=== PATIENT | male | born 1980 | race Caucasian/White ===

== ENCOUNTER → 2018-11-23 16:17 | Outpatient (CLI) | payer BC, SELFPAY | PROVIDERS: PCP Family Medicine; Visit Provider Family Medicine | DX: R53.83 Other fatigue (principal) | CPT/HCPCS: 36415; 84403 ==

== ENCOUNTER → 2020-10-05 12:26 | Outpatient (CLI) | payer OTHER, MEDICAID, SELFPAY ==
[2020-10-05 19:02] LABS: Semen Sperm Prescence Post-Vas Absent (ABSENT)
== END ==
PROVIDERS: PCP Family Medicine; Referring Provider Family Medicine; Visit Provider Family Medicine
DX: Z98.52 Vasectomy status (principal)
CPT/HCPCS: 89321

== ENCOUNTER → 2021-05-05 14:13 | Outpatient (CLI) | payer OTHER, MEDICAID, SELFPAY ==
--- NOTE | 2021-05-05 14:15 | DI.RAD.S_ITS ---
PROCEDURE: XR ELBOW LT MIN 3V INDICATIONS: elbow pain TECHNIQUE: 3 views of the elbow were acquired. COMPARISON: None. FINDINGS: Bones: No fractures or dislocations. No suspicious bony lesions. Soft tissues: No elbow joint effusion. No suspicious soft tissue calcifications. IMPRESSION: No acute osseous abnormality. Dictated by: Shalom Calhoun M.D. on 05/05/2021 at 14:46 Approved by: Shalom Calhoun M.D. on 05/05/2021 at 14:46
== END ==
PROVIDERS: PCP Family Medicine; Referring Provider Family Medicine; Visit Provider Family Medicine
DX: M25.522 Pain in left elbow (principal)
CPT/HCPCS: 73080

== ENCOUNTER → 2022-02-01 10:08 | Outpatient (CLI) | payer OTHER, MEDICAID, SELFPAY ==
[2022-02-01 12:14] LABS: Influenza A - CEPHEID Flu A NEGATIVE (NEGATIVE); Influenza B - CEPHEID Flu B NEGATIVE (NEGATIVE); Respiratory Syncytial Virus Negative (Negative)
[2022-02-01 12:16] LABS: COVID-19 CEPHEID 4-PLEX PCR Negative (Negative)
== END ==
PROVIDERS: PCP Family Medicine; Visit Provider Registered Nurse
DX: R05.9 Cough, unspecified (principal)
CPT/HCPCS: 0241U

== ENCOUNTER → 2023-01-29 15:55 | Outpatient (CLI) | payer OTHER, MEDICAID, SELFPAY ==
--- NOTE | 2023-01-29 15:57 | DI.US.S_ITS ---
PROCEDURE: US RENAL COMPLETE INDICATIONS: URINARY FREQUENCY; SENSATION OF POST VOID RESIDUAL TECHNIQUE: Real-time scanning was performed of the kidneys and bladder, with image documentation. COMPARISON: None. FINDINGS: Kidneys: Kidneys are normal in size. Right kidney measures 10.4 cm long; left kidney measures 2.1 cm long. Right renal cortical thickness is 10.0 cm; left renal cortical thickness is 2.0 cm. Renal cortical echotexture is normal. No hydronephrosis. Question small right renal stones. Question possible left renal pelvic stones. No suspicious solid mass lesions. Bladder: Pre-void bladder volume is 298.6 mL. Post-void residual is 47.4 mL. Pre-void images demonstrate no intraluminal masses or stones. On pre-void images, a unilateral right ureteral jets is noted with color Doppler interrogation. (Of note, ureteral jets may not be detectable in up to 25% of cases due to insufficient differences in specific gravity between ureteral and bladder urine). Miscellaneous: No free pelvic fluid. IMPRESSION: 1. Normal size kidneys with no evidence of hydronephrosis. 2. Possible bilateral nonobstructing renal stones. 3. Mild postvoid residual. Comment: Consider CT KUB to evaluate possible renal stone disease, including a possible left renal pelvic stone. Dictated by: Gavin Beaver M.D. on 01/29/2023 at 17:14 Approved by: Gavin Beaver M.D. on 01/29/2023 at 17:17
== END ==
PROVIDERS: PCP Family Medicine; Referring Provider Physician Assistant; Visit Provider Physician Assistant
DX: R35.0 Frequency of micturition (principal)
CPT/HCPCS: 76770

== ENCOUNTER → 2023-02-24 13:27 | Outpatient (CLI) | payer OTHER, MEDICAID, SELFPAY ==
--- NOTE | 2023-02-24 13:28 | DI.CT.S_ITS ---
PROCEDURE: CT KIDNEY URETER BLADDER (KUB) INDICATIONS: Back pain; kidney stones seen on renal US TECHNIQUE: Axial sections were acquired from the lung bases to the pubic symphysis. Coronal and sagittal reformats were performed. For radiation dose reduction, the following was used: automated exposure control, adjustment of mA and/or kV according to patient size. COMPARISON: [facility], US, US RENAL COMPLETE, 01/29/2023, 16:08. FINDINGS: Image quality: Excellent. Lung bases: Unremarkable. Heart: No significant findings. URINARY: Right Kidney: No stones or hydronephrosis. Right Ureter: No hydroureter. Left Kidney: No stones or hydronephrosis. Left Ureter: No hydroureter. Bladder: Normal wall thickness. No stones. ABDOMEN: Liver: No contour-deforming solid mass. Gallbladder: No radiopaque gallstones or wall thickening. Biliary ducts: No biliary dilation. Pancreas: No ductal dilation. Spleen: Size is within normal limits. Adrenal Glands: No adrenal nodules. Stomach and Bowel: Normal colonic caliber, without significant wall thickening. Peritoneum: No abnormal intraperitoneal fluid. No free air. Ventral Wall: No hernia. Abdominal Nodes: No enlarged retroperitoneal or mesenteric lymph nodes. Vessels: Aorta and inferior vena cava are normal in size. PELVIS: Pelvic Organs: Unremarkable. Pelvic Nodes: Unremarkable. Miscellaneous: No inguinal hernias are seen. Bones: Unremarkable. IMPRESSION: 1. No renal stone, ureteral stone, or hydronephrosis. 2. No acute abdominal process. Dictated by: Gavin Beaver M.D. on 02/24/2023 at 18:45 Approved by: Gavin Beaver M.D. on 02/24/2023 at 18:47
== END ==
PROVIDERS: Family Provider Family Medicine; PCP Family Medicine; Referring Provider Physician Assistant; Visit Provider Physician Assistant
DX: N20.0 Calculus of kidney (principal)
CPT/HCPCS: 74176

== ENCOUNTER → 2023-03-02 11:29 | Outpatient (CLI) | payer OTHER, MEDICAID, SELFPAY ==
[2023-03-02 12:39] LABS: COVID-19 CEPHEID 4-PLEX PCR Negative (Negative); Influenza A - CEPHEID Flu A NEGATIVE (NEGATIVE); Influenza B - CEPHEID Flu B NEGATIVE (NEGATIVE); Respiratory Syncytial Virus Negative (Negative)
== END ==
PROVIDERS: Family Provider Family Medicine; PCP Family Medicine; Visit Provider Physician Assistant
DX: R05.1 Acute cough (principal)
CPT/HCPCS: 0241U

== ENCOUNTER → 2023-07-31 17:41 | Outpatient (CLI) | payer OTHER, MEDICAID, SELFPAY | PROVIDERS: Family Provider Family Medicine; PCP Family Medicine; Visit Provider Nurse Practitioner Family | DX: J02.9 Acute pharyngitis, unspecified (principal) | CPT/HCPCS: 87070; 87880 ==

== ENCOUNTER 2023-09-13 15:15 | Outpatient (RCR) | payer OTHER, MEDICAID, SELFPAY ==
--- NOTE | 2023-03-23 10:23 | PT.OIE ---
Current Diagnoses Pain in right hip (03/23/23) Pain in right knee (03/23/23) Pain in left knee (03/23/23) Low back pain, unspecified (03/23/23) Muscle weakness (generalized) (03/23/23) Difficulty in walking, not elsewhere classified (03/23/23) Abnormal posture (03/23/23) Past Medical History (Last Reviewed 02/01/22 @ 10:29 by CONCETTA Beyer) Fatigue Trigger finger Past Surgical History (Last Reviewed 02/01/22 @ 10:29 by CONCETTA Beyer) History of third molar tooth extraction Visit Care Team Role Provider Type Mina Van MD Family Provider Physician Primary Care Provider Specialty: Family Practice Address: [address] [place] [address], [id number] Email: [email or web address] Ju Tafoya PA-C Attending Provider Advanced Food Aide Referring Provider Specialty: Medical Address: [address] [place] [address], [id number] Email: [email or web address] Physical Therapy Initial Evaluation PT-OP-A Visit Information Start: 03/09/23 10:58 Freq: Status: Active Protocol: Document 03/23/23 09:11 [facility] (Rec: 03/23/23 10:22 [facility] [id number]) Out-Patient Physical Therapy Visit Information Visit Information Visit Type Initial Evaluation Visit Note 24 total visits in the year Visit Start Time 09:10 Visit Stop Time 10:00 Total Visit Minutes 50 Visit Number 1 Number of BROADCAST NEWS PRODUCER Visits 0 PT-OP-B Current Condition Start: 03/09/23 10:58 Freq: Status: Active Protocol: Document 03/23/23 09:11 [facility] (Rec: 03/23/23 10:22 [facility] [id number]) Current Condition History of Current Condition Current Complaints R hip pain (1 year ago), back pain, B knee pain History of Current Condition Pt reports he has some stomach issues and is adjusting his diet. It seems its getting better but still a problem. he has cut out wheat, and coffee . Pt reports sometimes its just when he eats, that he has pain. Since going back to work, he has inc stress and notes he always had some stomach issues in HS when stressed. 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 He has neck pain, WEBBER, thoracic pain, R hip , LB, B feet and B hands. Hip issue comes and goes. Unsure if from his activities. Has been doing stretches which helps. He notes taking out the gluten has helped w/his dietary changes. He has lost about 10 lbs in last month. It first came on when stretching (tries to at night after work ). He was getting up off the floor and felt a pop in his hip and it has never been excrutiating, but it definitely affects like he is thinking about it. He doesn't notice it much when walking, but when when lifting leg out of bed, feels it in ant hip. Gets tingling in B ring and pinky finger. Knees and feet have been better since taken out wheat for past 3 weeks. LBP is always tight and tense and feels stiff. This has been several years. Does feel like the diet is improving. He used to have to wear shoes in his house d/t barefeet would cause back, knee and hip pian and now can not wear shoes, and only feels it way later in the activity and it is less severe. Goes through phases when real stiff and sore. 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 Thoracic pain has been since he was younger (27 y.o) and had pain in chest. He hasn't felt that again but still feels hot spots in back that come up. Has had B shoulder problems. Notices abdomen bloating and has hx of diahrea. Treatment Goals Patient/Caregiver Goals dec pain and be able to do normal activities w/o inc pain PT-OP-C Subjective Start: 03/09/23 10:58 Freq: Status: Active Protocol: Document 03/23/23 09:11 [facility] (Rec: 03/23/23 10:22 [facility] [id number]) Patient Questionnaires Lower Extremity Functional Scale LEFS Score 55/80 OP-PT Pain Assessment Location R hip Pain Location Details ant Description Sharp,With Movement Frequency Intermittent Other Pain Aggravating Factors lat and lifting RLE PT-OP-D Balance Start: 03/09/23 10:58 Freq: Status: Active Protocol: Document 03/23/23 09:11 [facility] (Rec: 03/23/23 10:22 [facility] [id number]) Balance Tests Single Limb Standing Single Limb- Right 25 sec w/inc deviation Single Limb- Left >30 sec PT-OP-G Mobility & Gait Start: 03/09/23 10:58 Freq: Status: Active Protocol: Document 03/23/23 09:11 [facility] (Rec: 03/23/23 10:22 [facility] [id number]) OP Gait Assessment Comments Gait Comments stiff in upper body, lat lean; dec stance time on RLE ( slighty); LEs turned out when walking PT-OP-J Posture/Palpation/Skin Start: 03/09/23 10:58 Freq: Status: Active Protocol: Document 03/23/23 09:11 [facility] (Rec: 03/23/23 10:22 [facility] [id number]) Posture Evaluation [facility] Postural Classification System Lumbar Protective Mechanism Left AP 1 Lumbar Protective Mechanism Right AP 0 Lumbar Protective Mechanism Left PA 0 Lumbar Protective Mechanism Right PA 1 PT-OP-K Range of Motion Start: 03/09/23 10:58 Freq: Status: Active Protocol: Document 03/23/23 09:11 [facility] (Rec: 03/23/23 10:22 [facility] [id number]) Hip Goniometric Range of Motion Hip Right Active Flexion w/Knee Flexed 84 Comments ant hip pain Left Active Flexion w/Knee Flexed 90 Comments ant hip pian PT-OP-M Strength Start: 03/09/23 10:58 Freq: Status: Active Protocol: Document 03/23/23 09:11 [facility] (Rec: 03/23/23 10:22 [facility] [id number]) Hip Strength Hip Manual Muscle Testing Right Flexion (L2) 3 Fair Extension (S1) 3+ Fair+ Abduction 3+ Fair+ Adduction 3 Fair External Rotation 3+ Fair+ Internal Rotation 3+ Fair+ Left Flexion (L2) 3 Fair Extension (S1) 4 Good Abduction 4 Good Adduction 3+ Fair+ External Rotation 3+ Fair+ Internal Rotation 3+ Fair+ Knee Strength Knee Manual Muscle Testing Right Flexion (S2) 4+ Good+ Extension (L3) 5 Normal Left Flexion (S2) 4 Good Extension (L3) 4+ Good+ PT-OP-Q Treatments Start: 03/09/23 10:58 Freq: Status: Active Protocol: Document 03/23/23 09:11 [facility] (Rec: 03/23/23 10:22 [facility] [id number]) Self-Care/Home Management Treatment Education Other Education 15 min: discussion about how gluten can create inflammatory affect and to cont this. Edu to keep an eye on dairy also as it is a common inflamatory. Edu how visceral restrictions can cause or connect w/LBP and hip pain. Discussed w/pt that his ROM, balance and strength is very limited and much less than would be expected of a man of his activity level and young age and this may be contributing to his pain. PT-OP-T Assessment and Plan Start: 03/09/23 10:58 Freq: Status: Active Protocol: Document 03/23/23 09:11 [facility] (Rec: 03/23/23 10:22 [facility] [id number]) Physical Therapy Assessment Rehab Potential Rehabilitation Potential Good Evaluation Complexity Number of Personal Factors/Comorbidities 3 or More Number of Body Systems Impaired 4 or More Clinical Presentation at Evaluation Evolving Impairments Impairments Activity Tolerance,Balance, Functional Activities, Functional Mobility,Gait,Pain, Posture,ROM,Soft Tissue Mobility,Strength Goals pain Short Term Goal (STG) pt will be able to lift LE in/ out of bed w/o in R hip pain. STG Duration 05/14/23 Skilled Nursing Goal (LTG) Pt will report no LE or back pain at the end of the day or when on his feet extended LTG Duration 06/15/23 balance Short Term Goal (STG) Pt will be able to do SLS on RLE EC for at least 30 sec STG Duration 05/14/23 Wharf Tender Helper Goal (LTG) Pt will be able to do SLS B w/ EC for at least 15 sec LTG Duration 06/15/23 strength Short Term Goal (STG) Pt will be indep w/HEP STG Duration 05/14/23 Wharf Tender Helper Goal (LTG) Pt will score 5/5 on all B LE MMT and at least 3/5 on LPM in all planes in order to show improved core and LE strength in order to create more LE stability during daily activities to dec pain LTG Duration 06/15/23 LEFS Impairment 55/80 Short Term Goal (STG) Pt will improve LEFS score to at least 62/80 to show improved functional ability. STG Duration 05/14/23 Wharf Tender Helper Goal (LTG) Pt will improve LEFS score to at least 75/80 to show improved functional ability. LTG Duration 06/15/23 Assessment Summary Assessment Pt presents w/R hip pain that started about 6 months ago when getting up from the ground after stretching and he heard a pop. He has the most pain in open chain activities that include hip flex and abd like getting out of bed. 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 He has pain in multiple joints and has found improvement w/pain w/dec gluten and coffee/caffeine. He does have B foot pain and knee pain w/standing and by the end of the day especially when barefoot which may affect R hip pain and back pain as those inc also and may affect hip position based on ankle/ knee position. He has dec balance for his age and activity level especially on R side along w/signficant R sided weakness and B (R>L) dec hip ROM w/impingment. He also has history of visceral issues w/clear CT scan of abdomen that have soem improvement w/diet change, but visceral ligamentous restrictions may affect mobility of his hip and back. Pt would benefit from skilled PT to work on dec back pain, hip pain and B Knee/ankle/foot pain. Physical Therapy Plan Frequency and Duration Frequency of Treatment 1-2x/wk Duration of treatment (weeks) 12 Plan of Care Start Date 03/23/23 Plan of Care End Date 06/15/23 Therapeutic Interventions Therapeutic Interventions Balance Training,Gait Training ,Home Exercise Program,Joint Mobilizations,Manual Therapy, Neuromuscular Re-education, Patient/Caregiver Education, Self-Care/Home Management,Soft Tissue Mobilization,Taping, Therapeutic Activities, Therapeutic Exercises Modalities Cold Pack/Ice Massage,Electric Stimulation,Infrared Therapy, Traction- Mechanical, Ultrasound Next Visit Focus/Plan Next Note Type Treatment Note Next Visit Plan manual: hip mobs (check if innominate elevated or leg length and possibly address innominate mobility), visceral mobilization; soft tissue to hip flexor HEP: standing hip strength ( squats, lunges, RDLs, sidesteps), SLS, hip hikes
--- NOTE | 2023-03-23 10:23 | PT.OPPOC ---
Physical, Occupational & Speech Therapy At [facility] Current Diagnoses Pain in right hip (03/23/23) Pain in right knee (03/23/23) Pain in left knee (03/23/23) Low back pain, unspecified (03/23/23) Muscle weakness (generalized) (03/23/23) Difficulty in walking, not elsewhere classified (03/23/23) Abnormal posture (03/23/23) Visit Care Team Role Provider Type Mina Van MD Family Provider Physician Primary Care Provider Specialty: Family Practice Address: [address] [place] [address], [address], [address] Email: [email or web address] Ju Tafoya PA-C Attending Provider Advanced Lawn Service Supervisor Referring Provider Specialty: Medical Address: [address] [place] [address], [place] [address] Email: [email or web address] Plan Of Care PT-OP-T Assessment and Plan Start: 03/09/23 10:58 Freq: Status: Active Protocol: Document 03/23/23 09:11 [facility] (Rec: 03/23/23 10:22 [facility] [id number]) Physical Therapy Assessment Rehab Potential Rehabilitation Potential Good Evaluation Complexity Number of Personal Factors/Comorbidities 3 or More Number of Body Systems Impaired 4 or More Clinical Presentation at Evaluation Evolving Impairments Impairments Activity Tolerance,Balance, Functional Activities, Functional Mobility,Gait,Pain, Posture,ROM,Soft Tissue Mobility,Strength Goals pain Short Term Goal (STG) pt will be able to lift LE in/ out of bed w/o in R hip pain. STG Duration 05/14/23 Shelter Goal (LTG) Pt will report no LE or back pain at the end of the day or when on his feet extended LTG Duration 06/15/23 balance Short Term Goal (STG) Pt will be able to do SLS on RLE EC for at least 30 sec STG Duration 05/14/23 Shelter Goal (LTG) Pt will be able to do SLS B w/ EC for at least 15 sec LTG Duration 06/15/23 strength Short Term Goal (STG) Pt will be indep w/HEP STG Duration 05/14/23 Shelter Goal (LTG) Pt will score 5/5 on all B LE MMT and at least 3/5 on LPM in all planes in order to show improved core and LE strength in order to create more LE stability during daily activities to dec pain LTG Duration 06/15/23 LEFS Impairment 55/80 Short Term Goal (STG) Pt will improve LEFS score to at least 62/80 to show improved functional ability. STG Duration 05/14/23 Shelter Goal (LTG) Pt will improve LEFS score to at least 75/80 to show improved functional ability. LTG Duration 06/15/23 Assessment Summary Assessment Pt presents w/R hip pain that started about 6 months ago when getting up from the ground after stretching and he heard a pop. He has the most pain in open chain activities that include hip flex and abd like getting out of bed. 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 He has pain in multiple joints and has found improvement w/pain w/dec gluten and coffee/caffeine. He does have B foot pain and knee pain w/standing and by the end of the day especially when barefoot which may affect R hip pain and back pain as those inc also and may affect hip position based on ankle/ knee position. He has dec balance for his age and activity level especially on R side along w/signficant R sided weakness and B (R>L) dec hip ROM w/impingment. He also has history of visceral issues w/clear CT scan of abdomen that have soem improvement w/diet change, but visceral ligamentous restrictions may affect mobility of his hip and back. Pt would benefit from skilled PT to work on dec back pain, hip pain and B Knee/ankle/foot pain. Physical Therapy Plan Frequency and Duration Frequency of Treatment 1-2x/wk Duration of treatment (weeks) 12 Plan of Care Start Date 03/23/23 Plan of Care End Date 06/15/23 Therapeutic Interventions Therapeutic Interventions Balance Training,Gait Training ,Home Exercise Program,Joint Mobilizations,Manual Therapy, Neuromuscular Re-education, Patient/Caregiver Education, Self-Care/Home Management,Soft Tissue Mobilization,Taping, Therapeutic Activities, Therapeutic Exercises Modalities Cold Pack/Ice Massage,Electric Stimulation,Infrared Therapy, Traction- Mechanical, Ultrasound Next Visit Focus/Plan Next Note Type Treatment Note Next Visit Plan manual: hip mobs (check if innominate elevated or leg length and possibly address innominate mobility), visceral mobilization; soft tissue to hip flexor HEP: standing hip strength ( squats, lunges, RDLs, sidesteps), SLS, hip hikes Plan of Care Dates Plan of Care Start Date 03/23/23 Plan of Care End Date 06/15/23 Electronically Signed by: Gifty Vernon, PT 03/23/23 1027 If you are in agreement with this Plan of Care, please return a signed and dated copy. I have reviewed this Plan of Care and certify that the skilled therapy services above are required to meet the patient?s needs. Physician Signature Date Printed Name and Credentials Clinical Instructor Signature Printed Name and Credentials
--- NOTE | 2023-03-25 10:49 | PT.OTN ---
Current Diagnoses Pain in right hip (03/25/23) Pain in right knee (03/25/23) Pain in left knee (03/25/23) Low back pain, unspecified (03/25/23) Muscle weakness (generalized) (03/25/23) Difficulty in walking, not elsewhere classified (03/25/23) Abnormal posture (03/25/23) Physical Therapy Treatment Note PT-OP-A Visit Information Start: 03/09/23 10:58 Freq: Status: Active Protocol: Document 03/25/23 08:20 [facility] (Rec: 03/25/23 10:48 [facility] [id number]) Out-Patient Physical Therapy Visit Information Visit Information Visit Type Treatment Note Visit Note 24 total visits in the year Visit Start Time 08:20 Visit Stop Time 09:10 Total Visit Minutes 50 Visit Number 2 Number of ANIMAL DAMAGE CONTROL AGENT Visits 0 PT-OP-B Current Condition Start: 03/09/23 10:58 Freq: Status: Active Protocol: Document 03/23/23 09:11 [facility] (Rec: 03/23/23 10:22 [facility] [id number]) Current Condition History of Current Condition Current Complaints R hip pain (1 year ago), back pain, B knee pain History of Current Condition Pt reports he has some stomach issues and is adjusting his diet. It seems its getting better but still a problem. he has cut out wheat, and coffee . Pt reports sometimes its just when he eats, that he has pain. Since going back to work, he has inc stress and notes he always had some stomach issues in HS when stressed. 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 He has neck pain, WEBBER, thoracic pain, R hip , LB, B feet and B hands. Hip issue comes and goes. Unsure if from his activities. Has been doing stretches which helps. He notes taking out the gluten has helped w/his dietary changes. He has lost about 10 lbs in last month. It first came on when stretching (tries to at night after work ). He was getting up off the floor and felt a pop in his hip and it has never been excrutiating, but it definitely affects like he is thinking about it. He doesn't notice it much when walking, but when when lifting leg out of bed, feels it in ant hip. Gets tingling in B ring and pinky finger. Knees and feet have been better since taken out wheat for past 3 weeks. LBP is always tight and tense and feels stiff. This has been several years. Does feel like the diet is improving. He used to have to wear shoes in his house d/t barefeet would cause back, knee and hip pian and now can not wear shoes, and only feels it way later in the activity and it is less severe. Goes through phases when real stiff and sore. 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 Thoracic pain has been since he was younger (27 y.o) and had pain in chest. He hasn't felt that again but still feels hot spots in back that come up. Has had B shoulder problems. Notices abdomen bloating and has hx of diahrea. Treatment Goals Patient/Caregiver Goals dec pain and be able to do normal activities w/o inc pain PT-OP-C Subjective Start: 03/09/23 10:58 Freq: Status: Active Protocol: Document 03/25/23 08:20 [facility] (Rec: 03/25/23 10:48 [facility] [id number]) OP-PT Subjective Patient Comments Patient Comments fine after eval PT-OP-D Balance Start: 03/09/23 10:58 Freq: Status: Active Protocol: Document 03/23/23 09:11 [facility] (Rec: 03/23/23 10:22 [facility] [id number]) Balance Tests Single Limb Standing Single Limb- Right 25 sec w/inc deviation Single Limb- Left >30 sec PT-OP-G Mobility & Gait Start: 03/09/23 10:58 Freq: Status: Active Protocol: Document 03/23/23 09:11 [facility] (Rec: 03/23/23 10:22 [facility] [id number]) OP Gait Assessment Comments Gait Comments stiff in upper body, lat lean; dec stance time on RLE ( slighty); LEs turned out when walking PT-OP-J Posture/Palpation/Skin Start: 03/09/23 10:58 Freq: Status: Active Protocol: Document 03/23/23 09:11 [facility] (Rec: 03/23/23 10:22 [facility] [id number]) Posture Evaluation [facility] Postural Classification System Lumbar Protective Mechanism Left AP 1 Lumbar Protective Mechanism Right AP 0 Lumbar Protective Mechanism Left PA 0 Lumbar Protective Mechanism Right PA 1 PT-OP-K Range of Motion Start: 03/09/23 10:58 Freq: Status: Active Protocol: Document 03/23/23 09:11 [facility] (Rec: 03/23/23 10:22 [facility] [id number]) Hip Goniometric Range of Motion Hip Right Active Flexion w/Knee Flexed 84 Comments ant hip pain Left Active Flexion w/Knee Flexed 90 Comments ant hip pian PT-OP-M Strength Start: 03/09/23 10:58 Freq: Status: Active Protocol: Document 03/23/23 09:11 [facility] (Rec: 03/23/23 10:22 [facility] [id number]) Hip Strength Hip Manual Muscle Testing Right Flexion (L2) 3 Fair Extension (S1) 3+ Fair+ Abduction 3+ Fair+ Adduction 3 Fair External Rotation 3+ Fair+ Internal Rotation 3+ Fair+ Left Flexion (L2) 3 Fair Extension (S1) 4 Good Abduction 4 Good Adduction 3+ Fair+ External Rotation 3+ Fair+ Internal Rotation 3+ Fair+ Knee Strength Knee Manual Muscle Testing Right Flexion (S2) 4+ Good+ Extension (L3) 5 Normal Left Flexion (S2) 4 Good Extension (L3) 4+ Good+ PT-OP-Q Treatments Start: 03/09/23 10:58 Freq: Status: Active Protocol: Document 03/25/23 08:20 [facility] (Rec: 03/25/23 10:48 [facility] [id number]) Therapeutic Exercises Prone Exercises hip rot Prone Exercise Name ER Side bilateral Equipment Used L1 Reps/Minutes 10 Standing Exercises HS stretch Side right Reps/Minutes 30 sec hip flexor stretch Side right Reps/Minutes 30 sec bottoms up Side bilateral Reps/Minutes 5 sec x10 Other Exercises forrest pose Side bilateral Reps/Minutes [id number] Comments 2x w/flex bias Manual Therapy Treatment Soft Tissue Mobilization hip flexor Body Location R Mobilization Type Sustained Pressure Intensity/Depth Moderate Body Position Supine back Body Location paraspinals Mobilization Type Rolling Intensity/Depth Moderate Body Position Prone Joint Mobilizations innominate Joint R caudal & B ER FM Body Position Prone hip Joint on axis ER FM w/manual facilitation at end range & R inf FM Body Position Prone PT-OP-T Assessment and Plan Start: 03/09/23 10:58 Freq: Status: Active Protocol: Document 03/25/23 08:20 [facility] (Rec: 03/25/23 10:48 [facility] [id number]) Physical Therapy Assessment Goals pain Short Term Goal (STG) pt will be able to lift LE in/ out of bed w/o in R hip pain. STG Duration 05/14/23 Digital Account Manager Goal (LTG) Pt will report no LE or back pain at the end of the day or when on his feet extended LTG Duration 06/15/23 balance Short Term Goal (STG) Pt will be able to do SLS on RLE EC for at least 30 sec STG Duration 05/14/23 Digital Account Manager Goal (LTG) Pt will be able to do SLS B w/ EC for at least 15 sec LTG Duration 06/15/23 strength Short Term Goal (STG) Pt will be indep w/HEP STG Duration 05/14/23 Group Home Goal (LTG) Pt will score 5/5 on all B LE MMT and at least 3/5 on LPM in all planes in order to show improved core and LE strength in order to create more LE stability during daily activities to dec pain LTG Duration 06/15/23 LEFS Impairment 55/80 Short Term Goal (STG) Pt will improve LEFS score to at least 62/80 to show improved functional ability. STG Duration 05/14/23 Digital Account Manager Goal (LTG) Pt will improve LEFS score to at least 75/80 to show improved functional ability. LTG Duration 06/15/23 Assessment Summary Assessment Pt did well with manual having much improved hip ER after. He did have R hip soreness and some back soreness w/manual and iced R hp prior to leaving clinic. he did well with stretching and mobility exercises w/o inc pain. Physical Therapy Plan Frequency and Duration Frequency of Treatment 1-2x/wk Duration of treatment (weeks) 12 Plan of Care Start Date 03/23/23 Plan of Care End Date 06/15/23 Next Visit Focus/Plan Next Note Type Treatment Note Next Visit Plan manual: hip mobs (check if innominate elevated or leg length and possibly address innominate mobility), visceral mobilization; soft tissue to hip flexor HEP: review exercises & add standing hip strength (squats, lunges, RDLs, sidesteps), SLS , hip hikes
--- NOTE | 2023-03-29 09:05 | PT.OTN ---
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 Original Note: Current Diagnoses Pain in right hip (03/29/23) Pain in right knee (03/29/23) Pain in left knee (03/29/23) Low back pain, unspecified (03/29/23) Muscle weakness (generalized) (03/29/23) Difficulty in walking, not elsewhere classified (03/29/23) Abnormal posture (03/29/23) Physical Therapy Treatment Note PT-OP-A Visit Information Start: 03/09/23 10:58 Freq: Status: Active Protocol: Document 03/29/23 08:21 [facility] (Rec: 03/29/23 09:06 [facility] [id number]) Out-Patient Physical Therapy Visit Information Visit Information Visit Type Treatment Note Visit Note [facility] PT: 06/05, total visits in the year Visit Start Time 08:21 Visit Stop Time 09:05 Total Visit Minutes 44 Visit Number 3 Number of BREAD ROOM HAND Visits 1 PT-OP-B Current Condition Start: 03/09/23 10:58 Freq: Status: Active Protocol: Document 03/23/23 09:11 [facility] (Rec: 03/23/23 10:22 [facility] [id number]) Current Condition History of Current Condition Current Complaints R hip pain (1 year ago), back pain, B knee pain History of Current Condition Pt reports he has some stomach issues and is adjusting his diet. It seems its getting better but still a problem. he has cut out wheat, and coffee . Pt reports sometimes its just when he eats, that he has pain. Since going back to work, he has inc stress and notes he always had some stomach issues in HS when stressed. 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 He has neck pain, WEBBER, thoracic pain, R hip , LB, B feet and B hands. Hip issue comes and goes. Unsure if from his activities. Has been doing stretches which helps. He notes taking out the gluten has helped w/his dietary changes. He has lost about 10 lbs in last month. It first came on when stretching (tries to at night after work ). He was getting up off the floor and felt a pop in his hip and it has never been excrutiating, but it definitely affects like he is thinking about it. He doesn't notice it much when walking, but when when lifting leg out of bed, feels it in ant hip. Gets tingling in B ring and pinky finger. Knees and feet have been better since taken out wheat for past 3 weeks. LBP is always tight and tense and feels stiff. This has been several years. Does feel like the diet is improving. He used to have to wear shoes in his house d/t barefeet would cause back, knee and hip pian and now can not wear shoes, and only feels it way later in the activity and it is less severe. Goes through phases when real stiff and sore. 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 Thoracic pain has been since he was younger (27 y.o) and had pain in chest. He hasn't felt that again but still feels hot spots in back that come up. Has had B shoulder problems. Notices abdomen bloating and has hx of diahrea. Treatment Goals Patient/Caregiver Goals dec pain and be able to do normal activities w/o inc pain PT-OP-C Subjective Start: 03/09/23 10:58 Freq: Status: Active Protocol: Document 03/29/23 08:21 [facility] (Rec: 03/29/23 09:06 [facility] [id number]) OP-PT Subjective Patient Comments Patient Comments Pt did ok after last tx into later and next day. COmpliant with HEP. Feels discomfort L anterior hip when lifts leg unsupported or squatting. PT-OP-D Balance Start: 03/09/23 10:58 Freq: Status: Active Protocol: Document 03/23/23 09:11 [facility] (Rec: 03/23/23 10:22 [facility] [id number]) Balance Tests Single Limb Standing Single Limb- Right 25 sec w/inc deviation Single Limb- Left >30 sec PT-OP-G Mobility & Gait Start: 03/09/23 10:58 Freq: Status: Active Protocol: Document 03/23/23 09:11 [facility] (Rec: 03/23/23 10:22 [facility] [id number]) OP Gait Assessment Comments Gait Comments stiff in upper body, lat lean; dec stance time on RLE ( slighty); LEs turned out when walking PT-OP-J Posture/Palpation/Skin Start: 03/09/23 10:58 Freq: Status: Active Protocol: Document 03/23/23 09:11 [facility] (Rec: 03/23/23 10:22 [facility] [id number]) Posture Evaluation [facility] Postural Classification System Lumbar Protective Mechanism Left AP 1 Lumbar Protective Mechanism Right AP 0 Lumbar Protective Mechanism Left PA 0 Lumbar Protective Mechanism Right PA 1 PT-OP-K Range of Motion Start: 03/09/23 10:58 Freq: Status: Active Protocol: Document 03/23/23 09:11 [facility] (Rec: 03/23/23 10:22 [facility] [id number]) Hip Goniometric Range of Motion Hip Right Active Flexion w/Knee Flexed 84 Comments ant hip pain Left Active Flexion w/Knee Flexed 90 Comments ant hip pian PT-OP-M Strength Start: 03/09/23 10:58 Freq: Status: Active Protocol: Document 03/23/23 09:11 [facility] (Rec: 03/23/23 10:22 [facility] [id number]) Hip Strength Hip Manual Muscle Testing Right Flexion (L2) 3 Fair Extension (S1) 3+ Fair+ Abduction 3+ Fair+ Adduction 3 Fair External Rotation 3+ Fair+ Internal Rotation 3+ Fair+ Left Flexion (L2) 3 Fair Extension (S1) 4 Good Abduction 4 Good Adduction 3+ Fair+ External Rotation 3+ Fair+ Internal Rotation 3+ Fair+ Knee Strength Knee Manual Muscle Testing Right Flexion (S2) 4+ Good+ Extension (L3) 5 Normal Left Flexion (S2) 4 Good Extension (L3) 4+ Good+ PT-OP-Q Treatments Start: 03/09/23 10:58 Freq: Status: Active Protocol: Document 03/29/23 08:21 [facility] (Rec: 03/29/23 09:06 [facility] [id number]) Therapeutic Exercises Supine Exercises Alberto stretch Supine Exercise Name trialed in PT Comments report ok, finds standing best stretch benefit Standing Exercises hip flexor stretch Side right Reps/Minutes 30 sec Comments cued PPT good increase stretch Other Exercises self STMs Other Exercise Name glut Side right Equipment Used ball wall lacrosse ball best Reps/Minutes 2 min total Comments time finding ball best relaxing/benefit results Manual Therapy Treatment Soft Tissue Mobilization hip flexor Body Location R prox RF, Mobilization Type Sustained Pressure,Other Intensity/Depth Moderate Body Position Supine Comments hip IR/ER Joint Mobilizations hip Joint R hip IR /c piriformis positioning Direction inferior, lateral Grade II Body Position Hooklying Comments pt reports slight decrease in pinching anterior R hip, good gentle post hip distraction. PT-OP-T Assessment and Plan Start: 03/09/23 10:58 Freq: Status: Active Protocol: Document 03/29/23 08:21 [facility] (Rec: 03/29/23 09:06 [facility] [id number]) Physical Therapy Assessment Goals pain Short Term Goal (STG) pt will be able to lift LE in/ out of bed w/o in R hip pain. STG Duration 05/14/23 Hydraulic Press Operator Goal (LTG) Pt will report no LE or back pain at the end of the day or when on his feet extended LTG Duration 06/15/23 balance Short Term Goal (STG) Pt will be able to do SLS on RLE EC for at least 30 sec STG Duration 05/14/23 Hydraulic Press Operator Goal (LTG) Pt will be able to do SLS B w/ EC for at least 15 sec LTG Duration 06/15/23 strength Short Term Goal (STG) Pt will be indep w/HEP STG Duration 05/14/23 Half-Way Goal (LTG) Pt will score 5/5 on all B LE MMT and at least 3/5 on LPM in all planes in order to show improved core and LE strength in order to create more LE stability during daily activities to dec pain LTG Duration 06/15/23 LEFS Impairment 55/80 Short Term Goal (STG) Pt will improve LEFS score to at least 62/80 to show improved functional ability. STG Duration 05/14/23 Hydraulic Press Operator Goal (LTG) Pt will improve LEFS score to at least 75/80 to show improved functional ability. LTG Duration 06/15/23 Assessment Summary Assessment Pt good response to manual and stretching HEP review today. GOod response to self STM use ball on wall over posterior and anterior R hip, stated lacrosse ball best relief. Will progression strengthening next tx. Physical Therapy Plan Frequency and Duration Frequency of Treatment 1-2x/wk Duration of treatment (weeks) 12 Plan of Care Start Date 03/23/23 Plan of Care End Date 06/15/23 Therapeutic Interventions Therapeutic Interventions Balance Training,Gait Training ,Home Exercise Program,Joint Mobilizations,Manual Therapy, Neuromuscular Re-education, Patient/Caregiver Education, Self-Care/Home Management,Soft Tissue Mobilization,Taping, Therapeutic Activities, Therapeutic Exercises Modalities Cold Pack/Ice Massage,Electric Stimulation,Infrared Therapy, Traction- Mechanical, Ultrasound Next Visit Focus/Plan Next Note Type Treatment Note Next Visit Plan manual: hip mobs (check if innominate elevated or leg length and possibly address innominate mobility), visceral mobilization; soft tissue to hip flexor. *Pt asked if able to do self mob or can show how support home if needed can coordinate. HEP: review exercises & add standing hip strength (squats, lunges, RDLs, sidesteps), SLS , hip hikes
--- NOTE | 2023-03-31 09:03 | PT.OTN ---
Current Diagnoses Pain in right hip (03/31/23) Pain in right knee (03/31/23) Pain in left knee (03/31/23) Low back pain, unspecified (03/31/23) Muscle weakness (generalized) (03/31/23) Difficulty in walking, not elsewhere classified (03/31/23) Abnormal posture (03/31/23) Physical Therapy Treatment Note PT-OP-A Visit Information Start: 03/09/23 10:58 Freq: Status: Active Protocol: Document 03/31/23 08:21 SP (Rec: 03/31/23 09:05 SP [id number]) Out-Patient Physical Therapy Visit Information Visit Information Visit Type Treatment Note Visit Note IH PT: 07/06, total visits in the year Visit Start Time 08:21 Visit Stop Time 09:03 Total Visit Minutes 42 Visit Number 4 Number of BILINGUAL MEDICAL RECEPTIONIST Visits 2 PT-OP-B Current Condition Start: 03/09/23 10:58 Freq: Status: Active Protocol: Document 03/23/23 09:11 [facility] (Rec: 03/23/23 10:22 [facility] [id number]) Current Condition History of Current Condition Current Complaints R hip pain (1 year ago), back pain, B knee pain History of Current Condition Pt reports he has some stomach issues and is adjusting his diet. It seems its getting better but still a problem. he has cut out wheat, and coffee . Pt reports sometimes its just when he eats, that he has pain. Since going back to work, he has inc stress and notes he always had some stomach issues in HS when stressed. 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 He has neck pain, WEBBER, thoracic pain, R hip , LB, B feet and B hands. Hip issue comes and goes. Unsure if from his activities. Has been doing stretches which helps. He notes taking out the gluten has helped w/his dietary changes. He has lost about 10 lbs in last month. It first came on when stretching (tries to at night after work ). He was getting up off the floor and felt a pop in his hip and it has never been excrutiating, but it definitely affects like he is thinking about it. He doesn't notice it much when walking, but when when lifting leg out of bed, feels it in ant hip. Gets tingling in B ring and pinky finger. Knees and feet have been better since taken out wheat for past 3 weeks. LBP is always tight and tense and feels stiff. This has been several years. Does feel like the diet is improving. He used to have to wear shoes in his house d/t barefeet would cause back, knee and hip pian and now can not wear shoes, and only feels it way later in the activity and it is less severe. Goes through phases when real stiff and sore. 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 Thoracic pain has been since he was younger (27 y.o) and had pain in chest. He hasn't felt that again but still feels hot spots in back that come up. Has had B shoulder problems. Notices abdomen bloating and has hx of diahrea. Treatment Goals Patient/Caregiver Goals dec pain and be able to do normal activities w/o inc pain PT-OP-C Subjective Start: 03/09/23 10:58 Freq: Status: Active Protocol: Document 03/31/23 08:21 SP (Rec: 03/31/23 09:05 SP [id number]) OP-PT Subjective Patient Comments Patient Comments Pt reports not flare up pinch as much. Still challenge liftt /lower up leg to put in car/ bed. He has been compliant with HEP and suprised how strong and effective the down dog HS stretch provides him and tightness has. PT-OP-D Balance Start: 03/09/23 10:58 Freq: Status: Active Protocol: Document 03/23/23 09:11 [facility] (Rec: 03/23/23 10:22 [facility] [id number]) Balance Tests Single Limb Standing Single Limb- Right 25 sec w/inc deviation Single Limb- Left >30 sec PT-OP-G Mobility & Gait Start: 03/09/23 10:58 Freq: Status: Active Protocol: Document 03/23/23 09:11 [facility] (Rec: 03/23/23 10:22 [facility] [id number]) OP Gait Assessment Comments Gait Comments stiff in upper body, lat lean; dec stance time on RLE ( slighty); LEs turned out when walking PT-OP-J Posture/Palpation/Skin Start: 03/09/23 10:58 Freq: Status: Active Protocol: Document 03/23/23 09:11 [facility] (Rec: 03/23/23 10:22 [facility] [id number]) Posture Evaluation [facility] Postural Classification System Lumbar Protective Mechanism Left AP 1 Lumbar Protective Mechanism Right AP 0 Lumbar Protective Mechanism Left PA 0 Lumbar Protective Mechanism Right PA 1 PT-OP-K Range of Motion Start: 03/09/23 10:58 Freq: Status: Active Protocol: Document 03/23/23 09:11 [facility] (Rec: 03/23/23 10:22 [facility] [id number]) Hip Goniometric Range of Motion Hip Right Active Flexion w/Knee Flexed 84 Comments ant hip pain Left Active Flexion w/Knee Flexed 90 Comments ant hip pian PT-OP-M Strength Start: 03/09/23 10:58 Freq: Status: Active Protocol: Document 03/23/23 09:11 [facility] (Rec: 03/23/23 10:22 [facility] [id number]) Hip Strength Hip Manual Muscle Testing Right Flexion (L2) 3 Fair Extension (S1) 3+ Fair+ Abduction 3+ Fair+ Adduction 3 Fair External Rotation 3+ Fair+ Internal Rotation 3+ Fair+ Left Flexion (L2) 3 Fair Extension (S1) 4 Good Abduction 4 Good Adduction 3+ Fair+ External Rotation 3+ Fair+ Internal Rotation 3+ Fair+ Knee Strength Knee Manual Muscle Testing Right Flexion (S2) 4+ Good+ Extension (L3) 5 Normal Left Flexion (S2) 4 Good Extension (L3) 4+ Good+ PT-OP-Q Treatments Start: 03/09/23 10:58 Freq: Status: Active Protocol: Document 03/31/23 08:21 SP (Rec: 03/31/23 09:05 SP [id number]) Therapeutic Exercises Prone Exercises hip rot Prone Exercise Name ER (180 * hip /90-110* knee flexion /c hip ER) Side bilateral Resistance L1 around ankle, anchored laterally Equipment Used rolled towel under distal thigh- helped decrease HS compen's on R Reps/Minutes 2x10 Comments cued anterior pelvis not lift off table but no LB arch recruitment/TA fac Sidelying Exercises hip abd Sidelying Exercise Name discussion continue self ex but can add TB #1 thighs if ok Comments recheck next tx clamshell Sidelying Exercise Name discussion continue self ex but can add TB #1 if ok Comments recheck next tx Standing Exercises hip flexor stretch Side right Reps/Minutes 30 sec Comments cued PPT good increase stretch bottoms up Standing Exercise Name downward dog Side bilateral Equipment Used BUE on 4 step Reps/Minutes 10 sec x10 Comments cued pelvic lift as able prox HS stretch- good stretch response Other Exercises self STMs Other Exercise Name glut, distal HS over lacrosse ball Side right Equipment Used crab pos on floor Reps/Minutes 2 min total Comments good feedback decrease hip tightness Manual Therapy Treatment Soft Tissue Mobilization hip flexor Body Location R prox RF & TFL, piriformis Mobilization Type Sustained Pressure,Other Intensity/Depth Moderate Body Position Supine Comments MWM hip IR/ER long axis, side Piriformis FM clamshell - good feedback releases, ed and then had pt perform over lacrosse ball per pt request. PT-OP-T Assessment and Plan Start: 03/09/23 10:58 Freq: Status: Active Protocol: Document 03/31/23 08:21 SP (Rec: 03/31/23 09:05 SP [id number]) Physical Therapy Assessment Goals pain Short Term Goal (STG) pt will be able to lift LE in/ out of bed w/o in R hip pain. STG Duration 05/14/23 Space Systems Operations Manager Goal (LTG) Pt will report no LE or back pain at the end of the day or when on his feet extended LTG Duration 06/15/23 balance Short Term Goal (STG) Pt will be able to do SLS on RLE EC for at least 30 sec STG Duration 05/14/23 Space Systems Operations Manager Goal (LTG) Pt will be able to do SLS B w/ EC for at least 15 sec LTG Duration 06/15/23 strength Short Term Goal (STG) Pt will be indep w/HEP STG Duration 05/14/23 Space Systems Operations Manager Goal (LTG) Pt will score 5/5 on all B LE MMT and at least 3/5 on LPM in all planes in order to show improved core and LE strength in order to create more LE stability during daily activities to dec pain LTG Duration 06/15/23 LEFS Impairment 55/80 Short Term Goal (STG) Pt will improve LEFS score to at least 62/80 to show improved functional ability. STG Duration 05/14/23 Half-Way Goal (LTG) Pt will improve LEFS score to at least 75/80 to show improved functional ability. LTG Duration 06/15/23 Assessment Summary Assessment Pt good feedback to manual, ed and self performance of self STMs use lacrosse ball on floor. Good feedback HS stretch, cues for use 4 step at first then progress to floor to allow ease into flexibility HS and LS, better response tolerance. Improved hip ER strengthening withdecreased HS recruitment with rolled towel under distal thigh and ed cues for anchor TB indoor at ankle height for self performance vs couch leg to low, difference in effort. Cues for PPT and needed TA fac during LLE hip ER decreased LS recruitment understanding for self corrections needed. REports good weakness muscle tiring to hip musculature. Physical Therapy Plan Frequency and Duration Frequency of Treatment 1-2x/wk Duration of treatment (weeks) 12 Plan of Care Start Date 03/23/23 Plan of Care End Date 06/15/23 Therapeutic Interventions Therapeutic Interventions Balance Training,Gait Training ,Home Exercise Program,Joint Mobilizations,Manual Therapy, Neuromuscular Re-education, Patient/Caregiver Education, Self-Care/Home Management,Soft Tissue Mobilization,Taping, Therapeutic Activities, Therapeutic Exercises Modalities Cold Pack/Ice Massage,Electric Stimulation,Infrared Therapy, Traction- Mechanical, Ultrasound Next Visit Focus/Plan Next Note Type Treatment Note Next Visit Plan Check use manual: hip mobs ( check if innominate elevated or leg length and possibly address innominate mobility), visceral mobilization; soft tissue to hip flexor. *Pt asked if able to do self mob or can show how support home if needed can coordinate. HEP: review exercises & add standing hip strength (squats, lunges, RDLs, sidesteps), SLS , hip hikes
--- NOTE | 2023-04-08 16:04 | PT.OTN ---
Current Diagnoses Pain in right hip (04/08/23) Pain in right knee (04/08/23) Pain in left knee (04/08/23) Low back pain, unspecified (04/08/23) Muscle weakness (generalized) (04/08/23) Difficulty in walking, not elsewhere classified (04/08/23) Abnormal posture (04/08/23) Physical Therapy Treatment Note PT-OP-A Visit Information Start: 03/09/23 10:58 Freq: Status: Active Protocol: Document 04/08/23 08:04 AB (Rec: 04/08/23 12:08 AB [id number]) Out-Patient Physical Therapy Visit Information Visit Information Visit Type Treatment Note Visit Note IH PT: 08/05, total visits in the year Visit Start Time 08:18 Visit Stop Time 09:00 Visit Number 5 Number of PROFESSOR OF FRENCH Visits 3 PT-OP-B Current Condition Start: 03/09/23 10:58 Freq: Status: Active Protocol: Document 03/23/23 09:11 [facility] (Rec: 03/23/23 10:22 [facility] [id number]) Current Condition History of Current Condition Current Complaints R hip pain (1 year ago), back pain, B knee pain History of Current Condition Pt reports he has some stomach issues and is adjusting his diet. It seems its getting better but still a problem. he has cut out wheat, and coffee . Pt reports sometimes its just when he eats, that he has pain. Since going back to work, he has inc stress and notes he always had some stomach issues in HS when stressed. 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 He has neck pain, WEBBER, thoracic pain, R hip , LB, B feet and B hands. Hip issue comes and goes. Unsure if from his activities. Has been doing stretches which helps. He notes taking out the gluten has helped w/his dietary changes. He has lost about 10 lbs in last month. It first came on when stretching (tries to at night after work ). He was getting up off the floor and felt a pop in his hip and it has never been excrutiating, but it definitely affects like he is thinking about it. He doesn't notice it much when walking, but when when lifting leg out of bed, feels it in ant hip. Gets tingling in B ring and pinky finger. Knees and feet have been better since taken out wheat for past 3 weeks. LBP is always tight and tense and feels stiff. This has been several years. Does feel like the diet is improving. He used to have to wear shoes in his house d/t barefeet would cause back, knee and hip pian and now can not wear shoes, and only feels it way later in the activity and it is less severe. Goes through phases when real stiff and sore. 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 Thoracic pain has been since he was younger (27 y.o) and had pain in chest. He hasn't felt that again but still feels hot spots in back that come up. Has had B shoulder problems. Notices abdomen bloating and has hx of diahrea. Treatment Goals Patient/Caregiver Goals dec pain and be able to do normal activities w/o inc pain PT-OP-C Subjective Start: 03/09/23 10:58 Freq: Status: Active Protocol: Document 04/08/23 08:04 AB (Rec: 04/08/23 12:08 AB [id number]) OP-PT Subjective Patient Comments Patient Comments Patient reports he is getting better. Patient reports squatting and pulling knee up to chest increases pain. PT-OP-D Balance Start: 03/09/23 10:58 Freq: Status: Active Protocol: Document 03/23/23 09:11 [facility] (Rec: 03/23/23 10:22 [facility] [id number]) Balance Tests Single Limb Standing Single Limb- Right 25 sec w/inc deviation Single Limb- Left >30 sec PT-OP-G Mobility & Gait Start: 03/09/23 10:58 Freq: Status: Active Protocol: Document 03/23/23 09:11 [facility] (Rec: 03/23/23 10:22 [facility] [id number]) OP Gait Assessment Comments Gait Comments stiff in upper body, lat lean; dec stance time on RLE ( slighty); LEs turned out when walking PT-OP-J Posture/Palpation/Skin Start: 03/09/23 10:58 Freq: Status: Active Protocol: Document 03/23/23 09:11 [facility] (Rec: 03/23/23 10:22 [facility] [id number]) Posture Evaluation [facility] Postural Classification System Lumbar Protective Mechanism Left AP 1 Lumbar Protective Mechanism Right AP 0 Lumbar Protective Mechanism Left PA 0 Lumbar Protective Mechanism Right PA 1 PT-OP-K Range of Motion Start: 03/09/23 10:58 Freq: Status: Active Protocol: Document 03/23/23 09:11 [facility] (Rec: 03/23/23 10:22 [facility] [id number]) Hip Goniometric Range of Motion Hip Right Active Flexion w/Knee Flexed 84 Comments ant hip pain Left Active Flexion w/Knee Flexed 90 Comments ant hip pian PT-OP-M Strength Start: 03/09/23 10:58 Freq: Status: Active Protocol: Document 03/23/23 09:11 [facility] (Rec: 03/23/23 10:22 [facility] [id number]) Hip Strength Hip Manual Muscle Testing Right Flexion (L2) 3 Fair Extension (S1) 3+ Fair+ Abduction 3+ Fair+ Adduction 3 Fair External Rotation 3+ Fair+ Internal Rotation 3+ Fair+ Left Flexion (L2) 3 Fair Extension (S1) 4 Good Abduction 4 Good Adduction 3+ Fair+ External Rotation 3+ Fair+ Internal Rotation 3+ Fair+ Knee Strength Knee Manual Muscle Testing Right Flexion (S2) 4+ Good+ Extension (L3) 5 Normal Left Flexion (S2) 4 Good Extension (L3) 4+ Good+ PT-OP-Q Treatments Start: 03/09/23 10:58 Freq: Status: Active Protocol: Document 04/08/23 08:04 AB (Rec: 04/08/23 12:08 AB [id number]) Therapeutic Exercises Supine Exercises knee to chest Supine Exercise Name with towel roll at groin for gapping Side bilateral Reps/Minutes 1 Comments monitored for pinching sensation at groin Alberto stretch Supine Exercise Name edge of bed Side bilateral Reps/Minutes one minute holds X3 Comments Monitored for back pain Standing Exercises bottoms up Standing Exercise Name bottoms up Side bilateral Equipment Used BUE on bolster Reps/Minutes 10 sec x10 X2 Comments monitored for pain Therapeutic Activity Therapeutic Activity sit to stand Name sit to stand with hip hinge Reps/Minutes X3 X 2 Comments Patient ed self tactile cues for hip hinge and to avoid excessive toeing out. Manual Therapy Treatment Soft Tissue Mobilization gluteal/piriformis Body Location glut/piriformis Mobilization Type Rolling,Strumming,Sustained Pressure Intensity/Depth Moderate Body Position Prone Comments monitored for pain hip flexors Body Location hip flexors at groin Mobilization Type Rolling,Strumming,Sustained Pressure Intensity/Depth Moderate Body Position Hooklying Comments Monitored for pain Manual Techniques contract relax into hip IR Type PROM into IR contract relax Body Location hip Body Position Prone Reps/Duration 1 Comments monitored for pain Muscle energy tech Type pubic shot gun and MET for right AI left PI with dowel Reps/Duration 6X 6 each Comments verbal cues for duration of hold direction of force, positioning assist for dowel Self-Care/Home Management Treatment Education Other Education Patient ed rationale of breathing from diaphragm to relax muscles. Patient ed rationale of lying hooklying with LE's elevated, knees and hips flexed 90 deg ( modified restorative pose )to relax muscles while breathing from diaphragm ( positioning during STM to hip flexors during session ) PT-OP-T Assessment and Plan Start: 03/09/23 10:58 Freq: Status: Active Protocol: Document 04/08/23 08:04 AB (Rec: 04/08/23 12:08 AB [id number]) Physical Therapy Assessment Goals pain Short Term Goal (STG) pt will be able to lift LE in/ out of bed w/o in R hip pain. STG Duration 05/14/23 [facility] Goal (LTG) Pt will report no LE or back pain at the end of the day or when on his feet extended LTG Duration 06/15/23 balance Short Term Goal (STG) Pt will be able to do SLS on RLE EC for at least 30 sec STG Duration 05/14/23 Obstetrics Specialist Goal (LTG) Pt will be able to do SLS B w/ EC for at least 15 sec LTG Duration 06/15/23 strength Short Term Goal (STG) Pt will be indep w/HEP STG Duration 05/14/23 Obstetrics Specialist Goal (LTG) Pt will score 5/5 on all B LE MMT and at least 3/5 on LPM in all planes in order to show improved core and LE strength in order to create more LE stability during daily activities to dec pain LTG Duration 06/15/23 LEFS Impairment 55/80 Short Term Goal (STG) Pt will improve LEFS score to at least 62/80 to show improved functional ability. STG Duration 05/14/23 Obstetrics Specialist Goal (LTG) Pt will improve LEFS score to at least 75/80 to show improved functional ability. LTG Duration 06/15/23 Assessment Summary Assessment Patient into session with right AI left PI, reports of pinching at groin with PROM hip flexion and increased stiffness into hip IR. Patient reports decreased pinching at groin and feeling looser end of session. Access code [email or web address] Physical Therapy Plan Frequency and Duration Frequency of Treatment 1-2x/wk Duration of treatment (weeks) 12 Plan of Care Start Date 03/23/23 Plan of Care End Date 06/15/23 Next Visit Focus/Plan Next Note Type Treatment Note Next Visit Plan Check use manual: hip mobs ( check if innominate elevated or leg length and possibly address innominate mobility), visceral mobilization; soft tissue to hip flexor. *Pt asked if able to do self mob or can show how support home if needed can coordinate. HEP: review exercises & add standing hip strength (squats, lunges, RDLs, sidesteps), SLS , hip hikes Possibly squat with band, glute med activation.
--- NOTE | 2023-04-08 16:04 | PT.OTN ---
Current Diagnoses Pain in right hip (04/08/23) Pain in right knee (04/08/23) Pain in left knee (04/08/23) Low back pain, unspecified (04/08/23) Muscle weakness (generalized) (04/08/23) Difficulty in walking, not elsewhere classified (04/08/23) Abnormal posture (04/08/23) Physical Therapy Treatment Note PT-OP-A Visit Information Start: 03/09/23 10:58 Freq: Status: Active Protocol: Document 04/08/23 08:04 AB (Rec: 04/08/23 12:08 AB [id number]) Out-Patient Physical Therapy Visit Information Visit Information Visit Type Treatment Note Visit Note IH PT: 08/05, total visits in the year Visit Start Time 08:18 Visit Stop Time 09:00 Visit Number 5 Number of COTTON DISPATCHER Visits 3 PT-OP-B Current Condition Start: 03/09/23 10:58 Freq: Status: Active Protocol: Document 03/23/23 09:11 [facility] (Rec: 03/23/23 10:22 [facility] [id number]) Current Condition History of Current Condition Current Complaints R hip pain (1 year ago), back pain, B knee pain History of Current Condition Pt reports he has some stomach issues and is adjusting his diet. It seems its getting better but still a problem. he has cut out wheat, and coffee . Pt reports sometimes its just when he eats, that he has pain. Since going back to work, he has inc stress and notes he always had some stomach issues in HS when stressed. 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 He has neck pain, WEBBER, thoracic pain, R hip , LB, B feet and B hands. Hip issue comes and goes. Unsure if from his activities. Has been doing stretches which helps. He notes taking out the gluten has helped w/his dietary changes. He has lost about 10 lbs in last month. It first came on when stretching (tries to at night after work ). He was getting up off the floor and felt a pop in his hip and it has never been excrutiating, but it definitely affects like he is thinking about it. He doesn't notice it much when walking, but when when lifting leg out of bed, feels it in ant hip. Gets tingling in B ring and pinky finger. Knees and feet have been better since taken out wheat for past 3 weeks. LBP is always tight and tense and feels stiff. This has been several years. Does feel like the diet is improving. He used to have to wear shoes in his house d/t barefeet would cause back, knee and hip pian and now can not wear shoes, and only feels it way later in the activity and it is less severe. Goes through phases when real stiff and sore. 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 Thoracic pain has been since he was younger (27 y.o) and had pain in chest. He hasn't felt that again but still feels hot spots in back that come up. Has had B shoulder problems. Notices abdomen bloating and has hx of diahrea. Treatment Goals Patient/Caregiver Goals dec pain and be able to do normal activities w/o inc pain PT-OP-C Subjective Start: 03/09/23 10:58 Freq: Status: Active Protocol: Document 04/08/23 08:04 AB (Rec: 04/08/23 12:08 AB [id number]) OP-PT Subjective Patient Comments Patient Comments Patient reports he is getting better. Patient reports squatting and pulling knee up to chest increases pain. PT-OP-D Balance Start: 03/09/23 10:58 Freq: Status: Active Protocol: Document 03/23/23 09:11 [facility] (Rec: 03/23/23 10:22 [facility] [id number]) Balance Tests Single Limb Standing Single Limb- Right 25 sec w/inc deviation Single Limb- Left >30 sec PT-OP-G Mobility & Gait Start: 03/09/23 10:58 Freq: Status: Active Protocol: Document 03/23/23 09:11 [facility] (Rec: 03/23/23 10:22 [facility] [id number]) OP Gait Assessment Comments Gait Comments stiff in upper body, lat lean; dec stance time on RLE ( slighty); LEs turned out when walking PT-OP-J Posture/Palpation/Skin Start: 03/09/23 10:58 Freq: Status: Active Protocol: Document 03/23/23 09:11 [facility] (Rec: 03/23/23 10:22 [facility] [id number]) Posture Evaluation Clement Postural Classification System Lumbar Protective Mechanism Left AP 1 Lumbar Protective Mechanism Right AP 0 Lumbar Protective Mechanism Left PA 0 Lumbar Protective Mechanism Right PA 1 PT-OP-K Range of Motion Start: 03/09/23 10:58 Freq: Status: Active Protocol: Document 03/23/23 09:11 [facility] (Rec: 03/23/23 10:22 [facility] [id number]) Hip Goniometric Range of Motion Hip Right Active Flexion w/Knee Flexed 84 Comments ant hip pain Left Active Flexion w/Knee Flexed 90 Comments ant hip pian PT-OP-M Strength Start: 03/09/23 10:58 Freq: Status: Active Protocol: Document 03/23/23 09:11 [facility] (Rec: 03/23/23 10:22 [facility] [id number]) Hip Strength Hip Manual Muscle Testing Right Flexion (L2) 3 Fair Extension (S1) 3+ Fair+ Abduction 3+ Fair+ Adduction 3 Fair External Rotation 3+ Fair+ Internal Rotation 3+ Fair+ Left Flexion (L2) 3 Fair Extension (S1) 4 Good Abduction 4 Good Adduction 3+ Fair+ External Rotation 3+ Fair+ Internal Rotation 3+ Fair+ Knee Strength Knee Manual Muscle Testing Right Flexion (S2) 4+ Good+ Extension (L3) 5 Normal Left Flexion (S2) 4 Good Extension (L3) 4+ Good+ PT-OP-Q Treatments Start: 03/09/23 10:58 Freq: Status: Active Protocol: Document 04/08/23 08:04 AB (Rec: 04/08/23 12:08 AB [id number]) Therapeutic Exercises Supine Exercises knee to chest Supine Exercise Name with towel roll at groin for gapping Side bilateral Reps/Minutes 1 Comments monitored for pinching sensation at groin Alberto stretch Supine Exercise Name edge of bed Side bilateral Reps/Minutes one minute holds X3 Comments Monitored for back pain Standing Exercises bottoms up Standing Exercise Name bottoms up Side bilateral Equipment Used BUE on bolster Reps/Minutes 10 sec x10 X2 Comments monitored for pain Therapeutic Activity Therapeutic Activity sit to stand Name sit to stand with hip hinge Reps/Minutes X3 X 2 Comments Patient ed self tactile cues for hip hinge and to avoid excessive toeing out. Manual Therapy Treatment Soft Tissue Mobilization gluteal/piriformis Body Location glut/piriformis Mobilization Type Rolling,Strumming,Sustained Pressure Intensity/Depth Moderate Body Position Prone Comments monitored for pain hip flexors Body Location hip flexors at groin Mobilization Type Rolling,Strumming,Sustained Pressure Intensity/Depth Moderate Body Position Hooklying Comments Monitored for pain Manual Techniques contract relax into hip IR Type PROM into IR contract relax Body Location hip Body Position Prone Reps/Duration 1 Comments monitored for pain Muscle energy tech Type pubic shot gun and MET for right AI left PI with dowel Reps/Duration 6X 6 each Comments verbal cues for duration of hold direction of force, positioning assist for dowel Self-Care/Home Management Treatment Education Other Education Patient ed rationale of breathing from diaphragm to relax muscles. Patient ed rationale of lying hooklying with LE's elevated, knees and hips flexed 90 deg ( modified restorative pose )to relax muscles while breathing from diaphragm ( positioning during STM to hip flexors during session ) PT-OP-T Assessment and Plan Start: 03/09/23 10:58 Freq: Status: Active Protocol: Document 04/08/23 08:04 AB (Rec: 04/08/23 12:08 AB [id number]) Physical Therapy Assessment Goals pain Short Term Goal (STG) pt will be able to lift LE in/ out of bed w/o in R hip pain. STG Duration 05/14/23 Detention Goal (LTG) Pt will report no LE or back pain at the end of the day or when on his feet extended LTG Duration 06/15/23 balance Short Term Goal (STG) Pt will be able to do SLS on RLE EC for at least 30 sec STG Duration 05/14/23 Analyst Market Intelligence Goal (LTG) Pt will be able to do SLS B w/ EC for at least 15 sec LTG Duration 06/15/23 strength Short Term Goal (STG) Pt will be indep w/HEP STG Duration 05/14/23 [employer]st [employer] Goal (LTG) Pt will score 5/5 on all B LE MMT and at least 3/5 on LPM in all planes in order to show improved core and LE strength in order to create more LE stability during daily activities to dec pain LTG Duration 06/15/23 LEFS Impairment 55/80 Short Term Goal (STG) Pt will improve LEFS score to at least 62/80 to show improved functional ability. STG Duration 05/14/23 [employer]st [employer] Goal (LTG) Pt will improve LEFS score to at least 75/80 to show improved functional ability. LTG Duration 06/15/23 Assessment Summary Assessment Patient into session with right AI left PI, reports of pinching at groin with PROM hip flexion and increased stiffness into hip IR. Patient reports decreased pinching at groin and feeling looser end of session. Access code [email or web address] Physical Therapy Plan Frequency and Duration Frequency of Treatment 1-2x/wk Duration of treatment (weeks) 12 Plan of Care Start Date 03/23/23 Plan of Care End Date 06/15/23 Next Visit Focus/Plan Next Note Type Treatment Note Next Visit Plan Check use manual: hip mobs ( check if innominate elevated or leg length and possibly address innominate mobility), visceral mobilization; soft tissue to hip flexor. *Pt asked if able to do self mob or can show how support home if needed can coordinate. HEP: review exercises & add standing hip strength (squats, lunges, RDLs, sidesteps), SLS , hip hikes Possibly squat with band, glute med activation.
--- NOTE | 2023-04-14 10:02 | PT.OTN ---
Current Diagnoses Pain in right hip (04/14/23) Pain in right knee (04/14/23) Pain in left knee (04/14/23) Low back pain, unspecified (04/14/23) Muscle weakness (generalized) (04/14/23) Difficulty in walking, not elsewhere classified (04/14/23) Abnormal posture (04/14/23) Physical Therapy Treatment Note PT-OP-A Visit Information Start: 03/09/23 10:58 Freq: Status: Active Protocol: Document 04/14/23 08:23 AB (Rec: 04/14/23 09:58 AB [id number]) Out-Patient Physical Therapy Visit Information Visit Information Visit Type Treatment Note Visit Note IH PT: 09/05, total visits in the year Visit Start Time 09:00 Visit Stop Time 09:44 Visit Number 6 Number of COUNTY EXTENSION AGENT Visits 4 PT-OP-B Current Condition Start: 03/09/23 10:58 Freq: Status: Active Protocol: Document 03/23/23 09:11 [facility] (Rec: 03/23/23 10:22 [facility] [id number]) Current Condition History of Current Condition Current Complaints R hip pain (1 year ago), back pain, B knee pain History of Current Condition Pt reports he has some stomach issues and is adjusting his diet. It seems its getting better but still a problem. he has cut out wheat, and coffee . Pt reports sometimes its just when he eats, that he has pain. Since going back to work, he has inc stress and notes he always had some stomach issues in HS when stressed. 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 He has neck pain, WEBBER, thoracic pain, R hip , LB, B feet and B hands. Hip issue comes and goes. Unsure if from his activities. Has been doing stretches which helps. He notes taking out the gluten has helped w/his dietary changes. He has lost about 10 lbs in last month. It first came on when stretching (tries to at night after work ). He was getting up off the floor and felt a pop in his hip and it has never been excrutiating, but it definitely affects like he is thinking about it. He doesn't notice it much when walking, but when when lifting leg out of bed, feels it in ant hip. Gets tingling in B ring and pinky finger. Knees and feet have been better since taken out wheat for past 3 weeks. LBP is always tight and tense and feels stiff. This has been several years. Does feel like the diet is improving. He used to have to wear shoes in his house d/t barefeet would cause back, knee and hip pian and now can not wear shoes, and only feels it way later in the activity and it is less severe. Goes through phases when real stiff and sore. 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 Thoracic pain has been since he was younger (27 y.o) and had pain in chest. He hasn't felt that again but still feels hot spots in back that come up. Has had B shoulder problems. Notices abdomen bloating and has hx of diahrea. Treatment Goals Patient/Caregiver Goals dec pain and be able to do normal activities w/o inc pain PT-OP-C Subjective Start: 03/09/23 10:58 Freq: Status: Active Protocol: Document 04/14/23 08:23 AB (Rec: 04/14/23 09:58 [id number]) OP-PT Subjective Patient Comments Patient Comments Patient reports the right hip is improving. Patient reports lifting the right LE into the car is not painful, but he can still feel it. Patient reports back feels stiff and sore when he is not moving. PT-OP-D Balance Start: 03/09/23 10:58 Freq: Status: Active Protocol: Document 03/23/23 09:11 [facility] (Rec: 03/23/23 10:22 [facility] [id number]) Balance Tests Single Limb Standing Single Limb- Right 25 sec w/inc deviation Single Limb- Left >30 sec PT-OP-G Mobility & Gait Start: 03/09/23 10:58 Freq: Status: Active Protocol: Document 03/23/23 09:11 [facility] (Rec: 03/23/23 10:22 [facility] [id number]) OP Gait Assessment Comments Gait Comments stiff in upper body, lat lean; dec stance time on RLE ( slighty); LEs turned out when walking PT-OP-J Posture/Palpation/Skin Start: 03/09/23 10:58 Freq: Status: Active Protocol: Document 03/23/23 09:11 [facility] (Rec: 03/23/23 10:22 [facility] [id number]) Posture Evaluation Clement Postural Classification System Lumbar Protective Mechanism Left AP 1 Lumbar Protective Mechanism Right AP 0 Lumbar Protective Mechanism Left PA 0 Lumbar Protective Mechanism Right PA 1 PT-OP-K Range of Motion Start: 03/09/23 10:58 Freq: Status: Active Protocol: Document 03/23/23 09:11 [facility] (Rec: 03/23/23 10:22 [facility] [id number]) Hip Goniometric Range of Motion Hip Right Active Flexion w/Knee Flexed 84 Comments ant hip pain Left Active Flexion w/Knee Flexed 90 Comments ant hip pian PT-OP-M Strength Start: 03/09/23 10:58 Freq: Status: Active Protocol: Document 03/23/23 09:11 [facility] (Rec: 03/23/23 10:22 [facility] [id number]) Hip Strength Hip Manual Muscle Testing Right Flexion (L2) 3 Fair Extension (S1) 3+ Fair+ Abduction 3+ Fair+ Adduction 3 Fair External Rotation 3+ Fair+ Internal Rotation 3+ Fair+ Left Flexion (L2) 3 Fair Extension (S1) 4 Good Abduction 4 Good Adduction 3+ Fair+ External Rotation 3+ Fair+ Internal Rotation 3+ Fair+ Knee Strength Knee Manual Muscle Testing Right Flexion (S2) 4+ Good+ Extension (L3) 5 Normal Left Flexion (S2) 4 Good Extension (L3) 4+ Good+ PT-OP-Q Treatments Start: 03/09/23 10:58 Freq: Status: Active Protocol: Document 04/14/23 08:23 AB (Rec: 04/14/23 09:58 AB [id number]) Therapeutic Exercises Supine Exercises bridge Side bilateral Reps/Minutes X10 Comments Verbal cues to push into heels and decrease height of lift SLR Supine Exercise Name to assess for pain Side right Reps/Minutes X1 X 2 Comments reports decreased pain post manual therapy and hip flexor stretch w/ gappin Alberto stretch Supine Exercise Name edge of bed Side bilateral Reps/Minutes one minute holds X3 Comments Monitored for back pain Sitting Exercises squat with band Sitting Exercise Name squat Side bilateral Resistance dark blue band Reps/Minutes 2X10 Comments Verbal cues for hip hinge, to squat to a depth that does not inc pain Therapeutic Activity Therapeutic Activity supine to sit Name supine to sit Reps/Minutes 1 Comments VC to rol fully onto side then sit up sit to stand Name sit to stand with hip hinge Reps/Minutes X2 X 1 Comments Patient ed self tactile cues for hip hinge and to avoid excessive toeing out. Manual Therapy Treatment Soft Tissue Mobilization gluteal/piriformis Body Location glut/piriformis bilateral Mobilization Type Rolling,Strumming,Sustained Pressure Intensity/Depth Moderate Body Position Prone Comments monitored for pain hip flexors Body Location hip flexors at groin bilateral Mobilization Type Rolling,Strumming,Sustained Pressure Intensity/Depth Moderate Body Position Hooklying Comments Monitored for pain Manual Techniques contract relax into hip IR Type PROM into IR contract relax Body Location hip Body Position Prone Reps/Duration 1 Comments monitored for pain Muscle energy tech Type pubic shot gun and MET for right AI left PI with dowel Reps/Duration 6X 6 each Comments verbal cues for duration of hold direction of force, positioning assist for dowel Neuro Re-Education Treatment Other Activities glute med activation Details seated hip abduction with band Reps/Duration 1X one minute hold Comments dark blue band one minute hold for activation PT-OP-T Assessment and Plan Start: 03/09/23 10:58 Freq: Status: Active Protocol: Document 04/14/23 08:23 AB (Rec: 04/14/23 09:58 AB [id number]) Physical Therapy Assessment Goals pain Short Term Goal (STG) pt will be able to lift LE in/ out of bed w/o in R hip pain. STG Duration 05/14/23 Basket Turner Goal (LTG) Pt will report no LE or back pain at the end of the day or when on his feet extended LTG Duration 06/15/23 balance Short Term Goal (STG) Pt will be able to do SLS on RLE EC for at least 30 sec STG Duration 05/14/23 Basket Turner Goal (LTG) Pt will be able to do SLS B w/ EC for at least 15 sec LTG Duration 06/15/23 strength Short Term Goal (STG) Pt will be indep w/HEP STG Duration 05/14/23 Basket Turner Goal (LTG) Pt will score 5/5 on all B LE MMT and at least 3/5 on LPM in all planes in order to show improved core and LE strength in order to create more LE stability during daily activities to dec pain LTG Duration 06/15/23 LEFS Impairment 55/80 Short Term Goal (STG) Pt will improve LEFS score to at least 62/80 to show improved functional ability. STG Duration 05/14/23 Skilled Nursing Goal (LTG) Pt will improve LEFS score to at least 75/80 to show improved functional ability. LTG Duration 06/15/23 Assessment Summary Assessment right AI left PI and pain with right SLR start of session ( pain left back per patient ), supine to sit with a sit up, and increased lumbar spine flexion when buttocks reaches chair during stand to sit. Tulio was able to perform squat with band with hip hinge with reports of no increased pain. HS length and calf muscle length impacting squat mechanics. Physical Therapy Plan Frequency and Duration Frequency of Treatment 1-2x/wk Duration of treatment (weeks) 12 Plan of Care Start Date 03/23/23 Plan of Care End Date 06/15/23 Next Visit Focus/Plan Next Note Type Treatment Note Next Visit Plan Check use manual: hip mobs ( check if innominate elevated or leg length and possibly address innominate mobility), visceral mobilization; soft tissue to hip flexor. *Pt asked if able to do self mob or can show how support home if needed can coordinate. HEP: review exercises & add standing hip strength (squats, lunges, RDLs, sidesteps), SLS , hip hikes Assess calf muscle length, hamstring length progress squats as able, balance
--- NOTE | 2023-04-21 12:17 | PT.OTN ---
Current Diagnoses Pain in right hip (04/21/23) Pain in right knee (04/21/23) Pain in left knee (04/21/23) Low back pain, unspecified (04/21/23) Muscle weakness (generalized) (04/21/23) Difficulty in walking, not elsewhere classified (04/21/23) Abnormal posture (04/21/23) Physical Therapy Treatment Note PT-OP-A Visit Information Start: 03/09/23 10:58 Freq: Status: Active Protocol: Document 04/21/23 09:05 [facility] (Rec: 04/21/23 12:17 [facility] [id number]) Out-Patient Physical Therapy Visit Information Visit Information Visit Type Treatment Note Visit Start Time 09:03 Visit Stop Time 09:45 Visit Number 10/05 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 It seems its getting better but still a problem. he has cut out wheat, and coffee . Pt reports sometimes its just when he eats, that he has pain. Since going back to work, he has inc stress and notes he always had some stomach issues in HS when stressed. 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 He has neck pain, WEBBER, thoracic pain, R hip , LB, B feet and B hands. Hip issue comes and goes. Unsure if from his activities. Has been doing stretches which helps. He notes taking out the gluten has helped w/his dietary changes. He has lost about 10 lbs in last month. It first came on when stretching (tries to at night after work ). He was getting up off the floor and felt a pop in his hip and it has never been excrutiating, but it definitely affects like he is thinking about it. He doesn't notice it much when walking, but when when lifting leg out of bed, feels it in ant hip. Gets tingling in B ring and pinky finger. Knees and feet have been better since taken out wheat for past 3 weeks. LBP is always tight and tense and feels stiff. This has been several years. Does feel like the diet is improving. He used to have to wear shoes in his house d/t barefeet would cause back, knee and hip pian and now can not wear shoes, and only feels it way later in the activity and it is less severe. Goes through phases when real stiff and sore. 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 Thoracic pain has been since he was younger (27 y.o) and had pain in chest. He hasn't felt that again but still feels hot spots in back that come up. Has had B shoulder problems. Notices abdomen bloating and has hx of diahrea. Treatment Goals Patient/Caregiver Goals dec pain and be able to do normal activities w/o inc pain PT-OP-C Subjective Start: 03/09/23 10:58 Freq: Status: Active Protocol: Document 04/21/23 09:05 [facility] (Rec: 04/21/23 12:17 [facility] [id number]) OP-PT Subjective Patient Comments Patient Comments Pt reports back has been really tight. He feels like his hip is having the sensation that night. He is trying to do a combo of exercises each night. Pt has been doing sit ups, push ups, shoulder raises w/bands. Wants to get back to using pull up bar. Patient Reported Progress Improving PT-OP-D Balance Start: 03/09/23 10:58 Freq: Status: Active Protocol: Document 03/23/23 09:11 [facility] (Rec: 03/23/23 10:22 [facility] [id number]) Balance Tests Single Limb Standing Single Limb- Right 25 sec w/inc deviation Single Limb- Left >30 sec PT-OP-G Mobility & Gait Start: 03/09/23 10:58 Freq: Status: Active Protocol: Document 03/23/23 09:11 [facility] (Rec: 03/23/23 10:22 [facility] [id number]) OP Gait Assessment Comments Gait Comments stiff in upper body, lat lean; dec stance time on RLE ( slighty); LEs turned out when walking PT-OP-J Posture/Palpation/Skin Start: 03/09/23 10:58 Freq: Status: Active Protocol: Document 03/23/23 09:11 [facility] (Rec: 03/23/23 10:22 [facility] [id number]) Posture Evaluation [facility] Postural Classification System Lumbar Protective Mechanism Left AP 1 Lumbar Protective Mechanism Right AP 0 Lumbar Protective Mechanism Left PA 0 Lumbar Protective Mechanism Right PA 1 PT-OP-K Range of Motion Start: 03/09/23 10:58 Freq: Status: Active Protocol: Document 03/23/23 09:11 [facility] (Rec: 03/23/23 10:22 [facility] [id number]) Hip Goniometric Range of Motion Hip Right Active Flexion w/Knee Flexed 84 Comments ant hip pain Left Active Flexion w/Knee Flexed 90 Comments ant hip pian PT-OP-M Strength Start: 03/09/23 10:58 Freq: Status: Active Protocol: Document 03/23/23 09:11 [facility] (Rec: 03/23/23 10:22 [facility] [id number]) Hip Strength Hip Manual Muscle Testing Right Flexion (L2) 3 Fair Extension (S1) 3+ Fair+ Abduction 3+ Fair+ Adduction 3 Fair External Rotation 3+ Fair+ Internal Rotation 3+ Fair+ Left Flexion (L2) 3 Fair Extension (S1) 4 Good Abduction 4 Good Adduction 3+ Fair+ External Rotation 3+ Fair+ Internal Rotation 3+ Fair+ Knee Strength Knee Manual Muscle Testing Right Flexion (S2) 4+ Good+ Extension (L3) 5 Normal Left Flexion (S2) 4 Good Extension (L3) 4+ Good+ PT-OP-Q Treatments Start: 03/09/23 10:58 Freq: Status: Active Protocol: Document 04/21/23 09:05 [facility] (Rec: 04/21/23 12:17 [facility] [id number]) Therapeutic Exercises Supine Exercises foam roll Supine Exercise Name tspine ext over Reps/Minutes 2 min Prone Exercises plank Prone Exercise Name forearm and feet Reps/Minutes 3x20 sec; 1x max on feet then drop to knees then max Sidelying Exercises sideplank Sidelying Exercise Name forearm and knees Side bilateral Reps/Minutes 30 sec Standing Exercises lunges Side bilateral Reps/Minutes 10 Comments mirror to help w/tracking squats Standing Exercise Name 1. air 2. w/dowel on back Reps/Minutes 1. 2x10 2. 10 Manual Therapy Treatment Soft Tissue Mobilization hip flexors Body Location R Mobilization Type Sustained Pressure Intensity/Depth Moderate Comments w/AAROM hip flex Joint Mobilizations innominate Joint B flex FM; R ER FM hooklying hip Joint B inf FM PT-OP-T Assessment and Plan Start: 03/09/23 10:58 Freq: Status: Active Protocol: Document 04/21/23 09:05 [facility] (Rec: 04/21/23 12:17 [facility] [id number]) Physical Therapy Assessment Goals pain Short Term Goal (STG) pt will be able to lift LE in/ out of bed w/o in R hip pain. STG Duration 05/14/23 Retirement Plan Counselor Goal (LTG) Pt will report no LE or back pain at the end of the day or when on his feet extended LTG Duration 06/15/23 balance Short Term Goal (STG) Pt will be able to do SLS on RLE EC for at least 30 sec STG Duration 05/14/23 Retirement Plan Counselor Goal (LTG) Pt will be able to do SLS B w/ EC for at least 15 sec LTG Duration 06/15/23 strength Short Term Goal (STG) Pt will be indep w/HEP STG Duration 05/14/23 Senior Care Goal (LTG) Pt will score 5/5 on all B LE MMT and at least 3/5 on LPM in all planes in order to show improved core and LE strength in order to create more LE stability during daily activities to dec pain LTG Duration 06/15/23 LEFS Impairment 55/80 Short Term Goal (STG) Pt will improve LEFS score to at least 62/80 to show improved functional ability. STG Duration 05/14/23 Senior Care Goal (LTG) Pt will improve LEFS score to at least 75/80 to show improved functional ability. LTG Duration 06/15/23 Assessment Summary Assessment Pt does engage ES during squat at end range even not in full depth. He did well with stretnghtening exercises w/ cues and use of mirror. After manual, pt was able to go through inc squat range to greater than 90 w/o back itghtness and dec hip discomfort. Physical Therapy Plan Frequency and Duration Frequency of Treatment 1-2x/wk Duration of treatment (weeks) 12 Plan of Care Start Date 03/23/23 Plan of Care End Date 06/15/23 Next Visit Focus/Plan Next Note Type Treatment Note Next Visit Plan Check use manual: hip mobs ( check if innominate elevated or leg length and possibly address innominate mobility), visceral mobilization; soft tissue to hip flexor. *Pt asked if able to do self mob or can show how support home if needed can coordinate. HEP: review exercises & advance towards more multi muscle and dimensional exercises
--- NOTE | 2023-04-23 10:01 | PT.OTN ---
Current Diagnoses Pain in right hip (04/23/23) Pain in right knee (04/23/23) Pain in left knee (04/23/23) Low back pain, unspecified (04/23/23) Muscle weakness (generalized) (04/23/23) Difficulty in walking, not elsewhere classified (04/23/23) Abnormal posture (04/23/23) Physical Therapy Treatment Note PT-OP-A Visit Information Start: 03/09/23 10:58 Freq: Status: Active Protocol: Document 04/23/23 08:03 [facility] (Rec: 04/23/23 10:01 [facility] [id number]) Out-Patient Physical Therapy Visit Information Visit Information Visit Type Treatment Note Visit Note IH PT: 11/05, total visits in the year Visit Start Time 09:01 Visit Stop Time 09:44 Visit Number 11/05 Number of FISH FILLETER Visits 1 PT-OP-B Current Condition Start: 03/09/23 10:58 Freq: Status: Active Protocol: Document 03/23/23 09:11 [facility] (Rec: 03/23/23 10:22 [facility] [id number]) Current Condition History of Current Condition Current Complaints R hip pain (1 year ago), back pain, B knee pain History of Current Condition Pt reports he has some stomach issues and is adjusting his diet. It seems its getting better but still a problem. he has cut out wheat, and coffee . Pt reports sometimes its just when he eats, that he has pain. Since going back to work, he has inc stress and notes he always had some stomach issues in HS when stressed. 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 He has neck pain, WEBBER, thoracic pain, R hip , LB, B feet and B hands. Hip issue comes and goes. Unsure if from his activities. Has been doing stretches which helps. He notes taking out the gluten has helped w/his dietary changes. He has lost about 10 lbs in last month. It first came on when stretching (tries to at night after work ). He was getting up off the floor and felt a pop in his hip and it has never been excrutiating, but it definitely affects like he is thinking about it. He doesn't notice it much when walking, but when when lifting leg out of bed, feels it in ant hip. Gets tingling in B ring and pinky finger. Knees and feet have been better since taken out wheat for past 3 weeks. LBP is always tight and tense and feels stiff. This has been several years. Does feel like the diet is improving. He used to have to wear shoes in his house d/t barefeet would cause back, knee and hip pian and now can not wear shoes, and only feels it way later in the activity and it is less severe. Goes through phases when real stiff and sore. 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 Thoracic pain has been since he was younger (27 y.o) and had pain in chest. He hasn't felt that again but still feels hot spots in back that come up. Has had B shoulder problems. Notices abdomen bloating and has hx of diahrea. Treatment Goals Patient/Caregiver Goals dec pain and be able to do normal activities w/o inc pain PT-OP-C Subjective Start: 03/09/23 10:58 Freq: Status: Active Protocol: Document 04/23/23 08:03 [facility] (Rec: 04/23/23 10:01 [id number]) OP-PT Subjective Patient Comments Patient Comments Patient reports increased knee pain post side planks, also noted back knee felt weird with the lunges. Patient reports feeling a little discomfort with SLR right at the groin start of session. Patient reports his bed is too soft for the hip flexor stretch. PT-OP-D Balance Start: 03/09/23 10:58 Freq: Status: Active Protocol: Document 03/23/23 09:11 [facility] (Rec: 03/23/23 10:22 [facility] [id number]) Balance Tests Single Limb Standing Single Limb- Right 25 sec w/inc deviation Single Limb- Left >30 sec PT-OP-G Mobility & Gait Start: 03/09/23 10:58 Freq: Status: Active Protocol: Document 03/23/23 09:11 [facility] (Rec: 03/23/23 10:22 [facility] [id number]) OP Gait Assessment Comments Gait Comments stiff in upper body, lat lean; dec stance time on RLE ( slighty); LEs turned out when walking PT-OP-J Posture/Palpation/Skin Start: 03/09/23 10:58 Freq: Status: Active Protocol: Document 03/23/23 09:11 [facility] (Rec: 03/23/23 10:22 [facility] [id number]) Posture Evaluation [facility] Postural Classification System Lumbar Protective Mechanism Left AP 1 Lumbar Protective Mechanism Right AP 0 Lumbar Protective Mechanism Left PA 0 Lumbar Protective Mechanism Right PA 1 PT-OP-K Range of Motion Start: 03/09/23 10:58 Freq: Status: Active Protocol: Document 03/23/23 09:11 [facility] (Rec: 03/23/23 10:22 [facility] [id number]) Hip Goniometric Range of Motion Hip Right Active Flexion w/Knee Flexed 84 Comments ant hip pain Left Active Flexion w/Knee Flexed 90 Comments ant hip pian PT-OP-M Strength Start: 03/09/23 10:58 Freq: Status: Active Protocol: Document 03/23/23 09:11 [facility] (Rec: 03/23/23 10:22 [facility] [id number]) Hip Strength Hip Manual Muscle Testing Right Flexion (L2) 3 Fair Extension (S1) 3+ Fair+ Abduction 3+ Fair+ Adduction 3 Fair External Rotation 3+ Fair+ Internal Rotation 3+ Fair+ Left Flexion (L2) 3 Fair Extension (S1) 4 Good Abduction 4 Good Adduction 3+ Fair+ External Rotation 3+ Fair+ Internal Rotation 3+ Fair+ Knee Strength Knee Manual Muscle Testing Right Flexion (S2) 4+ Good+ Extension (L3) 5 Normal Left Flexion (S2) 4 Good Extension (L3) 4+ Good+ PT-OP-Q Treatments Start: 03/09/23 10:58 Freq: Status: Active Protocol: Document 04/23/23 08:03 [facility] (Rec: 04/23/23 10:01 [facility] [id number]) Therapeutic Exercises Supine Exercises Alberto stretch Supine Exercise Name edge of bed Side bilateral Reps/Minutes one minute holds X2 right X 1 left Comments Monitored for back pain Prone Exercises plank Prone Exercise Name forearm and knees Reps/Minutes 1x20 sec; Sidelying Exercises sideplank Sidelying Exercise Name forearm and knees and feet Side bilateral Reps/Minutes X 2 each side, on knees 30 sec on feet X 15 sec second trial Standing Exercises standing glute med isometric Standing Exercise Name glute med isometric at wall Side bilateral Reps/Minutes 1 one minute hold Comments visual cues lunges Side bilateral Reps/Minutes X10 post training Comments VC and visual cues for a less quad dom pattern, VC to decrease step length hip flexor stretch Standing Exercise Name on stair Side bilateral Reps/Minutes 60 seconds Comments Verbal cues Other Exercises 1/2 kneeling hip flexor stretch Side bilateral Reps/Minutes one one minute hold Comments Verbal cues Manual Therapy Treatment Soft Tissue Mobilization gluteal/piriformis Body Location glut/piriformis right Mobilization Type Rolling,Strumming,Sustained Pressure Intensity/Depth Moderate Body Position Prone Comments monitored for pain hip flexors Body Location R back Body Location paraspinals Mobilization Type Rolling Intensity/Depth Moderate Body Position Prone Self-Care/Home Management Treatment Activities Self-Care/Home Management Activities glut med act progressed to standing glute med isometric, side plank progressed, hip flexor stretch modified to standing. PT-OP-T Assessment and Plan Start: 03/09/23 10:58 Freq: Status: Active Protocol: Document 04/23/23 08:03 [facility] (Rec: 04/23/23 10:01 [facility] [id number]) Physical Therapy Assessment Goals pain Short Term Goal (STG) pt will be able to lift LE in/ out of bed w/o in R hip pain. 04/23/2023 Patient reports this is improving, but pain is still present. STG Duration 05/14/23 [place]set Ripper Goal (LTG) Pt will report no LE or back pain at the end of the day or when on his feet extended LTG Duration 06/15/23 balance Short Term Goal (STG) Pt will be able to do SLS on RLE EC for at least 30 sec STG Duration 05/14/23 [place] Ripper Goal (LTG) Pt will be able to do SLS B w/ EC for at least 15 sec LTG Duration 06/15/23 strength Short Term Goal (STG) Pt will be indep w/HEP STG Duration 05/14/23 Care Home Goal (LTG) Pt will score 5/5 on all B LE MMT and at least 3/5 on LPM in all planes in order to show improved core and LE strength in order to create more LE stability during daily activities to dec pain LTG Duration 06/15/23 LEFS Impairment 55/80 Short Term Goal (STG) Pt will improve LEFS score to at least 62/80 to show improved functional ability. STG Duration 05/14/23 Gusset Ripper Goal (LTG) Pt will improve LEFS score to at least 75/80 to show improved functional ability. LTG Duration 06/15/23 Assessment Summary Assessment Patient able to perform lunges with a less quad dominant pattern, reporting this feels better. Tulio also was able to progress to side plank for 15 sec ( decreased time ) which decreased discomfort on lateral knees per patient. AI PI WNL start of session. HEP reviewed to address knee discomfort concernce and progressed this session. Physical Therapy Plan Frequency and Duration Frequency of Treatment 1-2x/wk Duration of treatment (weeks) 12 Plan of Care Start Date 03/23/23 Plan of Care End Date 06/15/23 Next Visit Focus/Plan Next Note Type Treatment Note Next Visit Plan Check use manual: hip mobs ( check if innominate elevated or leg length and possibly address innominate mobility), visceral mobilization; soft tissue to hip flexor. *Pt asked if able to do self mob or can show how support home if needed can coordinate. HEP: review exercises & advance towards more multi muscle and dimensional exercises, progress squats, add lift/ single leg lift, push up plus on wall, eliminate hip flexion with gapping if pinching is no longer present with knee to chest right LE.
--- NOTE | 2023-04-28 09:51 | PT.OTN ---
Current Diagnoses Pain in right hip (04/28/23) Pain in right knee (04/28/23) Pain in left knee (04/28/23) Low back pain, unspecified (04/28/23) Muscle weakness (generalized) (04/28/23) Difficulty in walking, not elsewhere classified (04/28/23) Abnormal posture (04/28/23) Physical Therapy Treatment Note PT-OP-A Visit Information Start: 03/09/23 10:58 Freq: Status: Active Protocol: Document 04/28/23 08:47 [facility] (Rec: 04/28/23 09:50 [facility] [id number]) Out-Patient Physical Therapy Visit Information Visit Information Visit Type Treatment Note Visit Start Time 09:09 Visit Stop Time 09:47 Visit Number 12/06 Number of DIRECTOR FIXED INCOME Visits 0 PT-OP-B Current Condition Start: 03/09/23 10:58 Freq: Status: Active Protocol: Document 03/23/23 09:11 [facility] (Rec: 03/23/23 10:22 [facility] [id number]) Current Condition History of Current Condition Current Complaints R hip pain (1 year ago), back pain, B knee pain History of Current Condition Pt reports he has some stomach issues and is adjusting his diet. It seems its getting better but still a problem. he has cut out wheat, and coffee . Pt reports sometimes its just when he eats, that he has pain. Since going back to work, he has inc stress and notes he always had some stomach issues in HS when stressed. 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 He has neck pain, WEBBER, thoracic pain, R hip , LB, B feet and B hands. Hip issue comes and goes. Unsure if from his activities. Has been doing stretches which helps. He notes taking out the gluten has helped w/his dietary changes. He has lost about 10 lbs in last month. It first came on when stretching (tries to at night after work ). He was getting up off the floor and felt a pop in his hip and it has never been excrutiating, but it definitely affects like he is thinking about it. He doesn't notice it much when walking, but when when lifting leg out of bed, feels it in ant hip. Gets tingling in B ring and pinky finger. Knees and feet have been better since taken out wheat for past 3 weeks. LBP is always tight and tense and feels stiff. This has been several years. Does feel like the diet is improving. He used to have to wear shoes in his house d/t barefeet would cause back, knee and hip pian and now can not wear shoes, and only feels it way later in the activity and it is less severe. Goes through phases when real stiff and sore. 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 Thoracic pain has been since he was younger (27 y.o) and had pain in chest. He hasn't felt that again but still feels hot spots in back that come up. Has had B shoulder problems. Notices abdomen bloating and has hx of diahrea. Treatment Goals Patient/Caregiver Goals dec pain and be able to do normal activities w/o inc pain PT-OP-C Subjective Start: 03/09/23 10:58 Freq: Status: Active Protocol: Document 04/28/23 08:47 [facility] (Rec: 04/28/23 09:50 [facility] [id number]) OP-PT Subjective Patient Comments Patient Comments Pt reports back has been really stiff. It doesn't take long to be sitting before it gets really tight. Overall, his hip is performing better but he still gets that pain. PT-OP-D Balance Start: 03/09/23 10:58 Freq: Status: Active Protocol: Document 03/23/23 09:11 [facility] (Rec: 03/23/23 10:22 [facility] [id number]) Balance Tests Single Limb Standing Single Limb- Right 25 sec w/inc deviation Single Limb- Left >30 sec PT-OP-G Mobility & Gait Start: 03/09/23 10:58 Freq: Status: Active Protocol: Document 03/23/23 09:11 [facility] (Rec: 03/23/23 10:22 [facility] [id number]) OP Gait Assessment Comments Gait Comments stiff in upper body, lat lean; dec stance time on RLE ( slighty); LEs turned out when walking PT-OP-J Posture/Palpation/Skin Start: 03/09/23 10:58 Freq: Status: Active Protocol: Document 03/23/23 09:11 [facility] (Rec: 03/23/23 10:22 [facility] [id number]) Posture Evaluation [facility] Postural Classification System Lumbar Protective Mechanism Left AP 1 Lumbar Protective Mechanism Right AP 0 Lumbar Protective Mechanism Left PA 0 Lumbar Protective Mechanism Right PA 1 PT-OP-K Range of Motion Start: 03/09/23 10:58 Freq: Status: Active Protocol: Document 03/23/23 09:11 [facility] (Rec: 03/23/23 10:22 [facility] [id number]) Hip Goniometric Range of Motion Hip Right Active Flexion w/Knee Flexed 84 Comments ant hip pain Left Active Flexion w/Knee Flexed 90 Comments ant hip pian PT-OP-M Strength Start: 03/09/23 10:58 Freq: Status: Active Protocol: Document 03/23/23 09:11 [facility] (Rec: 03/23/23 10:22 [facility] [id number]) Hip Strength Hip Manual Muscle Testing Right Flexion (L2) 3 Fair Extension (S1) 3+ Fair+ Abduction 3+ Fair+ Adduction 3 Fair External Rotation 3+ Fair+ Internal Rotation 3+ Fair+ Left Flexion (L2) 3 Fair Extension (S1) 4 Good Abduction 4 Good Adduction 3+ Fair+ External Rotation 3+ Fair+ Internal Rotation 3+ Fair+ Knee Strength Knee Manual Muscle Testing Right Flexion (S2) 4+ Good+ Extension (L3) 5 Normal Left Flexion (S2) 4 Good Extension (L3) 4+ Good+ PT-OP-Q Treatments Start: 03/09/23 10:58 Freq: Status: Active Protocol: Document 04/28/23 08:47 [facility] (Rec: 04/28/23 09:50 [facility] [id number]) Therapeutic Exercises Prone Exercises plank Prone Exercise Name forearm and knees Reps/Minutes [id number] Comments cues for back position Sidelying Exercises sideplank Sidelying Exercise Name forearm and feet Side bilateral Reps/Minutes 15 sec Standing Exercises bottoms up Standing Exercise Name bottoms up Side bilateral Equipment Used BUE on bolster Reps/Minutes 10 sec x10 Comments monitored for pain Other Exercises thread the needle Side bilateral Reps/Minutes 30 sec x3 cat/cow Reps/Minutes 10 Comments cues to sit back to inc stretch Manual Therapy Treatment Soft Tissue Mobilization back Body Location paraspinals & QL Mobilization Type Rolling Intensity/Depth Moderate Body Position Sidelying Comments w/post dep Joint Mobilizations ribs Comments rib 7 and rib 11 R into external torsion FM lumbar Comments 1. distraction L4-5; L5-S1 w/ post dep 2. L transverse L3-5 FM w/ant elevation PT-OP-T Assessment and Plan Start: 03/09/23 10:58 Freq: Status: Active Protocol: Document 04/28/23 08:47 [facility] (Rec: 04/28/23 09:50 [facility] [id number]) Physical Therapy Assessment Goals pain Short Term Goal (STG) pt will be able to lift LE in/ out of bed w/o in R hip pain. 04/23/2023 Patient reports this is improving, but pain is still present. STG Duration 05/14/23 Financial Counselor Goal (LTG) Pt will report no LE or back pain at the end of the day or when on his feet extended LTG Duration 06/15/23 balance Short Term Goal (STG) Pt will be able to do SLS on RLE EC for at least 30 sec STG Duration 05/14/23 Financial Counselor Goal (LTG) Pt will be able to do SLS B w/ EC for at least 15 sec LTG Duration 06/15/23 strength Short Term Goal (STG) Pt will be indep w/HEP STG Duration 05/14/23 Financial Counselor Goal (LTG) Pt will score 5/5 on all B LE MMT and at least 3/5 on LPM in all planes in order to show improved core and LE strength in order to create more LE stability during daily activities to dec pain LTG Duration 06/15/23 LEFS Impairment 55/80 Short Term Goal (STG) Pt will improve LEFS score to at least 62/80 to show improved functional ability. STG Duration 05/14/23 Financial Counselor Goal (LTG) Pt will improve LEFS score to at least 75/80 to show improved functional ability. LTG Duration 06/15/23 Assessment Summary Assessment Pt had improved ability to SB B w/dec pain to R but still tightness to L after manual. Pt had imrpoved R rotation from about 40% to 70% after manual also. Cues still needed for planks. given exercises for backs tightness Physical Therapy Plan Frequency and Duration Frequency of Treatment 1-2x/wk Duration of treatment (weeks) 12 Plan of Care Start Date 03/23/23 Plan of Care End Date 06/15/23 Next Visit Focus/Plan Next Note Type Treatment Note Next Visit Plan cont to work on pt rotational capacity & SB capacity and work on lumbar mobility
--- NOTE | 2023-04-30 09:00 | PT.OTN ---
Current Diagnoses Pain in right hip (04/30/23) Pain in right knee (04/30/23) Pain in left knee (04/30/23) Low back pain, unspecified (04/30/23) Muscle weakness (generalized) (04/30/23) Difficulty in walking, not elsewhere classified (04/30/23) Abnormal posture (04/30/23) Physical Therapy Treatment Note PT-OP-A Visit Information Start: 03/09/23 10:58 Freq: Status: Active Protocol: Document 04/30/23 08:18 [facility] (Rec: 04/30/23 09:02 SP [id number]) Out-Patient Physical Therapy Visit Information Visit Information Visit Type Treatment Note Visit Start Time 08:18 Visit Stop Time 09:00 Visit Number 01/05 Number of SALES CLOSER Visits 1 PT-OP-B Current Condition Start: 03/09/23 10:58 Freq: Status: Active Protocol: Document 03/23/23 09:11 [facility] (Rec: 03/23/23 10:22 [facility] [id number]) Current Condition History of Current Condition Current Complaints R hip pain (1 year ago), back pain, B knee pain History of Current Condition Pt reports he has some stomach issues and is adjusting his diet. It seems its getting better but still a problem. he has cut out wheat, and coffee . Pt reports sometimes its just when he eats, that he has pain. Since going back to work, he has inc stress and notes he always had some stomach issues in HS when stressed. 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 He has neck pain, WEBBER, thoracic pain, R hip , LB, B feet and B hands. Hip issue comes and goes. Unsure if from his activities. Has been doing stretches which helps. He notes taking out the gluten has helped w/his dietary changes. He has lost about 10 lbs in last month. It first came on when stretching (tries to at night after work ). He was getting up off the floor and felt a pop in his hip and it has never been excrutiating, but it definitely affects like he is thinking about it. He doesn't notice it much when walking, but when when lifting leg out of bed, feels it in ant hip. Gets tingling in B ring and pinky finger. Knees and feet have been better since taken out wheat for past 3 weeks. LBP is always tight and tense and feels stiff. This has been several years. Does feel like the diet is improving. He used to have to wear shoes in his house d/t barefeet would cause back, knee and hip pian and now can not wear shoes, and only feels it way later in the activity and it is less severe. Goes through phases when real stiff and sore. 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 Thoracic pain has been since he was younger (27 y.o) and had pain in chest. He hasn't felt that again but still feels hot spots in back that come up. Has had B shoulder problems. Notices abdomen bloating and has hx of diahrea. Treatment Goals Patient/Caregiver Goals dec pain and be able to do normal activities w/o inc pain PT-OP-C Subjective Start: 03/09/23 10:58 Freq: Status: Active Protocol: Document 04/30/23 08:18 [facility] (Rec: 04/30/23 09:02 SP [id number]) OP-PT Subjective Patient Comments Patient Comments Pt reports stiff still in L LB . He incorporating self exercises plus PT ex: push ups 3-4 sets of 15 reps, lunges/ squats 3 days/week, planks, glut med lift at wall, tricep dips on chair, resistance bands with UEs. Trying me mindful ease into it. PT-OP-D Balance Start: 03/09/23 10:58 Freq: Status: Active Protocol: Document 03/23/23 09:11 [facility] (Rec: 03/23/23 10:22 [facility] [id number]) Balance Tests Single Limb Standing Single Limb- Right 25 sec w/inc deviation Single Limb- Left >30 sec PT-OP-G Mobility & Gait Start: 03/09/23 10:58 Freq: Status: Active Protocol: Document 03/23/23 09:11 [facility] (Rec: 03/23/23 10:22 [facility] [id number]) OP Gait Assessment Comments Gait Comments stiff in upper body, lat lean; dec stance time on RLE ( slighty); LEs turned out when walking PT-OP-J Posture/Palpation/Skin Start: 03/09/23 10:58 Freq: Status: Active Protocol: Document 03/23/23 09:11 [facility] (Rec: 03/23/23 10:22 [facility] [id number]) Posture Evaluation [facility] Postural Classification System Lumbar Protective Mechanism Left AP 1 Lumbar Protective Mechanism Right AP 0 Lumbar Protective Mechanism Left PA 0 Lumbar Protective Mechanism Right PA 1 PT-OP-K Range of Motion Start: 03/09/23 10:58 Freq: Status: Active Protocol: Document 03/23/23 09:11 [facility] (Rec: 03/23/23 10:22 [facility] [id number]) Hip Goniometric Range of Motion Hip Right Active Flexion w/Knee Flexed 84 Comments ant hip pain Left Active Flexion w/Knee Flexed 90 Comments ant hip pian PT-OP-M Strength Start: 03/09/23 10:58 Freq: Status: Active Protocol: Document 03/23/23 09:11 [facility] (Rec: 03/23/23 10:22 [facility] [id number]) Hip Strength Hip Manual Muscle Testing Right Flexion (L2) 3 Fair Extension (S1) 3+ Fair+ Abduction 3+ Fair+ Adduction 3 Fair External Rotation 3+ Fair+ Internal Rotation 3+ Fair+ Left Flexion (L2) 3 Fair Extension (S1) 4 Good Abduction 4 Good Adduction 3+ Fair+ External Rotation 3+ Fair+ Internal Rotation 3+ Fair+ Knee Strength Knee Manual Muscle Testing Right Flexion (S2) 4+ Good+ Extension (L3) 5 Normal Left Flexion (S2) 4 Good Extension (L3) 4+ Good+ PT-OP-Q Treatments Start: 03/09/23 10:58 Freq: Status: Active Protocol: Document 04/30/23 08:18 [facility] (Rec: 04/30/23 09:02 SP [id number]) Therapeutic Exercises Prone Exercises plank Prone Exercise Name forearm and feet Reps/Minutes 40, 22 sec Comments cues for back position: TKE and glut fac support, decrease shakiness Sidelying Exercises sideplank Sidelying Exercise Name forearm and feet Side bilateral Reps/Minutes R 20 sec, L 18 sec Standing Exercises triangle/reverse triangle Standing Exercise Name trialed in PT Comments reverse on R rot discomfort L T8, R T 6- better post foam roller bottoms up Standing Exercise Name bottoms up Side bilateral Equipment Used 8>4 step Reps/Minutes 10 sec x10 Comments monitored for pain, good feedback stretch Other Exercises TS ext over foam roller Other Exercise Name trialed in PT: ext and rolling Reps/Minutes 2 min total Comments good feedback response thread the needle Side bilateral Reps/Minutes 30 sec x3 Comments good feedback stretch and increased rotational ROM Manual Therapy Treatment Soft Tissue Mobilization back Body Location R paraspinals & QL Mobilization Type Rolling Intensity/Depth Moderate Body Position Sidelying Comments w/post dep Joint Mobilizations ribs Comments rib 7 and rib 11 R rotation PT-OP-T Assessment and Plan Start: 03/09/23 10:58 Freq: Status: Active Protocol: Document 04/30/23 08:18 [facility] (Rec: 04/30/23 09:02 SP [id number]) Physical Therapy Assessment Goals pain Short Term Goal (STG) pt will be able to lift LE in/ out of bed w/o in R hip pain. 04/23/2023 Patient reports this is improving, but pain is still present. STG Duration 05/14/23 Guide Domestic Tour Goal (LTG) Pt will report no LE or back pain at the end of the day or when on his feet extended LTG Duration 06/15/23 balance Short Term Goal (STG) Pt will be able to do SLS on RLE EC for at least 30 sec STG Duration 05/14/23 Senior Care Goal (LTG) Pt will be able to do SLS B w/ EC for at least 15 sec LTG Duration 06/15/23 strength Short Term Goal (STG) Pt will be indep w/HEP STG Duration 05/14/23 Guide Domestic Tour Goal (LTG) Pt will score 5/5 on all B LE MMT and at least 3/5 on LPM in all planes in order to show improved core and LE strength in order to create more LE stability during daily activities to dec pain LTG Duration 06/15/23 LEFS Impairment 55/80 Short Term Goal (STG) Pt will improve LEFS score to at least 62/80 to show improved functional ability. STG Duration 05/14/23 Senior Care Goal (LTG) Pt will improve LEFS score to at least 75/80 to show improved functional ability. LTG Duration 06/15/23 Assessment Summary Assessment Pt reports increased rotational mobility and no pain post manual and incorporation TS ext and rotation triangle/reverse triangle this tx. Discussed be sure utilize lumbar support seated in car and couch. Was able to increase time planks today, still little shakiness but good understanding TKE and glut fac but less time hold due weakness endurance. Physical Therapy Plan Frequency and Duration Frequency of Treatment 1-2x/wk Duration of treatment (weeks) 12 Plan of Care Start Date 03/23/23 Plan of Care End Date 06/15/23 Therapeutic Interventions Therapeutic Interventions Balance Training,Gait Training ,Home Exercise Program,Joint Mobilizations,Manual Therapy, Neuromuscular Re-education, Patient/Caregiver Education, Self-Care/Home Management,Soft Tissue Mobilization,Taping, Therapeutic Activities, Therapeutic Exercises Modalities Cold Pack/Ice Massage,Electric Stimulation,Infrared Therapy, Traction- Mechanical, Ultrasound Next Visit Focus/Plan Next Note Type Treatment Note Next Visit Plan cont to work on pt rotational capacity & SB capacity and work on lumbar mobility
--- NOTE | 2023-05-05 09:47 | PT.OTN ---
Current Diagnoses Pain in right hip (05/05/23) Pain in right knee (05/05/23) Pain in left knee (05/05/23) Low back pain, unspecified (05/05/23) Muscle weakness (generalized) (05/05/23) Difficulty in walking, not elsewhere classified (05/05/23) Abnormal posture (05/05/23) Physical Therapy Treatment Note PT-OP-A Visit Information Start: 03/09/23 10:58 Freq: Status: Active Protocol: Document 05/05/23 08:56 [facility] (Rec: 05/05/23 09:47 [facility] [id number]) Out-Patient Physical Therapy Visit Information Visit Information Visit Type Progress Note Visit Start Time 09:03 Visit Stop Time 09:43 Visit Number 02/05 Number of LITIGATION ASSISTANT Visits 0 PT-OP-B Current Condition Start: 03/09/23 10:58 Freq: Status: Active Protocol: Document 03/23/23 09:11 [facility] (Rec: 03/23/23 10:22 [facility] [id number]) Current Condition History of Current Condition Current Complaints R hip pain (1 year ago), back pain, B knee pain History of Current Condition Pt reports he has some stomach issues and is adjusting his diet. It seems its getting better but still a problem. he has cut out wheat, and coffee . Pt reports sometimes its just when he eats, that he has pain. Since going back to work, he has inc stress and notes he always had some stomach issues in HS when stressed. 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 He has neck pain, WEBBER, thoracic pain, R hip , LB, B feet and B hands. Hip issue comes and goes. Unsure if from his activities. Has been doing stretches which helps. He notes taking out the gluten has helped w/his dietary changes. He has lost about 10 lbs in last month. It first came on when stretching (tries to at night after work ). He was getting up off the floor and felt a pop in his hip and it has never been excrutiating, but it definitely affects like he is thinking about it. He doesn't notice it much when walking, but when when lifting leg out of bed, feels it in ant hip. Gets tingling in B ring and pinky finger. Knees and feet have been better since taken out wheat for past 3 weeks. LBP is always tight and tense and feels stiff. This has been several years. Does feel like the diet is improving. He used to have to wear shoes in his house d/t barefeet would cause back, knee and hip pian and now can not wear shoes, and only feels it way later in the activity and it is less severe. Goes through phases when real stiff and sore. 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 Thoracic pain has been since he was younger (27 y.o) and had pain in chest. He hasn't felt that again but still feels hot spots in back that come up. Has had B shoulder problems. Notices abdomen bloating and has hx of diahrea. Treatment Goals Patient/Caregiver Goals dec pain and be able to do normal activities w/o inc pain PT-OP-C Subjective Start: 03/09/23 10:58 Freq: Status: Active Protocol: Document 05/05/23 08:56 [facility] (Rec: 05/05/23 09:47 [facility] [id number]) OP-PT Subjective Patient Comments Patient Comments Pt reports is trying to get in every other day w/strength PT-OP-D Balance Start: 03/09/23 10:58 Freq: Status: Active Protocol: Document 03/23/23 09:11 [facility] (Rec: 03/23/23 10:22 [facility] [id number]) Balance Tests Single Limb Standing Single Limb- Right 25 sec w/inc deviation Single Limb- Left >30 sec PT-OP-G Mobility & Gait Start: 03/09/23 10:58 Freq: Status: Active Protocol: Document 03/23/23 09:11 [facility] (Rec: 03/23/23 10:22 [facility] [id number]) OP Gait Assessment Comments Gait Comments stiff in upper body, lat lean; dec stance time on RLE ( slighty); LEs turned out when walking PT-OP-J Posture/Palpation/Skin Start: 03/09/23 10:58 Freq: Status: Active Protocol: Document 05/05/23 08:56 [facility] (Rec: 05/05/23 09:47 [facility] [id number]) Posture Evaluation [facility] Postural Classification System Elbow Flexion Test 2 Lumbar Protective Mechanism Left AP 1 Lumbar Protective Mechanism Right AP 1 Lumbar Protective Mechanism Left PA 1 Lumbar Protective Mechanism Right PA 1 PT-OP-K Range of Motion Start: 03/09/23 10:58 Freq: Status: Active Protocol: Document 03/23/23 09:11 [facility] (Rec: 03/23/23 10:22 [facility] [id number]) Hip Goniometric Range of Motion Hip Right Active Flexion w/Knee Flexed 84 Comments ant hip pain Left Active Flexion w/Knee Flexed 90 Comments ant hip pian PT-OP-M Strength Start: 03/09/23 10:58 Freq: Status: Active Protocol: Document 05/05/23 08:56 [facility] (Rec: 05/05/23 09:47 [facility] [id number]) Hip Strength Hip Manual Muscle Testing Right Flexion (L2) 3+ Fair+ Extension (S1) 4 Good Abduction 4 Good Adduction 3+ Fair+ External Rotation 4+ Good+ Internal Rotation 4 Good Left Flexion (L2) 3+ Fair+ Extension (S1) 4 Good Abduction 4+ Good+ Adduction 4 Good External Rotation 4+ Good+ Internal Rotation 4 Good Knee Strength Knee Manual Muscle Testing Right Flexion (S2) 5 Normal Extension (L3) 5 Normal Left Flexion (S2) 4+ Good+ Extension (L3) 4+ Good+ PT-OP-Q Treatments Start: 03/09/23 10:58 Freq: Status: Active Protocol: Document 05/05/23 08:56 [facility] (Rec: 05/05/23 09:47 [facility] [id number]) Therapeutic Exercises Sidelying Exercises open book Side bilateral Reps/Minutes 10 ea Standing Exercises triangle/reverse triangle Standing Exercise Name trialed in PT Comments pain so stopped Other Exercises isometrics Other Exercise Name MMT LEs & LPM, EFT Side bilateral Reps/Minutes 10 min thread the needle Comments stopped d/t pain Manual Therapy Treatment Joint Mobilizations ribs Comments R rib 9 into internal torsion FM L rib 7, 9, 10 SB FM hip Comments IR FM in flex, abd position w/ leg on bolster -manual faciliattion at end range PT-OP-T Assessment and Plan Start: 03/09/23 10:58 Freq: Status: Active Protocol: Document 05/05/23 08:56 [facility] (Rec: 05/05/23 09:47 [facility] [id number]) Physical Therapy Assessment Goals pain Short Term Goal (STG) pt will be able to lift LE in/ out of bed w/o in R hip pain. 04/23/2023 Patient reports this is improving, but pain is still present. 05/05-still notes pain with lat w/flex lift-less pain STG Duration 05/14/23 Intermediate Goal (LTG) Pt will report no LE or back pain at the end of the day or when on his feet extended 05/05-back sore all the time; hip improving LTG Duration 06/15/23 balance Short Term Goal (STG) Pt will be able to do SLS on RLE EO for at least 30 sec STG Duration achieved Intermediate Goal (LTG) Pt will be able to do SLS B w/ EC for at least 15 sec 05/05-12 sec L; 8 sec LTG Duration 06/15/23 strength Short Term Goal (STG) Pt will be indep w/HEP STG Duration acheived advancing as able Osteopathic Neurologist Goal (LTG) Pt will score 5/5 on all B LE MMT and at least 3/5 on LPM in all planes in order to show improved core and LE strength in order to create more LE stability during daily activities to dec pain 05/05-improved LTG Duration 06/15/23 LEFS Impairment 55/80 Short Term Goal (STG) Pt will improve LEFS score to at least 62/80 to show improved functional ability. 05/05-43/80 STG Duration 05/14/23 Osteopathic Neurologist Goal (LTG) Pt will improve LEFS score to at least 75/80 to show improved functional ability. LTG Duration 06/15/23 Assessment Summary Assessment Pt is making excellent progress with PT and noting improved quality of life and nnoting less pain in R hip but sitll pain but at lower level . LBP is still present and he feels tight when spending too much time in one position at a time. Cont PT to work on mobility, strength and pain relief. Physical Therapy Plan Frequency and Duration Frequency of Treatment 1-2x/wk Duration of treatment (weeks) 12 Plan of Care Start Date 03/23/23 Plan of Care End Date 06/15/23 Therapeutic Interventions Therapeutic Interventions Balance Training,Gait Training ,Home Exercise Program,Joint Mobilizations,Manual Therapy, Neuromuscular Re-education, Patient/Caregiver Education, Self-Care/Home Management,Soft Tissue Mobilization,Taping, Therapeutic Activities, Therapeutic Exercises Modalities Cold Pack/Ice Massage,Electric Stimulation,Infrared Therapy, Traction- Mechanical, Ultrasound Next Visit Focus/Plan Next Note Type Treatment Note Next Visit Plan cont to work on pt rotational capacity & SB capacity and work on lumbar mobility
--- NOTE | 2023-05-12 09:49 | PT.OTN ---
Current Diagnoses Pain in right hip (05/12/23) Pain in right knee (05/12/23) Pain in left knee (05/12/23) Low back pain, unspecified (05/12/23) Muscle weakness (generalized) (05/12/23) Difficulty in walking, not elsewhere classified (05/12/23) Abnormal posture (05/12/23) Physical Therapy Treatment Note PT-OP-A Visit Information Start: 03/09/23 10:58 Freq: Status: Active Protocol: Document 05/12/23 09:03 [facility] (Rec: 05/12/23 09:50 SP [id number]) Out-Patient Physical Therapy Visit Information Visit Information Visit Type Treatment Note Visit Start Time 09:03 Visit Stop Time 09:49 Visit Number 40 Number of FACILITY MANAGER HISTOLOGY Visits 1 PT-OP-B Current Condition Start: 03/09/23 10:58 Freq: Status: Active Protocol: Document 03/23/23 09:11 [facility] (Rec: 03/23/23 10:22 [facility] [id number]) Current Condition History of Current Condition Current Complaints R hip pain (1 year ago), back pain, B knee pain History of Current Condition Pt reports he has some stomach issues and is adjusting his diet. It seems its getting better but still a problem. he has cut out wheat, and coffee . Pt reports sometimes its just when he eats, that he has pain. Since going back to work, he has inc stress and notes he always had some stomach issues in HS when stressed. 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 He has neck pain, WEBBER, thoracic pain, R hip , LB, B feet and B hands. Hip issue comes and goes. Unsure if from his activities. Has been doing stretches which helps. He notes taking out the gluten has helped w/his dietary changes. He has lost about 10 lbs in last month. It first came on when stretching (tries to at night after work ). He was getting up off the floor and felt a pop in his hip and it has never been excrutiating, but it definitely affects like he is thinking about it. He doesn't notice it much when walking, but when when lifting leg out of bed, feels it in ant hip. Gets tingling in B ring and pinky finger. Knees and feet have been better since taken out wheat for past 3 weeks. LBP is always tight and tense and feels stiff. This has been several years. Does feel like the diet is improving. He used to have to wear shoes in his house d/t barefeet would cause back, knee and hip pian and now can not wear shoes, and only feels it way later in the activity and it is less severe. Goes through phases when real stiff and sore. 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 Thoracic pain has been since he was younger (27 y.o) and had pain in chest. He hasn't felt that again but still feels hot spots in back that come up. Has had B shoulder problems. Notices abdomen bloating and has hx of diahrea. Treatment Goals Patient/Caregiver Goals dec pain and be able to do normal activities w/o inc pain PT-OP-C Subjective Start: 03/09/23 10:58 Freq: Status: Active Protocol: Document 05/12/23 09:03 [facility] (Rec: 05/12/23 09:50 [facility] [id number]) OP-PT Subjective Patient Comments Patient Comments Pt reports back still sore and stiff when sit to long, but still string of weakness /c irritation but not sharp pain sensation anterior R hip eg seated and lift R leg and move out to side like lifting motion as step over something and Bilateral anterior hips hot bubble and pinch feeling when wt shift fwd to stand. PT-OP-D Balance Start: 03/09/23 10:58 Freq: Status: Active Protocol: Document 03/23/23 09:11 [facility] (Rec: 03/23/23 10:22 [facility] [id number]) Balance Tests Single Limb Standing Single Limb- Right 25 sec w/inc deviation Single Limb- Left >30 sec PT-OP-G Mobility & Gait Start: 03/09/23 10:58 Freq: Status: Active Protocol: Document 03/23/23 09:11 [facility] (Rec: 03/23/23 10:22 [facility] [id number]) OP Gait Assessment Comments Gait Comments stiff in upper body, lat lean; dec stance time on RLE ( slighty); LEs turned out when walking PT-OP-J Posture/Palpation/Skin Start: 03/09/23 10:58 Freq: Status: Active Protocol: Document 05/05/23 08:56 [facility] (Rec: 05/05/23 09:47 [facility] [id number]) Posture Evaluation [facility] Postural Classification System Elbow Flexion Test 2 Lumbar Protective Mechanism Left AP 1 Lumbar Protective Mechanism Right AP 1 Lumbar Protective Mechanism Left PA 1 Lumbar Protective Mechanism Right PA 1 PT-OP-K Range of Motion Start: 03/09/23 10:58 Freq: Status: Active Protocol: Document 03/23/23 09:11 [facility] (Rec: 03/23/23 10:22 [facility] [id number]) Hip Goniometric Range of Motion Hip Right Active Flexion w/Knee Flexed 84 Comments ant hip pain Left Active Flexion w/Knee Flexed 90 Comments ant hip pian PT-OP-M Strength Start: 03/09/23 10:58 Freq: Status: Active Protocol: Document 05/05/23 08:56 [facility] (Rec: 05/05/23 09:47 [facility] [id number]) Hip Strength Hip Manual Muscle Testing Right Flexion (L2) 3+ Fair+ Extension (S1) 4 Good Abduction 4 Good Adduction 3+ Fair+ External Rotation 4+ Good+ Internal Rotation 4 Good Left Flexion (L2) 3+ Fair+ Extension (S1) 4 Good Abduction 4+ Good+ Adduction 4 Good External Rotation 4+ Good+ Internal Rotation 4 Good Knee Strength Knee Manual Muscle Testing Right Flexion (S2) 5 Normal Extension (L3) 5 Normal Left Flexion (S2) 4+ Good+ Extension (L3) 4+ Good+ PT-OP-Q Treatments Start: 03/09/23 10:58 Freq: Status: Active Protocol: Document 05/12/23 09:03 [facility] (Rec: 05/12/23 09:50 [facility] [id number]) Therapeutic Exercises Supine Exercises LTR Supine Exercise Name post Reps/Minutes x5 reps 3 SH Comments good response to bug Supine Exercise Name trialed in PT Comments Silvio Bustamante Thomas stretch Supine Exercise Name edge of bed Side bilateral Reps/Minutes one minute holds Comments painfree /c manual TFL Sidelying Exercises open book Side bilateral Reps/Minutes 10 ea Comments ed not need over forward TS rotation/HADD, more for open HABD Standing Exercises triangle/reverse triangle Reps/Minutes x5 Comments DC both, due to LB light strain tension standing glute med isometric Standing Exercise Name glute med isometric at wall Side bilateral Reps/Minutes 1 one minute hold Comments visual cues Manual Therapy Treatment Joint Mobilizations hip Grade II Body Position side/hook Reps/Duration strap use Comments -isometric abd position w/leg on bolster femoral medial glide-manual facilitation at end range -piriformis position- inferior glide into AAROM hip IR- good distraction gentle hip stretch feels like a good magnet resistance- next tx show how can perform self strap anchored to stationary table/bed. PT-OP-T Assessment and Plan Start: 03/09/23 10:58 Freq: Status: Active Protocol: Document 05/12/23 09:03 [facility] (Rec: 05/12/23 09:50 SP [id number]) Physical Therapy Assessment Goals pain Short Term Goal (STG) pt will be able to lift LE in/ out of bed w/o in R hip pain. 04/23/2023 Patient reports this is improving, but pain is still present. 05/05-still notes pain with lat w/flex lift-less pain STG Duration 05/14/23 Venereal Disease Control Head Goal (LTG) Pt will report no LE or back pain at the end of the day or when on his feet extended 05/05-back sore all the time; hip improving LTG Duration 06/15/23 balance Short Term Goal (STG) Pt will be able to do SLS on RLE EO for at least 30 sec STG Duration achieved Venereal Disease Control Head Goal (LTG) Pt will be able to do SLS B w/ EC for at least 15 sec 05/05-12 sec L; 8 sec LTG Duration 06/15/23 strength Short Term Goal (STG) Pt will be indep w/HEP STG Duration acheived advancing as able [facility] Goal (LTG) Pt will score 5/5 on all B LE MMT and at least 3/5 on LPM in all planes in order to show improved core and LE strength in order to create more LE stability during daily activities to dec pain 05/05-improved LTG Duration 06/15/23 LEFS Impairment 55/80 Short Term Goal (STG) Pt will improve LEFS score to at least 62/80 to show improved functional ability. 05/05-43/80 STG Duration 05/14/23 Venereal Disease Control Head Goal (LTG) Pt will improve LEFS score to at least 75/80 to show improved functional ability. LTG Duration 06/15/23 Assessment Summary Assessment Pt responded well to manual and decreased hip discomfort. Challenged bug, instructed only or LE /c modify range >45 deg- not for HEP but retry next tx. Noted shakiness at upper/lower trunk and uncertain if irritated R LB, pt response description not clear. Good response to glut med isometric, recommended continue as HEP. WIll progress hip hinge activity and manual needed and strengthen to support ROM and activities still limited. Physical Therapy Plan Frequency and Duration Frequency of Treatment 1-2x/wk Duration of treatment (weeks) 12 Plan of Care Start Date 03/23/23 Plan of Care End Date 06/15/23 Therapeutic Interventions Therapeutic Interventions Balance Training,Gait Training ,Home Exercise Program,Joint Mobilizations,Manual Therapy, Neuromuscular Re-education, Patient/Caregiver Education, Self-Care/Home Management,Soft Tissue Mobilization,Taping, Therapeutic Activities, Therapeutic Exercises Modalities Cold Pack/Ice Massage,Electric Stimulation,Infrared Therapy, Traction- Mechanical, Ultrasound Next Visit Focus/Plan Next Note Type Treatment Note Next Visit Plan Recheck bug form/TA support and LTR if ok for HEP. POC: cont to work on pt rotational capacity & SB capacity and work on lumbar mobility
--- NOTE | 2023-05-19 11:29 | PT.OTN ---
Current Diagnoses Pain in right hip (05/19/23) Pain in right knee (05/19/23) Pain in left knee (05/19/23) Low back pain, unspecified (05/19/23) Muscle weakness (generalized) (05/19/23) Difficulty in walking, not elsewhere classified (05/19/23) Abnormal posture (05/19/23) Physical Therapy Treatment Note PT-OP-A Visit Information Start: 03/09/23 10:58 Freq: Status: Active Protocol: Document 05/19/23 09:04 [facility] (Rec: 05/19/23 11:28 [facility] [id number]) Out-Patient Physical Therapy Visit Information Visit Information Visit Type Treatment Note Visit Start Time 09:06 Visit Stop Time 09:45 Visit Number 03/07 Number of FOOD SERVICE DIRECTOR Visits 0 PT-OP-B Current Condition Start: 03/09/23 10:58 Freq: Status: Active Protocol: Document 03/23/23 09:11 [facility] (Rec: 03/23/23 10:22 [facility] [id number]) Current Condition History of Current Condition Current Complaints R hip pain (1 year ago), back pain, B knee pain History of Current Condition Pt reports he has some stomach issues and is adjusting his diet. It seems its getting better but still a problem. he has cut out wheat, and coffee . Pt reports sometimes its just when he eats, that he has pain. Since going back to work, he has inc stress and notes he always had some stomach issues in HS when stressed. 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 He has neck pain, WEBBER, thoracic pain, R hip , LB, B feet and B hands. Hip issue comes and goes. Unsure if from his activities. Has been doing stretches which helps. He notes taking out the gluten has helped w/his dietary changes. He has lost about 10 lbs in last month. It first came on when stretching (tries to at night after work ). He was getting up off the floor and felt a pop in his hip and it has never been excrutiating, but it definitely affects like he is thinking about it. He doesn't notice it much when walking, but when when lifting leg out of bed, feels it in ant hip. Gets tingling in B ring and pinky finger. Knees and feet have been better since taken out wheat for past 3 weeks. LBP is always tight and tense and feels stiff. This has been several years. Does feel like the diet is improving. He used to have to wear shoes in his house d/t barefeet would cause back, knee and hip pian and now can not wear shoes, and only feels it way later in the activity and it is less severe. Goes through phases when real stiff and sore. 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 Thoracic pain has been since he was younger (27 y.o) and had pain in chest. He hasn't felt that again but still feels hot spots in back that come up. Has had B shoulder problems. Notices abdomen bloating and has hx of diahrea. Treatment Goals Patient/Caregiver Goals dec pain and be able to do normal activities w/o inc pain PT-OP-C Subjective Start: 03/09/23 10:58 Freq: Status: Active Protocol: Document 05/19/23 09:04 [facility] (Rec: 05/19/23 11:28 [facility] [id number]) OP-PT Subjective Patient Comments Patient Comments REports a little discouraged as progress is not as much recently. Still a little uncomfortable w/flex/abd of hip. REports back discomfort and tightness has gotten worse . PT-OP-D Balance Start: 03/09/23 10:58 Freq: Status: Active Protocol: Document 03/23/23 09:11 [facility] (Rec: 03/23/23 10:22 [facility] [id number]) Balance Tests Single Limb Standing Single Limb- Right 25 sec w/inc deviation Single Limb- Left >30 sec PT-OP-G Mobility & Gait Start: 03/09/23 10:58 Freq: Status: Active Protocol: Document 03/23/23 09:11 [facility] (Rec: 03/23/23 10:22 [facility] [id number]) OP Gait Assessment Comments Gait Comments stiff in upper body, lat lean; dec stance time on RLE ( slighty); LEs turned out when walking PT-OP-J Posture/Palpation/Skin Start: 03/09/23 10:58 Freq: Status: Active Protocol: Document 05/05/23 08:56 [facility] (Rec: 05/05/23 09:47 [facility] [id number]) Posture Evaluation [facility] Postural Classification System Elbow Flexion Test 2 Lumbar Protective Mechanism Left AP 1 Lumbar Protective Mechanism Right AP 1 Lumbar Protective Mechanism Left PA 1 Lumbar Protective Mechanism Right PA 1 PT-OP-K Range of Motion Start: 03/09/23 10:58 Freq: Status: Active Protocol: Document 03/23/23 09:11 [facility] (Rec: 03/23/23 10:22 [facility] [id number]) Hip Goniometric Range of Motion Hip Right Active Flexion w/Knee Flexed 84 Comments ant hip pain Left Active Flexion w/Knee Flexed 90 Comments ant hip pian PT-OP-M Strength Start: 03/09/23 10:58 Freq: Status: Active Protocol: Document 05/05/23 08:56 [facility] (Rec: 05/05/23 09:47 [facility] [id number]) Hip Strength Hip Manual Muscle Testing Right Flexion (L2) 3+ Fair+ Extension (S1) 4 Good Abduction 4 Good Adduction 3+ Fair+ External Rotation 4+ Good+ Internal Rotation 4 Good Left Flexion (L2) 3+ Fair+ Extension (S1) 4 Good Abduction 4+ Good+ Adduction 4 Good External Rotation 4+ Good+ Internal Rotation 4 Good Knee Strength Knee Manual Muscle Testing Right Flexion (S2) 5 Normal Extension (L3) 5 Normal Left Flexion (S2) 4+ Good+ Extension (L3) 4+ Good+ PT-OP-Q Treatments Start: 03/09/23 10:58 Freq: Status: Active Protocol: Document 05/19/23 09:04 [facility] (Rec: 05/19/23 11:28 [facility] [id number]) Therapeutic Exercises Prone Exercises plank Prone Exercise Name forearm and feet Side bilateral Reps/Minutes 20sec x5 Comments cues for back position lumbar and thoracic Sidelying Exercises sideplank Sidelying Exercise Name forearm and feet Side bilateral Reps/Minutes 30 sec ea Comments good from Standing Exercises lunges Side bilateral Reps/Minutes X8 min cues squats Standing Exercise Name air Reps/Minutes 2x10 Comments cues for slight turn down man of feet only and inc depth Other Exercises forrest pose Reps/Minutes 1 min Manual Therapy Treatment Soft Tissue Mobilization back Body Location R paraspinals & QL Mobilization Type Rolling Intensity/Depth Moderate Body Position Prone Joint Mobilizations sacrum Comments caudal L and UPA L FM lumbar Comments PA L5 and 4 prone FM and upglide L L5 FM innominate Comments L>R abd of ischial tubs; L PA in seated FM PT-OP-T Assessment and Plan Start: 03/09/23 10:58 Freq: Status: Active Protocol: Document 05/19/23 09:04 [facility] (Rec: 05/19/23 11:28 [facility] [id number]) Physical Therapy Assessment Goals pain Short Term Goal (STG) pt will be able to lift LE in/ out of bed w/o in R hip pain. 04/23/2023 Patient reports this is improving, but pain is still present. 05/05-still notes pain with lat w/flex lift-less pain STG Duration 05/14/23 Sales Floor Team Member Goal (LTG) Pt will report no LE or back pain at the end of the day or when on his feet extended 05/05-back sore all the time; hip improving LTG Duration 06/15/23 balance Short Term Goal (STG) Pt will be able to do SLS on RLE EO for at least 30 sec STG Duration achieved Sales Floor Team Member Goal (LTG) Pt will be able to do SLS B w/ EC for at least 15 sec 05/05-12 sec L; 8 sec LTG Duration 06/15/23 strength Short Term Goal (STG) Pt will be indep w/HEP STG Duration acheived advancing as able Sales Floor Team Member Goal (LTG) Pt will score 5/5 on all B LE MMT and at least 3/5 on LPM in all planes in order to show improved core and LE strength in order to create more LE stability during daily activities to dec pain 05/05-improved LTG Duration 06/15/23 LEFS Impairment 55/80 Short Term Goal (STG) Pt will improve LEFS score to at least 62/80 to show improved functional ability. 05/05-43/80 STG Duration 05/14/23 Sales Floor Team Member Goal (LTG) Pt will improve LEFS score to at least 75/80 to show improved functional ability. LTG Duration 06/15/23 Assessment Summary Assessment Pt had improved abilityt to squat when allowed to be in mild ER of LEs and also improved w/manual treatment. He does cont to have significant spinal stiffness. Improved form w/exercises overall but cues still needed w/fwd plank. Physical Therapy Plan Frequency and Duration Frequency of Treatment 1-2x/wk Duration of treatment (weeks) 12 Plan of Care Start Date 03/23/23 Plan of Care End Date 04/02/24 Next Visit Focus/Plan Next Note Type Treatment Note Next Visit Plan recheck bug; cont to work on lumbar mobility
--- NOTE | 2023-05-26 09:46 | PT.OTN ---
Current Diagnoses Pain in right hip (05/26/23) Pain in right knee (05/26/23) Pain in left knee (05/26/23) Low back pain, unspecified (05/26/23) Muscle weakness (generalized) (05/26/23) Difficulty in walking, not elsewhere classified (05/26/23) Abnormal posture (05/26/23) Physical Therapy Treatment Note PT-OP-A Visit Information Start: 03/09/23 10:58 Freq: Status: Active Protocol: Document 05/26/23 09:01 [facility] (Rec: 05/26/23 09:48 [facility] [id number]) Out-Patient Physical Therapy Visit Information Visit Information Visit Type Treatment Note Visit Start Time 09:01 Visit Stop Time 09:46 Visit Number Number of GIS MANAGER Visits 1 PT-OP-B Current Condition Start: 03/09/23 10:58 Freq: Status: Active Protocol: Document 03/23/23 09:11 [facility] (Rec: 03/23/23 10:22 [facility] [id number]) Current Condition History of Current Condition Current Complaints R hip pain (1 year ago), back pain, B knee pain History of Current Condition Pt reports he has some stomach issues and is adjusting his diet. It seems its getting better but still a problem. he has cut out wheat, and coffee . Pt reports sometimes its just when he eats, that he has pain. Since going back to work, he has inc stress and notes he always had some stomach issues in HS when stressed. 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 He has neck pain, WEBBER, thoracic pain, R hip , LB, B feet and B hands. Hip issue comes and goes. Unsure if from his activities. Has been doing stretches which helps. He notes taking out the gluten has helped w/his dietary changes. He has lost about 10 lbs in last month. It first came on when stretching (tries to at night after work ). He was getting up off the floor and felt a pop in his hip and it has never been excrutiating, but it definitely affects like he is thinking about it. He doesn't notice it much when walking, but when when lifting leg out of bed, feels it in ant hip. Gets tingling in B ring and pinky finger. Knees and feet have been better since taken out wheat for past 3 weeks. LBP is always tight and tense and feels stiff. This has been several years. Does feel like the diet is improving. He used to have to wear shoes in his house d/t barefeet would cause back, knee and hip pian and now can not wear shoes, and only feels it way later in the activity and it is less severe. Goes through phases when real stiff and sore. 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 Thoracic pain has been since he was younger (27 y.o) and had pain in chest. He hasn't felt that again but still feels hot spots in back that come up. Has had B shoulder problems. Notices abdomen bloating and has hx of diahrea. 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 He tweaked his back picking up a ladder. Wondered his mechanics and if new back positiong use of muscles last tx, little more vulnerable not strong factor. REports sore over lower lumbar murali when sits to long. PT-OP-D Balance Start: 03/09/23 10:58 Freq: Status: Active Protocol: Document 03/23/23 09:11 [facility] (Rec: 03/23/23 10:22 [facility] [id number]) Balance Tests Single Limb Standing Single Limb- Right 25 sec w/inc deviation Single Limb- Left >30 sec PT-OP-G Mobility & Gait Start: 03/09/23 10:58 Freq: Status: Active Protocol: Document 03/23/23 09:11 [facility] (Rec: 03/23/23 10:22 [facility] [id number]) OP Gait Assessment Comments Gait Comments stiff in upper body, lat lean; dec stance time on RLE ( slighty); LEs turned out when walking PT-OP-J Posture/Palpation/Skin Start: 03/09/23 10:58 Freq: Status: Active Protocol: Document 05/05/23 08:56 [facility] (Rec: 05/05/23 09:47 [facility] [id number]) Posture Evaluation [facility] Postural Classification System Elbow Flexion Test 2 Lumbar Protective Mechanism Left AP 1 Lumbar Protective Mechanism Right AP 1 Lumbar Protective Mechanism Left PA 1 Lumbar Protective Mechanism Right PA 1 PT-OP-K Range of Motion Start: 03/09/23 10:58 Freq: Status: Active Protocol: Document 03/23/23 09:11 [facility] (Rec: 03/23/23 10:22 [facility] [id number]) Hip Goniometric Range of Motion Hip Right Active Flexion w/Knee Flexed 84 Comments ant hip pain Left Active Flexion w/Knee Flexed 90 Comments ant hip pian PT-OP-M Strength Start: 03/09/23 10:58 Freq: Status: Active Protocol: Document 05/05/23 08:56 [facility] (Rec: 05/05/23 09:47 [facility] [id number]) Hip Strength Hip Manual Muscle Testing Right Flexion (L2) 3+ Fair+ Extension (S1) 4 Good Abduction 4 Good Adduction 3+ Fair+ External Rotation 4+ Good+ Internal Rotation 4 Good Left Flexion (L2) 3+ Fair+ Extension (S1) 4 Good Abduction 4+ Good+ Adduction 4 Good External Rotation 4+ Good+ Internal Rotation 4 Good Knee Strength Knee Manual Muscle Testing Right Flexion (S2) 5 Normal Extension (L3) 5 Normal Left Flexion (S2) 4+ Good+ Extension (L3) 4+ Good+ PT-OP-Q Treatments Start: 03/09/23 10:58 Freq: Status: Active Protocol: Document 05/26/23 09:01 [facility] (Rec: 05/26/23 09:48 SP [id number]) Therapeutic Exercises Prone Exercises plank Prone Exercise Name forearm and feet Side bilateral Reps/Minutes 30, 20 sec Comments cues for back position lumbar and thoracic Sidelying Exercises sideplank Sidelying Exercise Name forearm and feet Side bilateral Reps/Minutes R 19, 22 sec 20, 25 L Comments good from Standing Exercises lunges Side bilateral Resistance tends smaller stance for post knee comfort Reps/Minutes 2X8 Comments min cues, head/increase GRISEL squats Standing Exercise Name air Equipment Used front mirror Reps/Minutes 2x10 Comments cues for slight collar turner of feet only and inc depth, TA/ slight PPT Manual Therapy Treatment Soft Tissue Mobilization gluteal/piriformis Body Location glut/piriformis right>L Mobilization Type Rolling,Strumming,Sustained Pressure Intensity/Depth Moderate Body Position Prone Comments MWM piriformis hip IR/Er back Body Location R paraspinals & QL Mobilization Type Rolling,Sustained Pressure, Other Intensity/Depth Moderate Body Position Sidelying Comments manual and hip hike MWM QL PT-OP-T Assessment and Plan Start: 03/09/23 10:58 Freq: Status: Active Protocol: Document 05/26/23 09:01 [facility] (Rec: 05/26/23 09:48 SP [id number]) Physical Therapy Assessment Goals pain Short Term Goal (STG) pt will be able to lift LE in/ out of bed w/o in R hip pain. 04/23/2023 Patient reports this is improving, but pain is still present. 05/05-still notes pain with lat w/flex lift-less pain STG Duration 05/14/23 Programming Instructor Goal (LTG) Pt will report no LE or back pain at the end of the day or when on his feet extended 05/05-back sore all the time; hip improving LTG Duration 06/15/23 balance Short Term Goal (STG) Pt will be able to do SLS on RLE EO for at least 30 sec STG Duration achieved Programming Instructor Goal (LTG) Pt will be able to do SLS B w/ EC for at least 15 sec 05/05-12 sec L; 8 sec LTG Duration 06/15/23 strength Short Term Goal (STG) Pt will be indep w/HEP STG Duration acheived advancing as able [facility] Goal (LTG) Pt will score 5/5 on all B LE MMT and at least 3/5 on LPM in all planes in order to show improved core and LE strength in order to create more LE stability during daily activities to dec pain 05/05-improved LTG Duration 06/15/23 LEFS Impairment 55/80 Short Term Goal (STG) Pt will improve LEFS score to at least 62/80 to show improved functional ability. 05/05-43/80 STG Duration 05/14/23 Programming Instructor Goal (LTG) Pt will improve LEFS score to at least 75/80 to show improved functional ability. LTG Duration 06/15/23 Assessment Summary Assessment Pt decreased back and gluteal tension post manual. Improved pelvic and LE corrections post cues with abililty to hold plank longer, more solid. 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 Physical Therapy Plan Frequency and Duration Frequency of Treatment 1-2x/wk Duration of treatment (weeks) 12 Plan of Care Start Date 03/23/23 Plan of Care End Date 06/15/23 Therapeutic Interventions Therapeutic Interventions Balance Training,Gait Training ,Home Exercise Program,Joint Mobilizations,Manual Therapy, Neuromuscular Re-education, Patient/Caregiver Education, Self-Care/Home Management,Soft Tissue Mobilization,Taping, Therapeutic Activities, Therapeutic Exercises Modalities Cold Pack/Ice Massage,Electric Stimulation,Infrared Therapy, Traction- Mechanical, Ultrasound Next Visit Focus/Plan Next Note Type Treatment Note Next Visit Plan recheck bug, TA squats, planks; cont to work on lumbar mobility
--- NOTE | 2023-06-02 09:50 | PT.OTN ---
Current Diagnoses Pain in right hip (06/02/23) Pain in right knee (06/02/23) Pain in left knee (06/02/23) Low back pain, unspecified (06/02/23) Muscle weakness (generalized) (06/02/23) Difficulty in walking, not elsewhere classified (06/02/23) Abnormal posture (06/02/23) Physical Therapy Treatment Note PT-OP-A Visit Information Start: 03/09/23 10:58 Freq: Status: Active Protocol: Document 06/02/23 09:06 [facility] (Rec: 06/02/23 09:50 [facility] [id number]) Out-Patient Physical Therapy Visit Information Visit Information Visit Type Progress Note Visit Start Time 09:06 Visit Stop Time 09:45 Visit Number Number of METAL WEATHER STRIPPER Visits 0 PT-OP-B Current Condition Start: 03/09/23 10:58 Freq: Status: Active Protocol: Document 03/23/23 09:11 [facility] (Rec: 03/23/23 10:22 [facility] [id number]) Current Condition History of Current Condition Current Complaints R hip pain (1 year ago), back pain, B knee pain History of Current Condition Pt reports he has some stomach issues and is adjusting his diet. It seems its getting better but still a problem. he has cut out wheat, and coffee . Pt reports sometimes its just when he eats, that he has pain. Since going back to work, he has inc stress and notes he always had some stomach issues in HS when stressed. 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 He has neck pain, WEBBER, thoracic pain, R hip , LB, B feet and B hands. Hip issue comes and goes. Unsure if from his activities. Has been doing stretches which helps. He notes taking out the gluten has helped w/his dietary changes. He has lost about 10 lbs in last month. It first came on when stretching (tries to at night after work ). He was getting up off the floor and felt a pop in his hip and it has never been excrutiating, but it definitely affects like he is thinking about it. He doesn't notice it much when walking, but when when lifting leg out of bed, feels it in ant hip. Gets tingling in B ring and pinky finger. Knees and feet have been better since taken out wheat for past 3 weeks. LBP is always tight and tense and feels stiff. This has been several years. Does feel like the diet is improving. He used to have to wear shoes in his house d/t barefeet would cause back, knee and hip pian and now can not wear shoes, and only feels it way later in the activity and it is less severe. Goes through phases when real stiff and sore. 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 Thoracic pain has been since he was younger (27 y.o) and had pain in chest. He hasn't felt that again but still feels hot spots in back that come up. Has had B shoulder problems. Notices abdomen bloating and has hx of diahrea. Treatment Goals Patient/Caregiver Goals dec pain and be able to do normal activities w/o inc pain PT-OP-C Subjective Start: 03/09/23 10:58 Freq: Status: Active Protocol: Document 06/02/23 09:06 [facility] (Rec: 06/02/23 09:50 [facility] [id number]) OP-PT Subjective Patient Comments Patient Comments Pt reports feeling better and feels like overall body feeling good. HE was sturggling this weekend and was sore and got back into routine and overall feel better. Still some stuff in hips that bother him. DId notice he was able to bring leg up higher when stretching yesterday. Back still seems to get stiff but getting better. Isn't lasting as long or as severe Patient Reported Progress Improving PT-OP-D Balance Start: 03/09/23 10:58 Freq: Status: Active Protocol: Document 03/23/23 09:11 [facility] (Rec: 03/23/23 10:22 [facility] [id number]) Balance Tests Single Limb Standing Single Limb- Right 25 sec w/inc deviation Single Limb- Left >30 sec PT-OP-G Mobility & Gait Start: 03/09/23 10:58 Freq: Status: Active Protocol: Document 03/23/23 09:11 [facility] (Rec: 03/23/23 10:22 [facility] [id number]) OP Gait Assessment Comments Gait Comments stiff in upper body, lat lean; dec stance time on RLE ( slighty); LEs turned out when walking PT-OP-J Posture/Palpation/Skin Start: 03/09/23 10:58 Freq: Status: Active Protocol: Document 06/02/23 09:06 [facility] (Rec: 06/02/23 09:50 [facility] [id number]) Posture Evaluation [facility] Postural Classification System Elbow Flexion Test 2 Lumbar Protective Mechanism Left AP 3 Lumbar Protective Mechanism Right AP 3 Lumbar Protective Mechanism Left PA 3 Lumbar Protective Mechanism Right PA 3 PT-OP-K Range of Motion Start: 03/09/23 10:58 Freq: Status: Active Protocol: Document 03/23/23 09:11 [facility] (Rec: 03/23/23 10:22 [facility] [id number]) Hip Goniometric Range of Motion Hip Right Active Flexion w/Knee Flexed 84 Comments ant hip pain Left Active Flexion w/Knee Flexed 90 Comments ant hip pian PT-OP-M Strength Start: 03/09/23 10:58 Freq: Status: Active Protocol: Document 06/02/23 09:06 [facility] (Rec: 06/02/23 09:50 [facility] [id number]) Hip Strength Hip Manual Muscle Testing Right Flexion (L2) 4- Good- Extension (S1) 5 Normal Abduction 5 Normal Adduction 4 Good External Rotation 5 Normal Internal Rotation 5 Normal Left Flexion (L2) 5 Normal Extension (S1) 5 Normal Abduction 5 Normal Adduction 5 Normal External Rotation 5 Normal Internal Rotation 5 Normal Knee Strength Knee Manual Muscle Testing Right Flexion (S2) 5 Normal Extension (L3) 5 Normal Left Flexion (S2) 5 Normal Extension (L3) 5 Normal PT-OP-Q Treatments Start: 03/09/23 10:58 Freq: Status: Active Protocol: Document 06/02/23 09:06 [facility] (Rec: 06/02/23 09:50 [facility] [id number]) Therapeutic Exercises Other Exercises isometrics Other Exercise Name MMT LEs & LPM, EFT Side bilateral Reps/Minutes 7 min Manual Therapy Treatment Joint Mobilizations lumbar Comments L3-5 transverse L FM w/ant elevation innominate Comments R abd FM hip Comments R abd FM Neuro Re-Education Treatment Other Activities PNF Details R Reps/Duration 10 min Comments ant eelvation facilitaion through LE traction progressed to sustained hold to COI w/ dissociation of hip and pelvis ea Self-Care/Home Management Treatment Education Other Education 13 min:d iscussed progress w/ pt and discussed ribcage lack of mobility and how that likely affects his pain. Discussed dec stretching/ strengthening time so getting more sleep. edu on importance of sleep for healing PT-OP-T Assessment and Plan Start: 03/09/23 10:58 Freq: Status: Active Protocol: Document 06/02/23 09:06 [facility] (Rec: 06/02/23 09:50 [facility] [id number]) Physical Therapy Assessment Goals pain Short Term Goal (STG) pt will be able to lift LE in/ out of bed w/o in R hip pain. 04/23/2023 Patient reports this is improving, but pain is still present. 05/05-still notes pain with lat w/flex lift-less pain 06/01-less pain STG Duration 07/02 Longterm Goal (LTG) Pt will report no LE or back pain at the end of the day or when on his feet extended 05/05-back sore all the time; hip improving 06/02/23-less severe and less long duration LTG Duration 08/04 balance Short Term Goal (STG) Pt will be able to do SLS on RLE EO for at least 30 sec STG Duration achieved Business Objects Report Developer Goal (LTG) Pt will be able to do SLS B w/ EC for at least 15 sec 05/05-12 sec L; 8 sec 06/01-no change LTG Duration 08/04 strength Short Term Goal (STG) Pt will be indep w/HEP STG Duration acheived advancing as able Business Objects Report Developer Goal (LTG) Pt will score 5/5 on all B LE MMT and at least 3/5 on LPM in all planes in order to show improved core and LE strength in order to create more LE stability during daily activities to dec pain 05/05-improved 06/01-improve LTG Duration 08/04 LEFS Impairment 55/80 Short Term Goal (STG) Pt will improve LEFS score to at least 62/80 to show improved functional ability. 05/05-43/80 06/01-60/80 STG Duration 07/02 Business Objects Report Developer Goal (LTG) Pt will improve LEFS score to at least 75/80 to show improved functional ability. LTG Duration 08/05/23 Assessment Summary Assessment Pt is showing improved mobility and noting greater ease w/activity during his day . He is able to move hip easier w/less discomofrt and cont to improve w/balance and LE/core strength COnt PT to dec pain further and improve functional ability Physical Therapy Plan Frequency and Duration Frequency of Treatment 1x/Week Duration of treatment (weeks) 8 Plan of Care Start Date 06/02/23 Plan of Care End Date 08/05/23 Therapeutic Interventions Therapeutic Interventions Balance Training,Gait Training ,Home Exercise Program,Joint Mobilizations,Manual Therapy, Neuromuscular Re-education, Patient/Caregiver Education, Self-Care/Home Management,Soft Tissue Mobilization,Taping, Therapeutic Activities, Therapeutic Exercises Modalities Cold Pack/Ice Massage,Electric Stimulation,Infrared Therapy, Traction- Mechanical, Ultrasound Next Visit Focus/Plan Next Note Type Treatment Note Next Visit Plan look at exercises and dec to 10 min stretching max and no more than 5 min strength; recheck bug, TA squats, planks; cont to work on lumbar mobility
--- NOTE | 2023-06-02 09:50 | PT.OPPOC ---
Physical, Occupational & Speech Therapy At [facility] Current Diagnoses Pain in right hip (06/02/23) Pain in right knee (06/02/23) Pain in left knee (06/02/23) Low back pain, unspecified (06/02/23) Muscle weakness (generalized) (06/02/23) Difficulty in walking, not elsewhere classified (06/02/23) Abnormal posture (06/02/23) Visit Care Team Role Provider Type Mina Van MD Family Provider Physician Primary Care Provider Specialty: Family Practice Address: [address] [place] [address], [address], [address] Email: [email or web address] PA-C Attending Provider Advanced Gas Appliance Installer Referring Provider Specialty: Medical Address: [address] [place] [address], [address], [address] Email: [email or web address] Plan Of Care PT-OP-T Assessment and Plan Start: 03/09/23 10:58 Freq: Status: Active Protocol: Document 06/02/23 09:06 [facility] (Rec: 06/02/23 09:50 [facility] [id number]) Physical Therapy Assessment Goals pain Short Term Goal (STG) pt will be able to lift LE in/ out of bed w/o in R hip pain. 04/23/2023 Patient reports this is improving, but pain is still present. 05/05-still notes pain with lat w/flex lift-less pain 06/01-less pain STG Duration 07/02 Assisted Goal (LTG) Pt will report no LE or back pain at the end of the day or when on his feet extended 05/05-back sore all the time; hip improving 06/02/23-less severe and less long duration LTG Duration 08/04 balance Short Term Goal (STG) Pt will be able to do SLS on RLE EO for at least 30 sec STG Duration achieved Pressure Test Operator Goal (LTG) Pt will be able to do SLS B w/ EC for at least 15 sec 05/05-12 sec L; 8 sec 06/01-no change LTG Duration 08/04 strength Short Term Goal (STG) Pt will be indep w/HEP STG Duration acheived advancing as able Pressure Test Operator Goal (LTG) Pt will score 5/5 on all B LE MMT and at least 3/5 on LPM in all planes in order to show improved core and LE strength in order to create more LE stability during daily activities to dec pain 05/05-improved 06/01-improve LTG Duration 08/04 LEFS Impairment 55/80 Short Term Goal (STG) Pt will improve LEFS score to at least 62/80 to show improved functional ability. 05/05-43/06/01-60/80 STG Duration 07/02 Assisted Goal (LTG) Pt will improve LEFS score to at least 75/80 to show improved functional ability. LTG Duration 08/05/23 Assessment Summary Assessment Pt is showing improved mobility and noting greater ease w/activity during his day . He is able to move hip easier w/less discomofrt and cont to improve w/balance and LE/core strength COnt PT to dec pain further and improve functional ability Physical Therapy Plan Frequency and Duration Frequency of Treatment 1x/Week Duration of treatment (weeks) 8 Plan of Care Start Date 06/02/23 Plan of Care End Date 08/05/23 Therapeutic Interventions Therapeutic Interventions Balance Training,Gait Training ,Home Exercise Program,Joint Mobilizations,Manual Therapy, Neuromuscular Re-education, Patient/Caregiver Education, Self-Care/Home Management,Soft Tissue Mobilization,Taping, Therapeutic Activities, Therapeutic Exercises Modalities Cold Pack/Ice Massage,Electric Stimulation,Infrared Therapy, Traction- Mechanical, Ultrasound Next Visit Focus/Plan Next Note Type Treatment Note Next Visit Plan look at exercises and dec to 10 min stretching max and no more than 5 min strength; recheck bug, TA squats, planks; cont to work on lumbar mobility Plan of Care Dates Plan of Care Start Date 06/02/23 Plan of Care End Date 08/05/23 Electronically Signed by: Gifty Vernon, PT 06/02/23 0314 If you are in agreement with this Plan of Care, please return a signed and dated copy. I have reviewed this Plan of Care and certify that the skilled therapy services above are required to meet the patient?s needs. Physician Signature Date Printed Name and Credentials Clinical Instructor Signature Printed Name and Credentials
--- NOTE | 2023-07-06 11:57 | PT.OTN ---
Current Diagnoses Pain in right hip (07/06/23) Pain in right knee (07/06/23) Pain in left knee (07/06/23) Low back pain, unspecified (07/06/23) Muscle weakness (generalized) (07/06/23) Difficulty in walking, not elsewhere classified (07/06/23) Abnormal posture (07/06/23) Physical Therapy Treatment Note PT-OP-A Visit Information Start: 03/09/23 10:58 Freq: Status: Active Protocol: Document 07/06/23 09:07 [facility] (Rec: 07/06/23 11:57 [facility] [id number]) Out-Patient Physical Therapy Visit Information Visit Information Visit Type Treatment Note Visit Start Time 09:07 Visit Stop Time 09:45 Visit Number Number of BANK EXAMINER Visits 0 PT-OP-B Current Condition Start: 03/09/23 10:58 Freq: Status: Active Protocol: Document 03/23/23 09:11 [facility] (Rec: 03/23/23 10:22 [facility] [id number]) Current Condition History of Current Condition Current Complaints R hip pain (1 year ago), back pain, B knee pain History of Current Condition Pt reports he has some stomach issues and is adjusting his diet. It seems its getting better but still a problem. he has cut out wheat, and coffee . Pt reports sometimes its just when he eats, that he has pain. Since going back to work, he has inc stress and notes he always had some stomach issues in HS when stressed. 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 He has neck pain, WEBBER, thoracic pain, R hip , LB, B feet and B hands. Hip issue comes and goes. Unsure if from his activities. Has been doing stretches which helps. He notes taking out the gluten has helped w/his dietary changes. He has lost about 10 lbs in last month. It first came on when stretching (tries to at night after work ). He was getting up off the floor and felt a pop in his hip and it has never been excrutiating, but it definitely affects like he is thinking about it. He doesn't notice it much when walking, but when when lifting leg out of bed, feels it in ant hip. Gets tingling in B ring and pinky finger. Knees and feet have been better since taken out wheat for past 3 weeks. LBP is always tight and tense and feels stiff. This has been several years. Does feel like the diet is improving. He used to have to wear shoes in his house d/t barefeet would cause back, knee and hip pian and now can not wear shoes, and only feels it way later in the activity and it is less severe. Goes through phases when real stiff and sore. 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 Thoracic pain has been since he was younger (27 y.o) and had pain in chest. He hasn't felt that again but still feels hot spots in back that come up. Has had B shoulder problems. Notices abdomen bloating and has hx of diahrea. Treatment Goals Patient/Caregiver Goals dec pain and be able to do normal activities w/o inc pain PT-OP-C Subjective Start: 03/09/23 10:58 Freq: Status: Active Protocol: Document 07/06/23 09:07 [facility] (Rec: 07/06/23 11:57 [facility] [id number]) OP-PT Subjective Patient Comments Patient Comments Pt reports he has done exercsies less but is using exercsies as needed. He notes he has put more wt on.Notes some generally achiness. Has been doing Tball and getting some athletic movments in and holding open gyma nd starting to play some basketball. PT-OP-D Balance Start: 03/09/23 10:58 Freq: Status: Active Protocol: Document 03/23/23 09:11 [facility] (Rec: 03/23/23 10:22 [facility] [id number]) Balance Tests Single Limb Standing Single Limb- Right 25 sec w/inc deviation Single Limb- Left >30 sec PT-OP-G Mobility & Gait Start: 03/09/23 10:58 Freq: Status: Active Protocol: Document 03/23/23 09:11 [facility] (Rec: 03/23/23 10:22 [facility] [id number]) OP Gait Assessment Comments Gait Comments stiff in upper body, lat lean; dec stance time on RLE ( slighty); LEs turned out when walking PT-OP-J Posture/Palpation/Skin Start: 03/09/23 10:58 Freq: Status: Active Protocol: Document 06/02/23 09:06 [facility] (Rec: 06/02/23 09:50 [facility] [id number]) Posture Evaluation [facility] Postural Classification System Elbow Flexion Test 2 Lumbar Protective Mechanism Left AP 3 Lumbar Protective Mechanism Right AP 3 Lumbar Protective Mechanism Left PA 3 Lumbar Protective Mechanism Right PA 3 PT-OP-K Range of Motion Start: 03/09/23 10:58 Freq: Status: Active Protocol: Document 03/23/23 09:11 [facility] (Rec: 03/23/23 10:22 [facility] [id number]) Hip Goniometric Range of Motion Hip Right Active Flexion w/Knee Flexed 84 Comments ant hip pain Left Active Flexion w/Knee Flexed 90 Comments ant hip pian PT-OP-M Strength Start: 03/09/23 10:58 Freq: Status: Active Protocol: Document 06/02/23 09:06 [facility] (Rec: 06/02/23 09:50 [facility] [id number]) Hip Strength Hip Manual Muscle Testing Right Flexion (L2) 4- Good- Extension (S1) 5 Normal Abduction 5 Normal Adduction 4 Good External Rotation 5 Normal Internal Rotation 5 Normal Left Flexion (L2) 5 Normal Extension (S1) 5 Normal Abduction 5 Normal Adduction 5 Normal External Rotation 5 Normal Internal Rotation 5 Normal Knee Strength Knee Manual Muscle Testing Right Flexion (S2) 5 Normal Extension (L3) 5 Normal Left Flexion (S2) 5 Normal Extension (L3) 5 Normal PT-OP-Q Treatments Start: 03/09/23 10:58 Freq: Status: Active Protocol: Document 07/06/23 09:07 [facility] (Rec: 07/06/23 11:57 [facility] [id number]) Manual Therapy Treatment Soft Tissue Mobilization abdomen Body Location R to L along RA & obliques and general viserca Mobilization Type Sustained Pressure Comments w/LTR hip flexor Body Location R prox RF & TFL, iliacus Mobilization Type Sustained Pressure,Other Intensity/Depth Moderate Body Position Supine Comments AAROm w/flex back Body Location R QL Mobilization Type Rolling,Sustained Pressure Comments w/LTR Joint Mobilizations innominate Comments R ER FM hip Comments R free the ball IR and hip on axis IR FM Self-Care/Home Management Treatment Education Other Education 15min: discussed w/pt his concerns about diet and encouraged pt to work w/ND to help w/appropriate nutrition; reveiw of importance of sleep and discussed sleep hygiene ( dec blue light before bed, exercise in day), discussed importance of vitamins and discussing w/ND/primary re: deficiencies PT-OP-T Assessment and Plan Start: 03/09/23 10:58 Freq: Status: Active Protocol: Document 07/06/23 09:07 [facility] (Rec: 07/06/23 11:57 [facility] [id number]) Physical Therapy Assessment Goals pain Short Term Goal (STG) pt will be able to lift LE in/ out of bed w/o in R hip pain. 04/23/2023 Patient reports this is improving, but pain is still present. 05/05-still notes pain with lat w/flex lift-less pain 06/01-less pain STG Duration 07/02 Patient Services Clerk Goal (LTG) Pt will report no LE or back pain at the end of the day or when on his feet extended 05/05-back sore all the time; hip improving 06/02/23-less severe and less long duration LTG Duration 08/04 balance Short Term Goal (STG) Pt will be able to do SLS on RLE EO for at least 30 sec STG Duration achieved Senior Care Goal (LTG) Pt will be able to do SLS B w/ EC for at least 15 sec 05/05-12 sec L; 8 sec 06/01-no change LTG Duration 08/04 strength Short Term Goal (STG) Pt will be indep w/HEP STG Duration acheived advancing as able Senior Care Goal (LTG) Pt will score 5/5 on all B LE MMT and at least 3/5 on LPM in all planes in order to show improved core and LE strength in order to create more LE stability during daily activities to dec pain 05/05-improved 06/01-improve LTG Duration 08/04 LEFS Impairment 55/80 Short Term Goal (STG) Pt will improve LEFS score to at least 62/80 to show improved functional ability. 05/05-43/80 06/01-60/80 STG Duration 07/02 Patient Services Clerk Goal (LTG) Pt will improve LEFS score to at least 75/80 to show improved functional ability. LTG Duration 08/05/23 Assessment Summary Assessment Pt had improved R rot w/manual today and is demonstrating overall improved hip ROM w/ less discomfort noted passively. He was open to things discussed and plans to follow up w/other providers Physical Therapy Plan Next Visit Focus/Plan Next Note Type Treatment Note Next Visit Plan look at exercises and dec to 10 min stretching max and no more than 5 min strength; manual to improve spinal mobility
--- NOTE | 2023-07-28 10:31 | PT.OTN ---
Current Diagnoses Pain in right hip (07/28/23) Pain in right knee (07/28/23) Pain in left knee (07/28/23) Low back pain, unspecified (07/28/23) Muscle weakness (generalized) (07/28/23) Difficulty in walking, not elsewhere classified (07/28/23) Abnormal posture (07/28/23) Physical Therapy Treatment Note PT-OP-A Visit Information Start: 03/09/23 10:58 Freq: Status: Active Protocol: Document 07/28/23 09:08 [facility] (Rec: 07/28/23 09:52 [facility] [id number]) Out-Patient Physical Therapy Visit Information Visit Information Visit Type Progress Note Visit Start Time 09:07 Visit Stop Time 09:45 Visit Number Number of LOAD OUT PERSON Visits 0 PT-OP-B Current Condition Start: 03/09/23 10:58 Freq: Status: Active Protocol: Document 03/23/23 09:11 [facility] (Rec: 03/23/23 10:22 [facility] [id number]) Current Condition History of Current Condition Current Complaints R hip pain (1 year ago), back pain, B knee pain History of Current Condition Pt reports he has some stomach issues and is adjusting his diet. It seems its getting better but still a problem. he has cut out wheat, and coffee . Pt reports sometimes its just when he eats, that he has pain. Since going back to work, he has inc stress and notes he always had some stomach issues in HS when stressed. 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 He has neck pain, WEBBER, thoracic pain, R hip , LB, B feet and B hands. Hip issue comes and goes. Unsure if from his activities. Has been doing stretches which helps. He notes taking out the gluten has helped w/his dietary changes. He has lost about 10 lbs in last month. It first came on when stretching (tries to at night after work ). He was getting up off the floor and felt a pop in his hip and it has never been excrutiating, but it definitely affects like he is thinking about it. He doesn't notice it much when walking, but when when lifting leg out of bed, feels it in ant hip. Gets tingling in B ring and pinky finger. Knees and feet have been better since taken out wheat for past 3 weeks. LBP is always tight and tense and feels stiff. This has been several years. Does feel like the diet is improving. He used to have to wear shoes in his house d/t barefeet would cause back, knee and hip pian and now can not wear shoes, and only feels it way later in the activity and it is less severe. Goes through phases when real stiff and sore. 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 Thoracic pain has been since he was younger (27 y.o) and had pain in chest. He hasn't felt that again but still feels hot spots in back that come up. Has had B shoulder problems. Notices abdomen bloating and has hx of diahrea. Treatment Goals Patient/Caregiver Goals dec pain and be able to do normal activities w/o inc pain PT-OP-C Subjective Start: 03/09/23 10:58 Freq: Status: Active Protocol: Document 07/28/23 09:08 [facility] (Rec: 07/28/23 09:52 [facility] [id number]) OP-PT Subjective Patient Comments Patient Comments Pt played open gym one time and was sore in arms and feet were sore. It took about 4 days before they felt more normal. Fell off routine d/t having sinus issue last week. He plans to resume this week. PT-OP-D Balance Start: 03/09/23 10:58 Freq: Status: Active Protocol: Document 03/23/23 09:11 [facility] (Rec: 03/23/23 10:22 [facility] [id number]) Balance Tests Single Limb Standing Single Limb- Right 25 sec w/inc deviation Single Limb- Left >30 sec PT-OP-G Mobility & Gait Start: 03/09/23 10:58 Freq: Status: Active Protocol: Document 03/23/23 09:11 [facility] (Rec: 03/23/23 10:22 [facility] [id number]) OP Gait Assessment Comments Gait Comments stiff in upper body, lat lean; dec stance time on RLE ( slighty); LEs turned out when walking PT-OP-J Posture/Palpation/Skin Start: 03/09/23 10:58 Freq: Status: Active Protocol: Document 07/28/23 09:08 [facility] (Rec: 07/28/23 09:52 [facility] [id number]) Posture Evaluation [facility] Postural Classification System Elbow Flexion Test 2 Lumbar Protective Mechanism Left AP 4 Lumbar Protective Mechanism Right AP 2 Lumbar Protective Mechanism Left PA 4 Lumbar Protective Mechanism Right PA 2 PT-OP-K Range of Motion Start: 03/09/23 10:58 Freq: Status: Active Protocol: Document 03/23/23 09:11 [facility] (Rec: 03/23/23 10:22 [facility] [id number]) Hip Goniometric Range of Motion Hip Right Active Flexion w/Knee Flexed 84 Comments ant hip pain Left Active Flexion w/Knee Flexed 90 Comments ant hip pian PT-OP-M Strength Start: 03/09/23 10:58 Freq: Status: Active Protocol: Document 07/28/23 09:08 [facility] (Rec: 07/28/23 09:52 [facility] [id number]) Hip Strength Hip Manual Muscle Testing Right Flexion (L2) 5 Normal Extension (S1) 5 Normal Abduction 5 Normal Adduction 4 Good External Rotation 5 Normal Internal Rotation 5 Normal Knee Strength Knee Manual Muscle Testing Right Flexion (S2) 5 Normal Extension (L3) 5 Normal Left Flexion (S2) 5 Normal Extension (L3) 5 Normal PT-OP-Q Treatments Start: 03/09/23 10:58 Freq: Status: Active Protocol: Document 07/28/23 09:08 [facility] (Rec: 07/28/23 09:52 [facility] [id number]) Therapeutic Exercises Sidelying Exercises hip add Side right Reps/Minutes 10 Comments pain noted Standing Exercises SL Standing Exercise Name working on shifting trunk out of GRISEL Side bilateral standing glute med isometric Standing Exercise Name glute med isometric at wall Side bilateral Reps/Minutes 1 one minute hold Comments visual cues Other Exercises isometrics Other Exercise Name MMT LEs & LPM, EFT Side bilateral Reps/Minutes 7 min Manual Therapy Treatment Soft Tissue Mobilization lat Body Location R TFL Mobilization Type Rolling,Strumming Intensity/Depth Moderate Comments sup/s/l gluteal/piriformis Body Location R sup Mobilization Type Rolling,Strumming,Sustained Pressure Comments s/l Joint Mobilizations innominate Comments R add FM hip Comments R free the ball IR and add FM Self-Care/Home Management Treatment Education Other Education 15min: discussion of warm up well to participate in quick movements like bball and discussed ways to inc exercise into daily life like dancing w/kids to music and doing jumping activities then (warm up first); try kids yoga videos so it is a family activity. When kids doing sports, participate in drills and activities once warmed up. PT-OP-T Assessment and Plan Start: 03/09/23 10:58 Freq: Status: Active Protocol: Document 07/28/23 09:08 [facility] (Rec: 07/28/23 09:52 [facility] [id number]) Physical Therapy Assessment Goals pain Short Term Goal (STG) pt will be able to lift LE in/ out of bed w/o in R hip pain. 04/23/2023 Patient reports this is improving, but pain is still present. 05/05-still notes pain with lat w/flex lift-less pain 06/01-less pain 07/27-dec pain and not always STG Duration 08/24 Prison Goal (LTG) Pt will report no LE or back pain at the end of the day or when on his feet extended 05/05-back sore all the time; hip improving 06/02/23-less severe and less long duration 07/27-improved when consistant exercises LTG Duration 09/21 balance Short Term Goal (STG) Pt will be able to do SLS on RLE EO for at least 30 sec STG Duration achieved Prison Goal (LTG) Pt will be able to do SLS B w/ EC for at least 15 sec 05/05-12 sec L; 8 sec 06/01-no change 07/27-n/t LTG Duration 09/21 strength Short Term Goal (STG) Pt will be indep w/HEP STG Duration acheived advancing as able Prison Goal (LTG) Pt will score 5/5 on all B LE MMT and at least 3/5 on LPM in all planes in order to show improved core and LE strength in order to create more LE stability during daily activities to dec pain 05/05-improved 06/01-improve 07/27-mostly achieved and add improvedt o 5 after manual LTG Duration 09/21 LEFS Impairment 55/80 Short Term Goal (STG) Pt will improve LEFS score to at least 62/80 to show improved functional ability. 05/05-43/80 06/01-60/80 07/27-n/t but pt has played bball STG Duration 08/27 Bread Racker Goal (LTG) Pt will improve LEFS score to at least 75/80 to show improved functional ability. LTG Duration 09/21 Assessment Summary Assessment Pt has made progress towards goals w/improved functional ability including playing basketball one time w/o inc R hip pain and some mild back soreness. He has had recent inc pain in back pain and hip pain w/dec exercise d/t sickness. He has improved overall strength and after manual was able to resist against add w/o inc pain. Cont PT to focus on dec pain and improved function. Physical Therapy Plan Frequency and Duration Frequency of Treatment 1x/Week Duration of treatment (weeks) 8 Plan of Care Start Date 07/28/23 Plan of Care End Date 09/22/23 Therapeutic Interventions Therapeutic Interventions Balance Training,Gait Training ,Home Exercise Program,Joint Mobilizations,Manual Therapy, Neuromuscular Re-education, Patient/Caregiver Education, Self-Care/Home Management,Soft Tissue Mobilization,Taping, Therapeutic Activities, Therapeutic Exercises Modalities Cold Pack/Ice Massage,Electric Stimulation,Infrared Therapy, Traction- Mechanical, Ultrasound Next Visit Focus/Plan Next Note Type Treatment Note Next Visit Plan look at exercises and dec to 10 min stretching max and no more than 5 min strength; manual to improve spinal mobility
--- NOTE | 2023-07-28 10:32 | PT.OPPOC ---
Physical, Occupational & Speech Therapy At [facility] Current Diagnoses Pain in right hip (07/28/23) Pain in right knee (07/28/23) Pain in left knee (07/28/23) Low back pain, unspecified (07/28/23) Muscle weakness (generalized) (07/28/23) Difficulty in walking, not elsewhere classified (07/28/23) Abnormal posture (07/28/23) Visit Care Team Role Provider Type Mina Van MD Family Provider Physician Primary Care Provider Specialty: Family Practice Address: [address] [place] [address], [address], [address] Email: [email or web address] PA-C Attending Provider Advanced Integration Software Developer Referring Provider Specialty: Medical Address: [address] [place] [address], [address], [address] Email: [email or web address] Plan Of Care PT-OP-T Assessment and Plan Start: 03/09/23 10:58 Freq: Status: Active Protocol: Document 07/28/23 09:08 [facility] (Rec: 07/28/23 09:52 [facility] [id number]) Physical Therapy Assessment Goals pain Short Term Goal (STG) pt will be able to lift LE in/ out of bed w/o in R hip pain. 04/23/2023 Patient reports this is improving, but pain is still present. 05/05-still notes pain with lat w/flex lift-less pain 06/01-less pain 07/27-dec pain and not always STG Duration 08/24 Project Developer Goal (LTG) Pt will report no LE or back pain at the end of the day or when on his feet extended 05/05-back sore all the time; hip improving 06/02/23-less severe and less long duration 07/27-improved when consistant exercises LTG Duration 09/21 balance Short Term Goal (STG) Pt will be able to do SLS on RLE EO for at least 30 sec STG Duration achieved Project Developer Goal (LTG) Pt will be able to do SLS B w/ EC for at least 15 sec 05/05-12 sec L; 8 sec 06/01-no change 07/27-n/t LTG Duration 09/21 strength Short Term Goal (STG) Pt will be indep w/HEP STG Duration acheived advancing as able Assisted Goal (LTG) Pt will score 5/5 on all B LE MMT and at least 3/5 on LPM in all planes in order to show improved core and LE strength in order to create more LE stability during daily activities to dec pain 05/05-improved 06/01-improve 07/27-mostly achieved and add improvedt o 5 after manual LTG Duration 09/21 LEFS Impairment 55/80 Short Term Goal (STG) Pt will improve LEFS score to at least 62/80 to show improved functional ability. 05/05-43/80 06/01-60/80 07/27-n/t but pt has played [employer] STG Duration 08/27 Project Developer Goal (LTG) Pt will improve LEFS score to at least 75/80 to show improved functional ability. LTG Duration 09/21 Assessment Summary Assessment Pt has made progress towards goals w/improved functional ability including playing basketball one time w/o inc R hip pain and some mild back soreness. He has had recent inc pain in back pain and hip pain w/dec exercise d/t sickness. He has improved overall strength and after manual was able to resist against add w/o inc pain. Cont PT to focus on dec pain and improved function. Physical Therapy Plan Frequency and Duration Frequency of Treatment 1x/Week Duration of treatment (weeks) 8 Plan of Care Start Date 07/28/23 Plan of Care End Date 09/22/23 Therapeutic Interventions Therapeutic Interventions Balance Training,Gait Training ,Home Exercise Program,Joint Mobilizations,Manual Therapy, Neuromuscular Re-education, Patient/Caregiver Education, Self-Care/Home Management,Soft Tissue Mobilization,Taping, Therapeutic Activities, Therapeutic Exercises Modalities Cold Pack/Ice Massage,Electric Stimulation,Infrared Therapy, Traction- Mechanical, Ultrasound Next Visit Focus/Plan Next Note Type Treatment Note Next Visit Plan look at exercises and dec to 10 min stretching max and no more than 5 min strength; manual to improve spinal mobility Plan of Care Dates Plan of Care Start Date 07/28/23 Plan of Care End Date 09/22/23 Electronically Signed by: Gifty Vernon, PT 07/28/23 1032 If you are in agreement with this Plan of Care, please return a signed and dated copy. I have reviewed this Plan of Care and certify that the skilled therapy services above are required to meet the patient?s needs. Physician Signature Date Printed Name and Credentials Clinical Instructor Signature Printed Name and Credentials
--- NOTE | 2023-08-04 10:26 | PT.OTN ---
Current Diagnoses Pain in right hip (08/04/23) Pain in right knee (08/04/23) Pain in left knee (08/04/23) Low back pain, unspecified (08/04/23) Muscle weakness (generalized) (08/04/23) Difficulty in walking, not elsewhere classified (08/04/23) Abnormal posture (08/04/23) Physical Therapy Treatment Note PT-OP-A Visit Information Start: 03/09/23 10:58 Freq: Status: Active Protocol: Document 08/04/23 07:30 [facility] (Rec: 08/04/23 10:26 [facility] [id number]) Out-Patient Physical Therapy Visit Information Visit Information Visit Type Treatment Note Visit Start Time 07:33 Visit Stop Time 08:15 Visit Number Number of FOLD SKIVER Visits 0 PT-OP-B Current Condition Start: 03/09/23 10:58 Freq: Status: Active Protocol: Document 03/23/23 09:11 [facility] (Rec: 03/23/23 10:22 [facility] [id number]) Current Condition History of Current Condition Current Complaints R hip pain (1 year ago), back pain, B knee pain History of Current Condition Pt reports he has some stomach issues and is adjusting his diet. It seems its getting better but still a problem. he has cut out wheat, and coffee . Pt reports sometimes its just when he eats, that he has pain. Since going back to work, he has inc stress and notes he always had some stomach issues in HS when stressed. 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 He has neck pain, WEBBER, thoracic pain, R hip , LB, B feet and B hands. Hip issue comes and goes. Unsure if from his activities. Has been doing stretches which helps. He notes taking out the gluten has helped w/his dietary changes. He has lost about 10 lbs in last month. It first came on when stretching (tries to at night after work ). He was getting up off the floor and felt a pop in his hip and it has never been excrutiating, but it definitely affects like he is thinking about it. He doesn't notice it much when walking, but when when lifting leg out of bed, feels it in ant hip. Gets tingling in B ring and pinky finger. Knees and feet have been better since taken out wheat for past 3 weeks. LBP is always tight and tense and feels stiff. This has been several years. Does feel like the diet is improving. He used to have to wear shoes in his house d/t barefeet would cause back, knee and hip pian and now can not wear shoes, and only feels it way later in the activity and it is less severe. Goes through phases when real stiff and sore. 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 Thoracic pain has been since he was younger (27 y.o) and had pain in chest. He hasn't felt that again but still feels hot spots in back that come up. Has had B shoulder problems. Notices abdomen bloating and has hx of diahrea. Treatment Goals Patient/Caregiver Goals dec pain and be able to do normal activities w/o inc pain PT-OP-C Subjective Start: 03/09/23 10:58 Freq: Status: Active Protocol: Document 08/04/23 07:30 [facility] (Rec: 08/04/23 10:26 [facility] [id number]) OP-PT Subjective Patient Comments Patient Comments has returned to HEP:hip flexor , quad stretch, calf stretch, HS stretch, squat sit stretch, piedad stretch, 1/2 kneel, figure 4, open book, butterfly , LTR, spidermans strength: split squat 3x10, plank 30 sec, 3x10 squat, [id number] sideplank PT-OP-D Balance Start: 03/09/23 10:58 Freq: Status: Active Protocol: Document 03/23/23 09:11 [facility] (Rec: 03/23/23 10:22 [facility] [id number]) Balance Tests Single Limb Standing Single Limb- Right 25 sec w/inc deviation Single Limb- Left >30 sec PT-OP-G Mobility & Gait Start: 03/09/23 10:58 Freq: Status: Active Protocol: Document 03/23/23 09:11 [facility] (Rec: 03/23/23 10:22 [facility] [id number]) OP Gait Assessment Comments Gait Comments stiff in upper body, lat lean; dec stance time on RLE ( slighty); LEs turned out when walking PT-OP-J Posture/Palpation/Skin Start: 03/09/23 10:58 Freq: Status: Active Protocol: Document 07/28/23 09:08 [facility] (Rec: 07/28/23 09:52 [facility] [id number]) Posture Evaluation [facility] Postural Classification System Elbow Flexion Test 2 Lumbar Protective Mechanism Left AP 4 Lumbar Protective Mechanism Right AP 2 Lumbar Protective Mechanism Left PA 4 Lumbar Protective Mechanism Right PA 2 PT-OP-K Range of Motion Start: 03/09/23 10:58 Freq: Status: Active Protocol: Document 03/23/23 09:11 [facility] (Rec: 03/23/23 10:22 [facility] [id number]) Hip Goniometric Range of Motion Hip Right Active Flexion w/Knee Flexed 84 Comments ant hip pain Left Active Flexion w/Knee Flexed 90 Comments ant hip pian PT-OP-M Strength Start: 03/09/23 10:58 Freq: Status: Active Protocol: Document 07/28/23 09:08 [facility] (Rec: 07/28/23 09:52 [facility] [id number]) Hip Strength Hip Manual Muscle Testing Right Flexion (L2) 5 Normal Extension (S1) 5 Normal Abduction 5 Normal Adduction 4 Good External Rotation 5 Normal Internal Rotation 5 Normal Knee Strength Knee Manual Muscle Testing Right Flexion (S2) 5 Normal Extension (L3) 5 Normal Left Flexion (S2) 5 Normal Extension (L3) 5 Normal PT-OP-Q Treatments Start: 03/09/23 10:58 Freq: Status: Active Protocol: Document 08/04/23 07:30 [facility] (Rec: 08/04/23 10:26 [facility] [id number]) Therapeutic Exercises Prone Exercises plank Prone Exercise Name forearm and feet Side bilateral Reps/Minutes 30s ec Comments cues back and shoulder position Sidelying Exercises sideplank Sidelying Exercise Name forearm and feet Side bilateral Reps/Minutes 20 sec ea Comments good from Standing Exercises squats Standing Exercise Name air Reps/Minutes x10 Comments min cues needed Other Exercises stretches Other Exercise Name review of stretches w/o holds w/focus on position Side bilateral Reps/Minutes 18 min Manual Therapy Treatment Soft Tissue Mobilization back Body Location B ES Mobilization Type Strumming Body Position Sidelying Joint Mobilizations lumbar Comments transverse glide L L1-4 FM; ext mob s/l PIVM L1-2, 2-3 Self-Care/Home Management Treatment Education Other Education 5 min: edu to add weight w/ lunges/squats to dec reps. edu to cont to stretch and how to condense stretches to de less PT-OP-T Assessment and Plan Start: 03/09/23 10:58 Freq: Status: Active Protocol: Document 08/04/23 07:30 [facility] (Rec: 08/04/23 10:26 [facility] [id number]) Physical Therapy Assessment Goals pain Short Term Goal (STG) pt will be able to lift LE in/ out of bed w/o in R hip pain. 04/23/2023 Patient reports this is improving, but pain is still present. 05/05-still notes pain with lat w/flex lift-less pain 06/01-less pain 07/27-dec pain and not always STG Duration 08/24 Fdc Goal (LTG) Pt will report no LE or back pain at the end of the day or when on his feet extended 05/05-back sore all the time; hip improving 06/02/23-less severe and less long duration 07/27-improved when consistant exercises LTG Duration 09/21 balance Short Term Goal (STG) Pt will be able to do SLS on RLE EO for at least 30 sec STG Duration achieved Low Vision Therapist Goal (LTG) Pt will be able to do SLS B w/ EC for at least 15 sec 05/05-12 sec L; 8 sec 06/01-no change 07/27-n/t LTG Duration 09/21 strength Short Term Goal (STG) Pt will be indep w/HEP STG Duration acheived advancing as able Low Vision Therapist Goal (LTG) Pt will score 5/5 on all B LE MMT and at least 3/5 on LPM in all planes in order to show improved core and LE strength in order to create more LE stability during daily activities to dec pain 05/05-improved 06/01-improve 07/27-mostly achieved and add improvedt o 5 after manual LTG Duration 09/21 LEFS Impairment 55/80 Short Term Goal (STG) Pt will improve LEFS score to at least 62/80 to show improved functional ability. 05/05-43/80 06/01-60/80 5-n/t but pt has played bball STG Duration 08/27 Low Vision Therapist Goal (LTG) Pt will improve LEFS score to at least 75/80 to show improved functional ability. LTG Duration 09/21 Assessment Summary Assessment Pt improved w/L>R SB after manual care today. he did well with exercises overall but does have more difficulty w/ fwd vs sideplank and still need cues. Ablet o demo good positions w/stretches Physical Therapy Plan Frequency and Duration Frequency of Treatment 1x/Week Duration of treatment (weeks) 8 Plan of Care Start Date 07/28/23 Plan of Care End Date 09/22/23 Next Visit Focus/Plan Next Note Type Treatment Note Next Visit Plan review fwd plank as needed for pt; PNF for faciliation; manual for improved mobility
--- NOTE | 2023-08-16 16:03 | PT.OTN ---
Current Diagnoses Pain in right hip (08/16/23) Pain in right knee (08/16/23) Pain in left knee (08/16/23) Low back pain, unspecified (08/16/23) Muscle weakness (generalized) (08/16/23) Difficulty in walking, not elsewhere classified (08/16/23) Abnormal posture (08/16/23) Physical Therapy Treatment Note PT-OP-A Visit Information Start: 03/09/23 10:58 Freq: Status: Active Protocol: Document 08/16/23 15:14 [facility] (Rec: 08/16/23 16:03 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 (Rec: 03/23/23 10:22 [facility] [id number]) Current Condition History of Current Condition Current Complaints R hip pain (1 year ago), back pain, B knee pain History of Current Condition Pt reports he has some stomach issues and is adjusting his diet. It seems its getting better but still a problem. he has cut out wheat, and coffee . Pt reports sometimes its just when he eats, that he has pain. Since going back to work, he has inc stress and notes he always had some stomach issues in HS when stressed. 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 He has neck pain, WEBBER, thoracic pain, R hip , LB, B feet and B hands. Hip issue comes and goes. Unsure if from his activities. Has been doing stretches which helps. He notes taking out the gluten has helped w/his dietary changes. He has lost about 10 lbs in last month. It first came on when stretching (tries to at night after work ). He was getting up off the floor and felt a pop in his hip and it has never been excrutiating, but it definitely affects like he is thinking about it. He doesn't notice it much when walking, but when when lifting leg out of bed, feels it in ant hip. Gets tingling in B ring and pinky finger. Knees and feet have been better since taken out wheat for past 3 weeks. LBP is always tight and tense and feels stiff. This has been several years. Does feel like the diet is improving. He used to have to wear shoes in his house d/t barefeet would cause back, knee and hip pian and now can not wear shoes, and only feels it way later in the activity and it is less severe. Goes through phases when real stiff and sore. 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 Thoracic pain has been since he was younger (27 y.o) and had pain in chest. He hasn't felt that again but still feels hot spots in back that come up. Has had B shoulder problems. Notices abdomen bloating and has hx of diahrea. Treatment Goals Patient/Caregiver Goals dec pain and be able to do normal activities w/o inc pain PT-OP-C Subjective Start: 03/09/23 10:58 Freq: Status: Active Protocol: Document 08/16/23 15:14 [facility] (Rec: 08/16/23 16:03 [facility] [id number]) OP-PT Subjective Patient Comments Patient Comments Pt was crawling under someones house and tweaked his R hip. HE had to have legs abd d/t how small the space was. H has had some pain down front of R leg and lat hip PT-OP-D Balance Start: 03/09/23 10:58 Freq: Status: Active Protocol: Document 03/23/23 09:11 [facility] (Rec: 03/23/23 10:22 [facility] [id number]) Balance Tests Single Limb Standing Single Limb- Right 25 sec w/inc deviation Single Limb- Left >30 sec PT-OP-G Mobility & Gait Start: 03/09/23 10:58 Freq: Status: Active Protocol: Document 03/23/23 09:11 [facility] (Rec: 03/23/23 10:22 [facility] [id number]) OP Gait Assessment Comments Gait Comments stiff in upper body, lat lean; dec stance time on RLE ( slighty); LEs turned out when walking PT-OP-J Posture/Palpation/Skin Start: 03/09/23 10:58 Freq: Status: Active Protocol: Document 07/28/23 09:08 [facility] (Rec: 07/28/23 09:52 [facility] [id number]) Posture Evaluation Clement Postural Classification System Elbow Flexion Test 2 Lumbar Protective Mechanism Left AP 4 Lumbar Protective Mechanism Right AP 2 Lumbar Protective Mechanism Left PA 4 Lumbar Protective Mechanism Right PA 2 PT-OP-K Range of Motion Start: 03/09/23 10:58 Freq: Status: Active Protocol: Document 03/23/23 09:11 [facility] (Rec: 03/23/23 10:22 [facility] [id number]) Hip Goniometric Range of Motion Hip Right Active Flexion w/Knee Flexed 84 Comments ant hip pain Left Active Flexion w/Knee Flexed 90 Comments ant hip pian PT-OP-M Strength Start: 03/09/23 10:58 Freq: Status: Active Protocol: Document 07/28/23 09:08 [facility] (Rec: 07/28/23 09:52 [facility] [id number]) Hip Strength Hip Manual Muscle Testing Right Flexion (L2) 5 Normal Extension (S1) 5 Normal Abduction 5 Normal Adduction 4 Good External Rotation 5 Normal Internal Rotation 5 Normal Knee Strength Knee Manual Muscle Testing Right Flexion (S2) 5 Normal Extension (L3) 5 Normal Left Flexion (S2) 5 Normal Extension (L3) 5 Normal PT-OP-Q Treatments Start: 03/09/23 10:58 Freq: Status: Active Protocol: Document 08/16/23 15:14 [facility] (Rec: 08/16/23 16:03 [facility] [id number]) Therapeutic Exercises Prone Exercises plank Prone Exercise Name forearm and feet Side bilateral Reps/Minutes 30s ec Comments min cues for neck position Manual Therapy Treatment Soft Tissue Mobilization abdomen Comments 1.post pariatal peretoneum/ fascia of TA/Psoas/QL quadruped mod w/hands on table, feet on floor, angry cat and lat shifts 2. ant pariatel peritoneum/TA fasica and fascia along small intensine w/LTR 3. mesenteric root/fascia along ant spine w/LTR hip flexors Body Location R iliacus Mobilization Type Sustained Pressure Intensity/Depth Moderate Comments w/flex Joint Mobilizations innominate Joint R flex FM & ER FM Body Position Hooklying hip Joint R inf FM and lat glide w/add FM PT-OP-T Assessment and Plan Start: 03/09/23 10:58 Freq: Status: Active Protocol: Document 08/16/23 15:14 [facility] (Rec: 08/16/23 16:03 [facility] [id number]) Physical Therapy Assessment Goals pain Short Term Goal (STG) pt will be able to lift LE in/ out of bed w/o in R hip pain. 04/23/2023 Patient reports this is improving, but pain is still present. 05/05-still notes pain with lat w/flex lift-less pain 06/01-less pain 07/27-dec pain and not always STG Duration 08/24 Care Home Goal (LTG) Pt will report no LE or back pain at the end of the day or when on his feet extended 05/05-back sore all the time; hip improving 06/02/23-less severe and less long duration 07/27-improved when consistant exercises LTG Duration 09/21 balance Short Term Goal (STG) Pt will be able to do SLS on RLE EO for at least 30 sec STG Duration achieved Care Home Goal (LTG) Pt will be able to do SLS B w/ EC for at least 15 sec 05/05-12 sec L; 8 sec 06/01-no change 07/27-n/t LTG Duration 09/21 strength Short Term Goal (STG) Pt will be indep w/HEP STG Duration acheived advancing as able Cost Analyst Goal (LTG) Pt will score 5/5 on all B LE MMT and at least 3/5 on LPM in all planes in order to show improved core and LE strength in order to create more LE stability during daily activities to dec pain 05/05-improved 06/01-improve 07/27-mostly achieved and add improvedt o 5 after manual LTG Duration 09/21 LEFS Impairment 55/80 Short Term Goal (STG) Pt will improve LEFS score to at least 62/80 to show improved functional ability. 05/05-43/80 06/01-60/80 07/27-n/t but pt has played bball STG Duration 08/27 Cost Analyst Goal (LTG) Pt will improve LEFS score to at least 75/80 to show improved functional ability. LTG Duration 09/21 Assessment Summary Assessment Pt reports relief in hip at end of session. Improved hip add, flex and ER w/less pain and tension. He has abdominal tension likely pulling to LB and could feel pull to LB w/ mobs. given self mob for home Physical Therapy Plan Frequency and Duration Frequency of Treatment 1x/Week Duration of treatment (weeks) 8 Plan of Care Start Date 07/28/23 Plan of Care End Date 09/22/23 Next Visit Focus/Plan Next Note Type Treatment Note Next Visit Plan PNF for faciliation; manual for improved mobility
--- NOTE | 2023-09-13 18:13 | PT.OPPN ---
Current Diagnoses Pain in right hip (09/13/23) Pain in right knee (09/13/23) Pain in left knee (09/13/23) Low back pain, unspecified (09/13/23) Muscle weakness (generalized) (09/13/23) Difficulty in walking, not elsewhere classified (09/13/23) Abnormal posture (09/13/23) Physical Therapy Progress Note PT-OP-A Visit Information Start: 03/09/23 10:58 Freq: Status: Active Protocol: Document 09/13/23 15:24 [facility] (Rec: 09/13/23 18:15 [facility] [id number]) Out-Patient Physical Therapy Visit Information Visit Information Visit Type Progress Note Visit Start Time 15:22 Visit Stop Time 16:00 Visit Number 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 It seems its getting better but still a problem. he has cut out wheat, and coffee . Pt reports sometimes its just when he eats, that he has pain. Since going back to work, he has inc stress and notes he always had some stomach issues in HS when stressed. 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 He has neck pain, WEBBER, thoracic pain, R hip , LB, B feet and B hands. Hip issue comes and goes. Unsure if from his activities. Has been doing stretches which helps. He notes taking out the gluten has helped w/his dietary changes. He has lost about 10 lbs in last month. It first came on when stretching (tries to at night after work ). He was getting up off the floor and felt a pop in his hip and it has never been excrutiating, but it definitely affects like he is thinking about it. He doesn't notice it much when walking, but when when lifting leg out of bed, feels it in ant hip. Gets tingling in B ring and pinky finger. Knees and feet have been better since taken out wheat for past 3 weeks. LBP is always tight and tense and feels stiff. This has been several years. Does feel like the diet is improving. He used to have to wear shoes in his house d/t barefeet would cause back, knee and hip pian and now can not wear shoes, and only feels it way later in the activity and it is less severe. Goes through phases when real stiff and sore. 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 Thoracic pain has been since he was younger (27 y.o) and had pain in chest. He hasn't felt that again but still feels hot spots in back that come up. Has had B shoulder problems. Notices abdomen bloating and has hx of diahrea. Treatment Goals Patient/Caregiver Goals dec pain and be able to do normal activities w/o inc pain PT-OP-C Subjective Start: 03/09/23 10:58 Freq: Status: Active Protocol: Document 09/13/23 15:24 [facility] (Rec: 09/13/23 18:15 [facility] [id number]) OP-PT Subjective Patient Comments Patient Comments back hasn't been too bad. Has been doing stretches some still. Slowly start back to strength but recently got a puppy. HIp does feel irritated in sup hip flexor area/sup pelvis area and lat pelvis PT-OP-D Balance Start: 03/09/23 10:58 Freq: Status: Active Protocol: Document 03/23/23 09:11 [facility] (Rec: 03/23/23 10:22 [facility] [id number]) Balance Tests Single Limb Standing Single Limb- Right 25 sec w/inc deviation Single Limb- Left >30 sec PT-OP-G Mobility & Gait Start: 03/09/23 10:58 Freq: Status: Active Protocol: Document 03/23/23 09:11 [facility] (Rec: 03/23/23 10:22 [facility] [id number]) OP Gait Assessment Comments Gait Comments stiff in upper body, lat lean; dec stance time on RLE ( slighty); LEs turned out when walking PT-OP-J Posture/Palpation/Skin Start: 03/09/23 10:58 Freq: Status: Active Protocol: Document 09/13/23 15:24 [facility] (Rec: 09/13/23 18:15 [facility] [id number]) Posture Evaluation Clement Postural Classification System Elbow Flexion Test 2 Lumbar Protective Mechanism Left AP 3 Lumbar Protective Mechanism Right AP 1 Lumbar Protective Mechanism Left PA 3 Lumbar Protective Mechanism Right PA 5 PT-OP-K Range of Motion Start: 03/09/23 10:58 Freq: Status: Active Protocol: Document 03/23/23 09:11 [facility] (Rec: 03/23/23 10:22 [facility] [id number]) Hip Goniometric Range of Motion Hip Measured in Degrees Right Active Flexion w/Knee Flexed 84 Comments ant hip pain Left Active Flexion w/Knee Flexed 90 Comments ant hip pian PT-OP-M Strength Start: 03/09/23 10:58 Freq: Status: Active Protocol: Document 09/13/23 15:24 [facility] (Rec: 09/13/23 18:15 [facility] [id number]) Hip Strength Hip Manual Muscle Testing Right Flexion (L2) 3+ Fair+ Extension (S1) 5 Normal Abduction 4+ Good+ Adduction 4 Good External Rotation 5 Normal Internal Rotation 5 Normal Comments pain ant hip B w/hip flex and ER Left Flexion (L2) 3+ Fair+ Extension (S1) 5 Normal Abduction 5 Normal Adduction 5 Normal External Rotation 5 Normal Internal Rotation 5 Normal Knee Strength Knee Manual Muscle Testing Right Flexion (S2) 5 Normal Extension (L3) 5 Normal Left Flexion (S2) 5 Normal Extension (L3) 5 Normal PT-OP-T Assessment and Plan Start: 03/09/23 10:58 Freq: Status: Active Protocol: Document 09/13/23 15:24 [facility] (Rec: 09/13/23 18:15 [facility] [id number]) Physical Therapy Assessment Goals pain Short Term Goal (STG) pt will be able to lift LE in/ out of bed w/o in R hip pain. 04/23/2023 Patient reports this is improving, but pain is still present. 05/05-still notes pain with lat w/flex lift-less pain 06/01-less pain 07/27-dec pain and not always 09/12-recent inc STG Duration 09/23 Chairman Emeritus Goal (LTG) Pt will report no LE or back pain at the end of the day or when on his feet extended 05/05-back sore all the time; hip improving 06/02/23-less severe and less long duration 07/27-improved when consistant exercises LTG Duration achieved 09/12 balance Short Term Goal (STG) Pt will be able to do SLS on RLE EO for at least 30 sec STG Duration achieved Chairman Emeritus Goal (LTG) Pt will be able to do SLS B w/ EC for at least 15 sec 05/05-12 sec L; 8 sec 06/01-no change 07/27-n/t 09/12-about 5 sec B LTG Duration 11/07 strength Short Term Goal (STG) Pt will be indep w/HEP STG Duration acheived advancing as able Chairman Emeritus Goal (LTG) Pt will score 5/5 on all B LE MMT and at least 3/5 on LPM in all planes in order to show improved core and LE strength in order to create more LE stability during daily activities to dec pain 05/05-improved 06/01-improve 07/27-mostly achieved and add improvedt o 5 after manual 09/12-some dec w/hip today but improved LPM LTG Duration 11/07 LEFS Impairment 55/80 Short Term Goal (STG) Pt will improve LEFS score to at least 62/80 to show improved functional ability. 05/05-43/80 06/01-60/80 07/27-n/t but pt has played bball 09/12-54/80 STG Duration 09/26 Chairman Emeritus Goal (LTG) Pt will improve LEFS score to at least 75/80 to show improved functional ability. LTG Duration 11/07 Assessment Summary Assessment pt has made some progress w/PT with improved pain overall after days work but still inc hip pain recently. Improved hip ROm after manual treatment today though and encouraged to do self inf glide at home. D/t inc personal activities, pt has had dec time for strength and was encouraged to make time as able for this. Cont PT for dec pain and imporved funciton Physical Therapy Plan Frequency and Duration Frequency of Treatment 1x/Week Duration of treatment (weeks) 8 Plan of Care Start Date 09/13/23 Plan of Care End Date 11/08/23 Therapeutic Interventions Therapeutic Interventions Balance Training,Gait Training ,Home Exercise Program,Joint Mobilizations,Manual Therapy, Neuromuscular Re-education, Patient/Caregiver Education, Self-Care/Home Management,Soft Tissue Mobilization,Taping, Therapeutic Activities, Therapeutic Exercises Modalities Cold Pack/Ice Massage,Electric Stimulation,Infrared Therapy, Traction- Mechanical, Ultrasound Next Visit Focus/Plan Next Note Type Treatment Note Next Visit Plan PNF for faciliation; manual for improved mobility
--- NOTE | 2023-09-13 18:49 | PT.OTN ---
Current Diagnoses Pain in right hip (09/13/23) Pain in right knee (09/13/23) Pain in left knee (09/13/23) Low back pain, unspecified (09/13/23) Muscle weakness (generalized) (09/13/23) Difficulty in walking, not elsewhere classified (09/13/23) Abnormal posture (09/13/23) Physical Therapy Treatment Note PT-OP-A Visit Information Start: 03/09/23 10:58 Freq: Status: Active Protocol: Document 09/13/23 15:24 [facility] (Rec: 09/13/23 18:15 [facility] [id number]) Out-Patient Physical Therapy Visit Information Visit Information Visit Type Progress Note Visit Start Time 15:22 Visit Stop Time 16:00 Visit Number Number of FRANCHISE DEVELOPMENT MANAGER Visits 0 PT-OP-B Current Condition Start: 03/09/23 10:58 Freq: Status: Active Protocol: Document 03/23/23 09:11 [facility] (Rec: 03/23/23 10:22 [facility] [id number]) Current Condition History of Current Condition Current Complaints R hip pain (1 year ago), back pain, B knee pain History of Current Condition Pt reports he has some stomach issues and is adjusting his diet. It seems its getting better but still a problem. he has cut out wheat, and coffee . Pt reports sometimes its just when he eats, that he has pain. Since going back to work, he has inc stress and notes he always had some stomach issues in HS when stressed. 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 He has neck pain, WEBBER, thoracic pain, R hip , LB, B feet and B hands. Hip issue comes and goes. Unsure if from his activities. Has been doing stretches which helps. He notes taking out the gluten has helped w/his dietary changes. He has lost about 10 lbs in last month. It first came on when stretching (tries to at night after work ). He was getting up off the floor and felt a pop in his hip and it has never been excrutiating, but it definitely affects like he is thinking about it. He doesn't notice it much when walking, but when when lifting leg out of bed, feels it in ant hip. Gets tingling in B ring and pinky finger. Knees and feet have been better since taken out wheat for past 3 weeks. LBP is always tight and tense and feels stiff. This has been several years. Does feel like the diet is improving. He used to have to wear shoes in his house d/t barefeet would cause back, knee and hip pian and now can not wear shoes, and only feels it way later in the activity and it is less severe. Goes through phases when real stiff and sore. 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 Thoracic pain has been since he was younger (27 y.o) and had pain in chest. He hasn't felt that again but still feels hot spots in back that come up. Has had B shoulder problems. Notices abdomen bloating and has hx of diahrea. Treatment Goals Patient/Caregiver Goals dec pain and be able to do normal activities w/o inc pain PT-OP-C Subjective Start: 03/09/23 10:58 Freq: Status: Active Protocol: Document 09/13/23 15:24 [facility] (Rec: 09/13/23 18:15 [facility] [id number]) OP-PT Subjective Patient Comments Patient Comments back hasn't been too bad. Has been doing stretches some still. Slowly start back to strength but recently got a puppy. HIp does feel irritated in sup hip flexor area/sup pelvis area and lat pelvis PT-OP-D Balance Start: 03/09/23 10:58 Freq: Status: Active Protocol: Document 03/23/23 09:11 [facility] (Rec: 03/23/23 10:22 [facility] [id number]) Balance Tests Single Limb Standing Single Limb- Right 25 sec w/inc deviation Single Limb- Left >30 sec PT-OP-G Mobility & Gait Start: 03/09/23 10:58 Freq: Status: Active Protocol: Document 03/23/23 09:11 [facility] (Rec: 03/23/23 10:22 [facility] [id number]) OP Gait Assessment Comments Gait Comments stiff in upper body, lat lean; dec stance time on RLE ( slighty); LEs turned out when walking PT-OP-J Posture/Palpation/Skin Start: 03/09/23 10:58 Freq: Status: Active Protocol: Document 09/13/23 15:24 [facility] (Rec: 09/13/23 18:15 [facility] [id number]) Posture Evaluation Clement Postural Classification System Elbow Flexion Test 2 Lumbar Protective Mechanism Left AP 3 Lumbar Protective Mechanism Right AP 1 Lumbar Protective Mechanism Left PA 3 Lumbar Protective Mechanism Right PA 5 PT-OP-K Range of Motion Start: 03/09/23 10:58 Freq: Status: Active Protocol: Document 03/23/23 09:11 [facility] (Rec: 03/23/23 10:22 [facility] [id number]) Hip Goniometric Range of Motion Hip Right Active Flexion w/Knee Flexed 84 Comments ant hip pain Left Active Flexion w/Knee Flexed 90 Comments ant hip pian PT-OP-M Strength Start: 03/09/23 10:58 Freq: Status: Active Protocol: Document 09/13/23 15:24 [facility] (Rec: 09/13/23 18:15 [facility] [id number]) Hip Strength Hip Manual Muscle Testing Right Flexion (L2) 3+ Fair+ Extension (S1) 5 Normal Abduction 4+ Good+ Adduction 4 Good External Rotation 5 Normal Internal Rotation 5 Normal Comments pain ant hip B w/hip flex and ER Left Flexion (L2) 3+ Fair+ Extension (S1) 5 Normal Abduction 5 Normal Adduction 5 Normal External Rotation 5 Normal Internal Rotation 5 Normal Knee Strength Knee Manual Muscle Testing Right Flexion (S2) 5 Normal Extension (L3) 5 Normal Left Flexion (S2) 5 Normal Extension (L3) 5 Normal PT-OP-Q Treatments Start: 03/09/23 10:58 Freq: Status: Active Protocol: Document 09/13/23 15:24 [facility] (Rec: 09/13/23 18:15 [facility] [id number]) Therapeutic Exercises Sidelying Exercises basking seal Side right Reps/Minutes 10 Other Exercises stretches Other Exercise Name self mob R hip inf glide Side right Equipment Used strap Reps/Minutes 30sec x2 isometrics Other Exercise Name MMT LEs & LPM, EFT Side bilateral Reps/Minutes 7 min Manual Therapy Treatment Consent Patient gave verbal consent for manual Yes treatment Soft Tissue Mobilization hip flexors Body Location R iliacus Mobilization Type Sustained Pressure Intensity/Depth Moderate Comments w/flex Joint Mobilizations innominate Joint R flex and ER FM hip Joint R inf FM PT-OP-T Assessment and Plan Start: 03/09/23 10:58 Freq: Status: Active Protocol: Document 09/13/23 15:24 [facility] (Rec: 09/13/23 18:15 [facility] [id number]) Physical Therapy Assessment Goals pain Short Term Goal (STG) pt will be able to lift LE in/ out of bed w/o in R hip pain. 04/23/2023 Patient reports this is improving, but pain is still present. 05/05-still notes pain with lat w/flex lift-less pain 06/01-less pain 07/27-dec pain and not always 09/12-recent inc STG Duration 09/23 Medical Insurance Clerk Goal (LTG) Pt will report no LE or back pain at the end of the day or when on his feet extended 05/05-back sore all the time; hip improving 06/02/23-less severe and less long duration 07/27-improved when consistant exercises LTG Duration achieved 09/12 balance Short Term Goal (STG) Pt will be able to do SLS on RLE EO for at least 30 sec STG Duration achieved Medical Insurance Clerk Goal (LTG) Pt will be able to do SLS B w/ EC for at least 15 sec 05/05-12 sec L; 8 sec 06/01-no change 07/27-n/t 09/12-about 5 sec B LTG Duration 11/07 strength Short Term Goal (STG) Pt will be indep w/HEP STG Duration acheived advancing as able Medical Insurance Clerk Goal (LTG) Pt will score 5/5 on all B LE MMT and at least 3/5 on LPM in all planes in order to show improved core and LE strength in order to create more LE stability during daily activities to dec pain 05/05-improved 06/01-improve 07/27-mostly achieved and add improvedt o 5 after manual 09/12-some dec w/hip today but improved LPM LTG Duration 11/07 LEFS Impairment 55/80 Short Term Goal (STG) Pt will improve LEFS score to at least 62/80 to show improved functional ability. 05/05-4306/01-60/80 07/27-n/t but pt has played bball 09/12- STG Duration 09/26 Senior Living Goal (LTG) Pt will improve LEFS score to at least 75/80 to show improved functional ability. LTG Duration 11/07 Assessment Summary Assessment pt has made some progress w/PT with improved pain overall after days work but still inc hip pain recently. Improved hip ROm after manual treatment today though and encouraged to do self inf glide at home. D/t inc personal activities, pt has had dec time for strength and was encouraged to make time as able for this. Cont PT for dec pain and imporved funciton Physical Therapy Plan Frequency and Duration Frequency of Treatment 1x/Week Duration of treatment (weeks) 8 Plan of Care Start Date 09/13/23 Plan of Care End Date 11/08/23 Therapeutic Interventions Therapeutic Interventions Balance Training,Gait Training ,Home Exercise Program,Joint Mobilizations,Manual Therapy, Neuromuscular Re-education, Patient/Caregiver Education, Self-Care/Home Management,Soft Tissue Mobilization,Taping, Therapeutic Activities, Therapeutic Exercises Modalities Cold Pack/Ice Massage,Electric Stimulation,Infrared Therapy, Traction- Mechanical, Ultrasound Next Visit Focus/Plan Next Note Type Treatment Note Next Visit Plan PNF for faciliation; manual for improved mobility
--- NOTE | 2023-09-14 18:13 | PT.OTN ---
Current Diagnoses Pain in right hip (09/13/23) Pain in right knee (09/13/23) Pain in left knee (09/13/23) Low back pain, unspecified (09/13/23) Muscle weakness (generalized) (09/13/23) Difficulty in walking, not elsewhere classified (09/13/23) Abnormal posture (09/13/23) Physical Therapy Treatment Note PT-OP-A Visit Information Start: 03/09/23 10:58 Freq: Status: Active Protocol: Document 09/13/23 15:24 [facility] (Rec: 09/13/23 18:15 [facility] [id number]) Out-Patient Physical Therapy Visit Information Visit Information Visit Type Progress Note Visit Start Time 15:22 Visit Stop Time 16:00 Visit Number Number of MACHINE FITTER Visits 0 PT-OP-B Current Condition Start: 03/09/23 10:58 Freq: Status: Active Protocol: Document 03/23/23 09:11 [facility] (Rec: 03/23/23 10:22 [facility] [id number]) Current Condition History of Current Condition Current Complaints R hip pain (1 year ago), back pain, B knee pain History of Current Condition Pt reports he has some stomach issues and is adjusting his diet. It seems its getting better but still a problem. he has cut out wheat, and coffee . Pt reports sometimes its just when he eats, that he has pain. Since going back to work, he has inc stress and notes he always had some stomach issues in HS when stressed. 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 He has neck pain, WEBBER, thoracic pain, R hip , LB, B feet and B hands. Hip issue comes and goes. Unsure if from his activities. Has been doing stretches which helps. He notes taking out the gluten has helped w/his dietary changes. He has lost about 10 lbs in last month. It first came on when stretching (tries to at night after work ). He was getting up off the floor and felt a pop in his hip and it has never been excrutiating, but it definitely affects like he is thinking about it. He doesn't notice it much when walking, but when when lifting leg out of bed, feels it in ant hip. Gets tingling in B ring and pinky finger. Knees and feet have been better since taken out wheat for past 3 weeks. LBP is always tight and tense and feels stiff. This has been several years. Does feel like the diet is improving. He used to have to wear shoes in his house d/t barefeet would cause back, knee and hip pian and now can not wear shoes, and only feels it way later in the activity and it is less severe. Goes through phases when real stiff and sore. 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 Thoracic pain has been since he was younger (27 y.o) and had pain in chest. He hasn't felt that again but still feels hot spots in back that come up. Has had B shoulder problems. Notices abdomen bloating and has hx of diahrea. Treatment Goals Patient/Caregiver Goals dec pain and be able to do normal activities w/o inc pain PT-OP-C Subjective Start: 03/09/23 10:58 Freq: Status: Active Protocol: Document 09/13/23 15:24 [facility] (Rec: 09/13/23 18:15 [facility] [id number]) OP-PT Subjective Patient Comments Patient Comments back hasn't been too bad. Has been doing stretches some still. Slowly start back to strength but recently got a puppy. HIp does feel irritated in sup hip flexor area/sup pelvis area and lat pelvis PT-OP-D Balance Start: 03/09/23 10:58 Freq: Status: Active Protocol: Document 03/23/23 09:11 [facility] (Rec: 03/23/23 10:22 [facility] [id number]) Balance Tests Single Limb Standing Single Limb- Right 25 sec w/inc deviation Single Limb- Left >30 sec PT-OP-G Mobility & Gait Start: 03/09/23 10:58 Freq: Status: Active Protocol: Document 03/23/23 09:11 [facility] (Rec: 03/23/23 10:22 [facility] [id number]) OP Gait Assessment Comments Gait Comments stiff in upper body, lat lean; dec stance time on RLE ( slighty); LEs turned out when walking PT-OP-J Posture/Palpation/Skin Start: 03/09/23 10:58 Freq: Status: Active Protocol: Document 09/13/23 15:24 [facility] (Rec: 09/13/23 18:15 [facility] [id number]) Posture Evaluation Clement Postural Classification System Elbow Flexion Test 2 Lumbar Protective Mechanism Left AP 3 Lumbar Protective Mechanism Right AP 1 Lumbar Protective Mechanism Left PA 3 Lumbar Protective Mechanism Right PA 5 PT-OP-K Range of Motion Start: 03/09/23 10:58 Freq: Status: Active Protocol: Document 03/23/23 09:11 [facility] (Rec: 03/23/23 10:22 [facility] [id number]) Hip Goniometric Range of Motion Hip Right Active Flexion w/Knee Flexed 84 Comments ant hip pain Left Active Flexion w/Knee Flexed 90 Comments ant hip pian PT-OP-M Strength Start: 03/09/23 10:58 Freq: Status: Active Protocol: Document 09/13/23 15:24 [facility] (Rec: 09/13/23 18:15 [facility] [id number]) Hip Strength Hip Manual Muscle Testing Right Flexion (L2) 3+ Fair+ Extension (S1) 5 Normal Abduction 4+ Good+ Adduction 4 Good External Rotation 5 Normal Internal Rotation 5 Normal Comments pain ant hip B w/hip flex and ER Left Flexion (L2) 3+ Fair+ Extension (S1) 5 Normal Abduction 5 Normal Adduction 5 Normal External Rotation 5 Normal Internal Rotation 5 Normal Knee Strength Knee Manual Muscle Testing Right Flexion (S2) 5 Normal Extension (L3) 5 Normal Left Flexion (S2) 5 Normal Extension (L3) 5 Normal PT-OP-Q Treatments Start: 03/09/23 10:58 Freq: Status: Active Protocol: Document 09/13/23 15:24 [facility] (Rec: 09/13/23 18:15 [facility] [id number]) Therapeutic Exercises Sidelying Exercises basking seal Side right Reps/Minutes 10 Other Exercises stretches Other Exercise Name self mob R hip inf glide Side right Equipment Used strap Reps/Minutes 30sec x2 isometrics Other Exercise Name MMT LEs & LPM, EFT Side bilateral Reps/Minutes 7 min Manual Therapy Treatment Consent Patient gave verbal consent for manual Yes treatment Soft Tissue Mobilization hip flexors Body Location R iliacus Mobilization Type Sustained Pressure Intensity/Depth Moderate Comments w/flex Joint Mobilizations innominate Joint R flex and ER FM hip Joint R inf FM PT-OP-T Assessment and Plan Start: 03/09/23 10:58 Freq: Status: Active Protocol: Document 09/13/23 15:24 [facility] (Rec: 09/13/23 18:15 [facility] [id number]) Physical Therapy Assessment Goals pain Short Term Goal (STG) pt will be able to lift LE in/ out of bed w/o in R hip pain. 04/23/2023 Patient reports this is improving, but pain is still present. 05/05-still notes pain with lat w/flex lift-less pain 06/01-less pain 07/27-dec pain and not always 09/12-recent inc STG Duration 09/23 Continuous Process Tanner Rotary Drum Goal (LTG) Pt will report no LE or back pain at the end of the day or when on his feet extended 05/05-back sore all the time; hip improving 06/02/23-less severe and less long duration 07/27-improved when consistant exercises LTG Duration achieved 09/12 balance Short Term Goal (STG) Pt will be able to do SLS on RLE EO for at least 30 sec STG Duration achieved Continuous Process Tanner Rotary Drum Goal (LTG) Pt will be able to do SLS B w/ EC for at least 15 sec 05/05-12 sec L; 8 sec 06/01-no change 07/27-n/t 09/12-about 5 sec B LTG Duration 11/07 strength Short Term Goal (STG) Pt will be indep w/HEP STG Duration acheived advancing as able Continuous Process Tanner Rotary Drum Goal (LTG) Pt will score 5/5 on all B LE MMT and at least 3/5 on LPM in all planes in order to show improved core and LE strength in order to create more LE stability during daily activities to dec pain 05/05-improved 06/01-improve 07/27-mostly achieved and add improvedt o 5 after manual 09/12-some dec w/hip today but improved LPM LTG Duration 11/07 LEFS Impairment 55/80 Short Term Goal (STG) Pt will improve LEFS score to at least 62/80 to show improved functional ability. 05/05-4306/01-60/80 07/27-n/t but pt has played bball 09/12- STG Duration 09/26 Shelter Goal (LTG) Pt will improve LEFS score to at least 75/80 to show improved functional ability. LTG Duration 11/07 Assessment Summary Assessment pt has made some progress w/PT with improved pain overall after days work but still inc hip pain recently. Improved hip ROm after manual treatment today though and encouraged to do self inf glide at home. D/t inc personal activities, pt has had dec time for strength and was encouraged to make time as able for this. Cont PT for dec pain and imporved funciton Physical Therapy Plan Frequency and Duration Frequency of Treatment 1x/Week Duration of treatment (weeks) 8 Plan of Care Start Date 09/13/23 Plan of Care End Date 11/08/23 Therapeutic Interventions Therapeutic Interventions Balance Training,Gait Training ,Home Exercise Program,Joint Mobilizations,Manual Therapy, Neuromuscular Re-education, Patient/Caregiver Education, Self-Care/Home Management,Soft Tissue Mobilization,Taping, Therapeutic Activities, Therapeutic Exercises Modalities Cold Pack/Ice Massage,Electric Stimulation,Infrared Therapy, Traction- Mechanical, Ultrasound Next Visit Focus/Plan Next Note Type Treatment Note Next Visit Plan PNF for faciliation; manual for improved mobility
--- NOTE | 2023-10-25 15:39 | PT.OPDS ---
Current Diagnoses Pain in right hip (09/13/23) Pain in right knee (09/13/23) Pain in left knee (09/13/23) Low back pain, unspecified (09/13/23) Muscle weakness (generalized) (09/13/23) Difficulty in walking, not elsewhere classified (09/13/23) Abnormal posture (09/13/23) Visit Care Team Role Provider Type Mina Van MD Family Provider Physician Primary Care Provider Specialty: Family Practice Address: [address] [place] [address], [address], [address] Email: [email or web address] Ju Tafoya PA-C Attending Provider Advanced Manager Environmental Health [employer] Safety Referring Provider Specialty: Medical Address: [address] [place] [address], [address], [id number] Email: [email or web address] Visit Number Visit Number Discharge Summary PT-OP-B Current Condition Start: 03/09/23 10:58 Freq: Status: Active Protocol: Document 03/23/23 09:11 [facility] (Rec: 03/23/23 10:22 [facility] [id number]) Current Condition History of Current Condition Current Complaints R hip pain (1 year ago), back pain, B knee pain History of Current Condition Pt reports he has some stomach issues and is adjusting his diet. It seems its getting better but still a problem. he has cut out wheat, and coffee . Pt reports sometimes its just when he eats, that he has pain. Since going back to work, he has inc stress and notes he always had some stomach issues in HS when stressed. 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 He has neck pain, WEBBER, thoracic pain, R hip , LB, B feet and B hands. Hip issue comes and goes. Unsure if from his activities. Has been doing stretches which helps. He notes taking out the gluten has helped w/his dietary changes. He has lost about 10 lbs in last month. It first came on when stretching (tries to at night after work ). He was getting up off the floor and felt a pop in his hip and it has never been excrutiating, but it definitely affects like he is thinking about it. He doesn't notice it much when walking, but when when lifting leg out of bed, feels it in ant hip. Gets tingling in B ring and pinky finger. Knees and feet have been better since taken out wheat for past 3 weeks. LBP is always tight and tense and feels stiff. This has been several years. Does feel like the diet is improving. He used to have to wear shoes in his house d/t barefeet would cause back, knee and hip pian and now can not wear shoes, and only feels it way later in the activity and it is less severe. Goes through phases when real stiff and sore. 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 Thoracic pain has been since he was younger (27 y.o) and had pain in chest. He hasn't felt that again but still feels hot spots in back that come up. Has had B shoulder problems. Notices abdomen bloating and has hx of diahrea. Treatment Goals Patient/Caregiver Goals dec pain and be able to do normal activities w/o inc pain PT-OP-C Subjective Start: 03/09/23 10:58 Freq: Status: Active Protocol: Document 09/13/23 15:24 [facility] (Rec: 09/13/23 18:15 [facility] [id number]) OP-PT Subjective Patient Comments Patient Comments back hasn't been too bad. Has been doing stretches some still. Slowly start back to strength but recently got a puppy. HIp does feel irritated in sup hip flexor area/sup pelvis area and lat pelvis PT-OP-D Balance Start: 03/09/23 10:58 Freq: Status: Active Protocol: Document 03/23/23 09:11 [facility] (Rec: 03/23/23 10:22 [facility] [id number]) Balance Tests Single Limb Standing Single Limb- Right 25 sec w/inc deviation Single Limb- Left >30 sec PT-OP-G Mobility & Gait Start: 03/09/23 10:58 Freq: Status: Active Protocol: Document 03/23/23 09:11 [facility] (Rec: 03/23/23 10:22 [facility] [id number]) OP Gait Assessment Comments Gait Comments stiff in upper body, lat lean; dec stance time on RLE ( slighty); LEs turned out when walking PT-OP-J Posture/Palpation/Skin Start: 03/09/23 10:58 Freq: Status: Active Protocol: Document 09/13/23 15:24 [facility] (Rec: 09/13/23 18:15 [facility] [id number]) Posture Evaluation [facility] Postural Classification System Elbow Flexion Test 2 Lumbar Protective Mechanism Left AP 3 Lumbar Protective Mechanism Right AP 1 Lumbar Protective Mechanism Left PA 3 Lumbar Protective Mechanism Right PA 5 PT-OP-K Range of Motion Start: 03/09/23 10:58 Freq: Status: Active Protocol: Document 03/23/23 09:11 [facility] (Rec: 03/23/23 10:22 [facility] [id number]) Hip Goniometric Range of Motion Hip Right Active Flexion w/Knee Flexed 84 Comments ant hip pain Left Active Flexion w/Knee Flexed 90 Comments ant hip pian PT-OP-M Strength Start: 03/09/23 10:58 Freq: Status: Active Protocol: Document 09/13/23 15:24 [facility] (Rec: 09/13/23 18:15 [facility] [id number]) Hip Strength Hip Manual Muscle Testing Right Flexion (L2) 3+ Fair+ Extension (S1) 5 Normal Abduction 4+ Good+ Adduction 4 Good External Rotation 5 Normal Internal Rotation 5 Normal Comments pain ant hip B w/hip flex and ER Left Flexion (L2) 3+ Fair+ Extension (S1) 5 Normal Abduction 5 Normal Adduction 5 Normal External Rotation 5 Normal Internal Rotation 5 Normal Knee Strength Knee Manual Muscle Testing Right Flexion (S2) 5 Normal Extension (L3) 5 Normal Left Flexion (S2) 5 Normal Extension (L3) 5 Normal PT-OP-T Assessment and Plan Start: 03/09/23 10:58 Freq: Status: Active Protocol: Document 10/25/23 15:37 [facility] (Rec: 10/25/23 15:39 [facility] [id number]) Physical Therapy Assessment Goals pain Short Term Goal (STG) pt will be able to lift LE in/ out of bed w/o in R hip pain. 04/23/2023 Patient reports this is improving, but pain is still present. 05/05-still notes pain with lat w/flex lift-less pain 06/01-less pain 07/27-dec pain and not always 09/12-recent inc STG Duration 09/23 Floorleader Goal (LTG) Pt will report no LE or back pain at the end of the day or when on his feet extended 05/05-back sore all the time; hip improving 06/02/23-less severe and less long duration 07/27-improved when consistant exercises LTG Duration achieved 09/12 balance Short Term Goal (STG) Pt will be able to do SLS on RLE EO for at least 30 sec STG Duration achieved Assisted Goal (LTG) Pt will be able to do SLS B w/ EC for at least 15 sec 05/05-12 sec L; 8 sec 06/01-no change 07/27-n/t 09/12-about 5 sec B LTG Duration 11/07 strength Short Term Goal (STG) Pt will be indep w/HEP STG Duration acheived advancing as able Floorleader Goal (LTG) Pt will score 5/5 on all B LE MMT and at least 3/5 on LPM in all planes in order to show improved core and LE strength in order to create more LE stability during daily activities to dec pain 05/05-improved 06/01-improve 07/27-mostly achieved and add improvedt o 5 after manual 09/12-some dec w/hip today but improved LPM LTG Duration 11/07 LEFS Impairment 55/80 Short Term Goal (STG) Pt will improve LEFS score to at least 62/80 to show improved functional ability. 05/05-43/80 06/01-60/80 07/27-n/t but pt has played bball 09/12-54/80 STG Duration 09/26 Assisted Goal (LTG) Pt will improve LEFS score to at least 75/80 to show improved functional ability. LTG Duration 11/07 Assessment Summary Assessment pt has made progress w/PT but still had some back and hip pain. Much improved w/PT but occ notes pain. He has not been seen in about 6 weeks. DC d/t no longer attending PT. Pt does have HEP Physical Therapy Plan Discharge Physical Therapy Discharge Reasons No Longer Attending PT
== END 2023-10-28 08:54 | disposition home or self-care (01) ==
LOC: PHYS 15:15
PROVIDERS: Family Provider Family Medicine; PCP Family Medicine; Referring Provider Physician Assistant; Visit Provider Physician Assistant
DX: M25.551 Pain in right hip (principal); M62.81 Muscle weakness (generalized); R29.3 Abnormal posture; R26.2 Difficulty in walking, not elsewhere classified; M54.50 Low back pain, unspecified; M25.561 Pain in right knee; M25.562 Pain in left knee
CPT/HCPCS: 97110; 97112; 97140; 97162; 97535

== ENCOUNTER → 2023-09-28 11:00 | Outpatient (CLI) | payer OTHER, MEDICAID, SELFPAY ==
[2023-09-28 13:03] LABS: Influenza A - CEPHEID Flu A NEGATIVE (NEGATIVE); Influenza B - CEPHEID Flu B NEGATIVE (NEGATIVE); Respiratory Syncytial Virus Negative (Negative)
[2023-09-28 13:14] LABS: COVID-19 CEPHEID 4-PLEX PCR Negative (Negative)
== END ==
PROVIDERS: Family Provider Family Medicine; PCP Family Medicine; Visit Provider Physician Assistant
DX: R05.9 Cough, unspecified (principal)
CPT/HCPCS: 0241U

== ENCOUNTER → 2023-09-28 12:29 | Outpatient (CLI) | payer OTHER, MEDICAID, SELFPAY | PROVIDERS: Family Provider Family Medicine; PCP Family Medicine; Referring Provider Physician Assistant; Visit Provider Physician Assistant | DX: J30.2 Other seasonal allergic rhinitis (principal) | CPT/HCPCS: 87635; 87400 ×2; 87420; 0241U; 82785; 86003 ==

== ENCOUNTER → 2023-10-25 14:13 | Outpatient (CLI) | payer OTHER, MEDICAID, SELFPAY ==
--- NOTE | 2023-10-25 14:15 | DI.RAD.S_ITS ---
PROCEDURE: XR KNEE RT 3V INDICATIONS: Right knee pain TECHNIQUE: 3 views of the knee were acquired. COMPARISON: None. FINDINGS: Bones: No fractures or dislocations. No suspicious bony lesions. Soft tissues: No joint effusion. No suspicious soft tissue calcifications. IMPRESSION: No acute bony abnormality or significant effusion. Approved by: Goran Zapata M.D. on 10/25/2023 at 16:30
== END ==
PROVIDERS: Family Provider Family Medicine; PCP Family Medicine; Referring Provider Physician Assistant Surgical; Visit Provider Physician Assistant Surgical
DX: S89.91XA Unspecified injury of right lower leg, initial encounter (principal); X58.XXXA Exposure to other specified factors, initial encounter
CPT/HCPCS: 73562

== ENCOUNTER → 2024-01-12 14:09 | Outpatient (CLI) | payer OTHER, MEDICAID, SELFPAY ==
[2024-01-21 10:10] LABS: DQ8 (DQA1 03XX, DQB1 0302) Negative (.)
== END ==
PROVIDERS: Family Provider Family Medicine; PCP Family Medicine; Referring Provider Physician Assistant; Visit Provider Physician Assistant
DX: R19.7 Diarrhea, unspecified (principal); R14.0 Abdominal distension (gaseous); R14.3 Flatulence; Z79.1 Long term (current) use of non-steroidal anti-inflammatories (NSAID)
CPT/HCPCS: 36415; 81377; 82784; 83516; 86255

== ENCOUNTER → 2024-01-14 09:12 | Outpatient (CLI) | payer OTHER, MEDICAID, SELFPAY ==
[2024-01-14 13:23] LABS: Adenovirus F 40/41 Not Detected (Not Detect); Astrovirus Not Detected (Not Detect); Campylobacter Not Detected (Not Detect); Clostridium difficile toxin AB Not Detected (Not Detect); Cryptosporidium Not Detected (Not Detect); Cyclospora cayetanensis Not Detected (Not Detect); Entamoeba histolytica Not Detected (Not Detect); Enteroaggregative E.coli Not Detected (Not Detect); Enteropathogenic E.coli Not Detected (Not Detect); Enterotoxigenic E.coli It/st Not Detected (Not Detect); Giardia lamblia Not Detected (Not Detect); Norovirus GI/GII Not Detected (Not Detect); Plesiomonsa shigelloides Not Detected (Not Detect); Rotavirus A Not Detected (Not Detect); Salmonella Not Detected (Not Detect); Sapovirus Not Detected (Not Detect); Shiga-like toxin-prod E.coli Not Detected (Not Detect); Shigella/Enteroinvasive E.coli Not Detected (Not Detect); Vibrio Not Detected (Not Detect); Vibrio cholerae Not Detected (Not Detect); Yersinia enterocolitica Not Detected (Not Detect)
[2024-01-17 13:11] LABS: H. Pylori Antigen Stool Negative (Negative)
[2024-01-19 19:39] LABS: Calprotectin, Stool 8 ug/g (0-120)
== END ==
PROVIDERS: Family Provider Family Medicine; PCP Family Medicine; Referring Provider Physician Assistant; Visit Provider Physician Assistant
DX: R14.0 Abdominal distension (gaseous) (principal); R14.3 Flatulence; R19.7 Diarrhea, unspecified; Z79.1 Long term (current) use of non-steroidal anti-inflammatories (NSAID)
CPT/HCPCS: 83993; 87338; 87507

== ENCOUNTER → 2024-02-09 12:03 | Outpatient (CLI) | payer OTHER, MEDICAID, SELFPAY ==
--- NOTE | 2024-02-09 12:05 | DI.RAD.S_ITS ---
PROCEDURE: XR CHEST 2V INDICATIONS: cough, fever, SPO2 94% RA. No lung hx. TECHNIQUE: 2 views of the chest were acquired. COMPARISON: None. FINDINGS: Surgical changes and devices: None. Lungs and pleura: Mild right basilar opacity. No pleural effusions or pneumothorax. Mediastinum: Mediastinal contours are normal. Heart size is normal. Bones and chest wall: No suspicious bony abnormalities. Soft tissues appear unremarkable. IMPRESSION: Mild right basilar opacity concerning for infection. Dictated by: Jamel Thompson M.D. on 02/09/2024 at 14:31 Approved by: Jamel Thompson M.D. on 02/09/2024 at 14:32
== END ==
PROVIDERS: Family Provider Family Medicine; PCP Family Medicine; Referring Provider Physician Assistant Medical; Visit Provider Physician Assistant Medical
DX: J06.9 Acute upper respiratory infection, unspecified (principal)
CPT/HCPCS: 71046

== ENCOUNTER → 2024-03-27 13:11 | Outpatient (CLI) | payer OTHER, SELFPAY | PROVIDERS: Family Provider Family Medicine; PCP Family Medicine; Visit Provider Registered Nurse | DX: J02.9 Acute pharyngitis, unspecified (principal) | CPT/HCPCS: 87070; 87880 ==

== ENCOUNTER → 2024-05-09 11:06 | Outpatient (CLI) | payer OTHER, SELFPAY ==
[2024-05-09 11:51] LABS: Influenza A - CEPHEID Flu A POSITIVE (NEGATIVE); Influenza B - CEPHEID Flu B NEGATIVE (NEGATIVE); Respiratory Syncytial Virus Negative (Negative)
[2024-05-09 11:52] LABS: COVID-19 CEPHEID 4-PLEX PCR Negative (Negative)
== END ==
PROVIDERS: Family Provider Family Medicine; PCP Family Medicine; Visit Provider Physician Assistant
DX: R05.1 Acute cough (principal)
CPT/HCPCS: 87400; 87420; 87635; 0241U

== ENCOUNTER → 2024-09-04 11:22 | Outpatient (CLI) | payer OTHER, SELFPAY | PROVIDERS: Family Provider Family Medicine; PCP Family Medicine; Referring Provider Nurse Practitioner Family; Visit Provider Nurse Practitioner Family | DX: R19.7 Diarrhea, unspecified (principal) | CPT/HCPCS: 87205; 87329 ==